=== PATIENT | female | born 1965 | race Caucasian/White ===

== ENCOUNTER 2017-08-23 08:20 | Day surgery (SDC) | payer BC ==
[2015-12-08 08:38] VITALS: BMI 36.1
--- NOTE | 2017-08-24 09:42 | PROCN ---
DATE: 08/23/2017 PROCEDURE: Tilt table test. INDICATIONS: Recurrent dizziness. MANGANESE WHEELER: Panda Reece MD DESCRIPTION OF PROCEDURE: The patient was put on the table and tilted at 30 degrees for 5 minutes and 60 degrees for 15 minutes. Blood pressure and heart rate response were monitored every 3 minutes. The patient experienced mild dizziness throughout the test. There was a 19 mmHg drop in blood pressure and a 12 beats per minute drop in heart rate. The drop in blood pressure and heart rate was slow. The patient tolerated the procedure well. IMPRESSION: Orthostatic hypotension. Dehydration needs to be ruled out. Panda Reece MD
== END 2017-08-23 10:00 | disposition home or self-care (01) ==
LOC: C.CATHLAB 08:20
PROVIDERS: ATTEND Internal Medicine
DX: I95.1 Orthostatic hypotension (principal)

== ENCOUNTER 2017-09-12 09:35 | Emergency (ER) | payer OTHER, BC ==
[2017-09-12 09:36] VITALS: BMI 36.1
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
[2017-09-12] MEDS ORDERED: Labetalol 25mg/5ml Syringe IVP STA (09:57)
[2017-09-12 10:30] LABS: BASO # 0.1 K/uL (0.0-0.2); BASO % 0.6 % (0.0-2.0); EOS # 0.1 K/uL (0.0-0.7); EOS % 0.6 % (0.0-4.0); HEMOGLOBIN 13.1 g/dL (11.0-16.0); LYMPH # 1.4 K/uL (1.0-4.3); LYMPH % 14.1 % (20.0-40.0); MEAN CELL VOLUME 82.2 fL (81.0-99.0); MEAN CORPUSCULAR HEMOGLOBIN 28.2 pg (27.0-31.0); MEAN CORPUSCULAR HGB CONC 34.3 g/dL (33.0-37.0); MEAN PLATELET VOLUME 10.9 fL (7.2-11.7); MONO % 10.1 % (0.0-10.0); NEUT # 7.2 K/uL (1.8-7.0); NEUT % 74.6 % (50.0-75.0); RBC 4.65 Mil/uL (3.80-5.20); RED CELL DISTRIBUTION WIDTH 14.2 % (11.5-14.5); WHITE BLOOD COUNT 9.6 K/uL (4.8-10.8)
[2017-09-12 10:49] LABS: ALB/GLOB RATIO 1.2 (1.0-2.1); ALBUMIN 4.2 g/dL (3.5-5.0); ALT/SGPT 114 U/L (9-52); AST/SGOT 87 U/L (14-36); BLOOD UREA NITROGEN 6 mg/dL (7-17); CALCIUM 9.2 mg/dl (8.6-10.4); GFR AFRICAN-AMERICAN > 60; GFR NON-AFRICAN AMERICAN > 60
--- NOTE | 2017-09-12 11:12 | CT ---
PROCEDURE: CT HEAD WITHOUT CONTRAST. HISTORY: TRAUMA COMPARISON: None available. TECHNIQUE: Axial computed tomography images were obtained through the head/brain without intravenous contrast. Radiation dose: Total exam DLP = 831.14 mGy-cm. This CT exam was performed using one or more of the following dose reduction techniques: Automated exposure control, adjustment of the mA and/or kV according to patient size, and/or use of iterative reconstruction technique. FINDINGS: HEMORRHAGE: No intracranial hemorrhage. BRAIN: No mass effect or edema. No atrophy or chronic microvascular ischemic changes. VENTRICLES: Unremarkable. No hydrocephalus. CALVARIUM: Unremarkable. PARANASAL SINUSES: Unremarkable as visualized. No significant inflammatory changes. MASTOID AIR CELLS: Unremarkable as visualized. No inflammatory changes. OTHER FINDINGS: None. IMPRESSION: Normal CT of the Head. No intracranial hemorrhage.
--- NOTE | 2017-09-12 11:21 | CT ---
PROCEDURE: CT Cervical Spine without contrast HISTORY: TRAUMA COMPARISON: None available. TECHNIQUE: Axial computed tomography images were obtained of the cervical spine without the use of intravenous contrast. Coronal and sagittal reformatted images were created and reviewed. Radiation dose: Total exam DLP = 538.78 mGy-cm. This CT exam was performed using one or more of the following dose reduction techniques: Automated exposure control, adjustment of the mA and/or kV according to patient size, and/or use of iterative reconstruction technique. FINDINGS: VERTEBRAE: The vertebral bodies are maintained in height. Normal alignment is maintained. The atlantoaxial articulation and odontoid process are intact. There is mild reversal of the normal lordotic curvature of the cervical spine indicating possible muscular spasm. DISCS/SPINAL CANAL/NEURAL FORAMINA: There is narrowing of the C4-5, C5-6 and C6-7 intervertebral disc spaces consistent with degenerative disc disease. There is calcified disc bulge at C5-6 and at C4-5 there is diffuse disc bulge as well as bony ridge. This results in mild central spinal stenosis at C4-5 and moderate central spinal stenosis at C5-6. Multilevel bilateral neural foraminal stenosis is noted, most pronounced on the left side at C5-6. PARASPINAL SOFT TISSUES: Unremarkable. OTHER FINDINGS: None. IMPRESSION: No evidence fracture or dislocation. Multilevel degenerative disc disease with neural foraminal and central spinal stenosis. Mild reversal of the normal curvature of the cervical spine indicates possible muscular spasm.
--- NOTE | 2017-09-12 11:54 | RAD ---
PROCEDURE: CHEST RADIOGRAPH, 1 VIEW HISTORY: TRAUMA COMPARISON: None available. FINDINGS: LUNGS: Clear. PLEURA: No pneumothorax or pleural fluid seen. CARDIOVASCULAR: Normal. OSSEOUS STRUCTURES: No significant abnormalities. VISUALIZED UPPER ABDOMEN: Normal. OTHER FINDINGS: None. IMPRESSION: No active disease.
--- NOTE | 2017-09-12 12:45 | RAD ---
PROCEDURE: Radiographs of the pelvis. HISTORY: TRAUMA COMPARISON: None. FINDINGS: BONES: Pelvic Bones: Unremarkable. Hips: Grossly unremarkable. JOINTS: Sacroiliac Joints: Unremarkable. Pubic Symphysis: Unremarkable. OTHER FINDINGS: None. IMPRESSION: Unremarkable radiographs of the pelvis.
[2017-09-12 13:23] VITALS: BP 158/90; PULSE 82; RESP 18; TEMP 98.4
--- NOTE | 2017-09-12 13:33 | RAD ---
PROCEDURE: Left Knee Radiographs. HISTORY: Pain. COMPARISON: None. FINDINGS: BONES: Left knee arthroplasty. No evidence of prosthesis loosening. No osseous fracture. Prosthesis intact. JOINTS: Normal. No osteoarthritis. JOINT EFFUSION: None. OTHER FINDINGS: None. IMPRESSION: No acute fracture.
[2017-09-12 13:48] VITALS: O2SAT 99
--- NOTE | 2017-09-12 18:54 | CARD ---
APPROVED REPORT EKG Measurement Heart [id number] <Conclusion> Normal sinus rhythm Voltage criteria for left ventricular hypertrophy Cannot rule out Septal infarct, age undetermined Abnormal ECG
== END 2017-09-12 13:57 | disposition home or self-care (01) ==
LOC: C.ER 09:35
DX: M25.562 Pain in left knee (principal); I10 Essential (primary) hypertension; V89.2XXA Person injured in unspecified motor-vehicle accident, traffic, initial encounter

== ENCOUNTER 2017-09-12 16:20 | Emergency (ER) | payer BC ==
[2017-09-12 16:37] VITALS: BMI 32.1
[2017-09-12 16:50] VITALS: RESP 18; TEMP 98
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
[2017-09-12 17:49] VITALS: BP 159/92; PULSE 80
[2017-09-12 17:50] VITALS: O2SAT 98
== END 2017-09-12 17:52 | disposition home or self-care (01) ==
LOC: C.ER 16:20
DX: I10 Essential (primary) hypertension (principal)

== ENCOUNTER 2018-01-11 22:46 | Inpatient (IN) | payer OTHER, BC ==
[2018-01-04 17:37] VITALS: BMI 34.2
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
[2018-01-12] MEDS ORDERED: Labetalol 25mg/5ml Syringe IVP STA (02:58)
[2018-01-12] MEDS ORDERED: oxyCODONE 5 mg Immediate Release Tab PO PRN (03:46)
[2018-01-12] MEDS ORDERED: Iodixanol 320 mg/ml 150 ml Bottle IV ONE (05:35)
[2018-01-12] MEDS ORDERED: Home Med 1 UNIT (Cefepime 1gm In Ns 100ml [Maxipime 1gm] 1 GM) IVPB SCH (06:00)
[2018-01-12] MEDS ORDERED: Cefepime IV 1 gm in Dextrose 1 GM/50 ML BAG IVPB SCH (06:00)
[2018-01-12] MEDS: HYDROmorphone 1 mg/ml ISec IVP PRN ×3 (07:14→19:38)
[2018-01-12 07:47] LABS: ALB/GLOB RATIO 1.4 (1.0-2.1); ALT/SGPT 73 U/L (9-52); AST/SGOT 82 U/L (14-36); BLOOD UREA NITROGEN 8 mg/dL (7-17); CALCIUM 9.2 mg/dl (8.6-10.4); GFR NON-AFRICAN AMERICAN > 60
[2018-01-12 07:49] LABS: BASO # 0.1 K/uL (0.0-0.2); BASO % 0.7 % (0.0-2.0); EOS # 0.3 K/uL (0.0-0.7); EOS % 3.1 % (0.0-4.0); LYMPH # 1.8 K/uL (1.0-4.3); LYMPH % 22.2 % (20.0-40.0); MEAN CELL VOLUME 83.8 fL (81.0-99.0); MEAN CORPUSCULAR HEMOGLOBIN 29.1 pg (27.0-31.0); MEAN CORPUSCULAR HGB CONC 34.8 g/dL (33.0-37.0); MEAN PLATELET VOLUME 9.9 fL (7.2-11.7); MONO # 0.9 K/uL (0.0-0.8); MONO % 10.6 % (0.0-10.0); NEUT # 5.3 K/uL (1.8-7.0); NEUT % 63.4 % (50.0-75.0); RBC 3.45 Mil/uL (3.80-5.20); RED CELL DISTRIBUTION WIDTH 14.6 % (11.5-14.5); WHITE BLOOD COUNT 8.3 K/uL (4.8-10.8)
[2018-01-12 07:59] LABS: INR 1.2; PROTHROMBIN TIME 12.9 SECONDS (9.7-12.2)
--- NOTE | 2018-01-12 09:33 | CT ---
Date of service: 01/12/2018 PROCEDURE: CT Angiography Abdomen, Pelvis and Lower Extremity with Contrast HISTORY: L popliteal aneurysm COMPARISON: None available. TECHNIQUE: Technique: CT angiography of the abdomen, pelvis and bilateral lower extremities performed in the arterial phase of enhancement. Coronal and sagittal reformats, and well as rotating MIP images of the vessels generated at the workstation. Intravenous contrast dose: 150 cubic centimeters Visipaque 320 Radiation dose: Total exam DLP = 2469.75 mGy-cm. This CT exam was performed using one or more of the following dose reduction techniques: Automated exposure control, adjustment of the mA and/or kV according to patient size, and/or use of iterative reconstruction technique. FINDINGS: CT ANGIOGRAPHY: ABDOMINAL AORTA:: The abdominal was unremarkable. MAJOR AORTIC BRANCHES: Celiac Derry: Unremarkable. Superior mesenteric artery: Unremarkable. Inferior mesenteric artery: Unremarkable. Renal arteries: Unremarkable. PELVIC ARTERIES: Right Common Iliac: Unremarkable. Right External Iliac: Unremarkable. Right Internal Iliac: Unremarkable. Left Common Iliac: Unremarkable. Left External Iliac: Unremarkable. Left Internal Iliac: Unremarkable. RIGHT LOWER EXTREMITY ARTERIES: Right Common Femoral: Unremarkable. Right Superficial Femoral: Unremarkable. Right Profunda Femoris: Unremarkable. Right Popliteal:There is a bilobed popliteal artery pseudoaneurysm which is mixed density. A 2 cm x 1.5 centimeter pseudoaneurysm posteriorly toward the popliteal fossa and a 2.7 x 2.2 cm pseudoaneurysm anterior/medial. There is some mass effect on the popliteal artery which is patent. Right Anterior Tibial: Unremarkable. Right Tibioperoneal Trunk: Unremarkable. Right Posterior Tibial: Unremarkable. Right Peroneal: Unremarkable. Right dorsalis pedis : Unremarkable. LEFT LOWER EXTREMITY ARTERIES: Left Common Femoral: Unremarkable. Left Superficial Femoral: Unremarkable. Left Profunda Femoris: Unremarkable. Left Popliteal: Unremarkable. Left Anterior Tibial: Unremarkable. Left Tibioperoneal Trunk: Unremarkable. Left Posterior Tibial: Unremarkable. Left Peronea: Unremarkable. Left Dorsalis pedis: Unremarkable. NON-ANGIOGRAPHIC ASPECT OF THE EXAM: LOWER THORAX: Unremarkable. LIVER: Decreased attenuation of the liver from hepatic steatosis. No gross lesion or ductal dilatation. GALLBLADDER AND BILE DUCTS: Unremarkable. PANCREAS: Unremarkable. No gross lesion or ductal dilatation. SPLEEN: Unremarkable. ADRENALS: Unremarkable. No mass. KIDNEYS AND URETERS: Unremarkable. No hydronephrosis. No solid mass. STOMACH AND BOWEL: Unremarkable. No obstruction. No gross mural thickening. APPENDIX: Normal appendix. PERITONEUM: Unremarkable. No free fluid. No free air. LYMPH NODES: Unremarkable. No enlarged lymph nodes. BLADDER: Unremarkable. REPRODUCTIVE: Unremarkable. BONES: No acute fracture. OTHER FINDINGS: None. IMPRESSION: CT angiogram abdomen/pelvis: 1. Remarkable CT angiogram of the abdomen pelvis. Left lower extremity CT angiogram: 1. Large bilobed popliteal artery pseudoaneurysm. The largest aneurysm sac pseudoaneurysm sac measures 2.7 x 2.2 centimeter. There is a smaller aneurysm sac measuring 2 centimeters x 1.5 centimeters. There is some mass effect on the popliteal artery which is otherwise patent. 2. The anterior tibial artery, posterior tibial artery and peroneal artery are patent. 3. The common femoral artery, profunda femoral artery and superficial femoral artery are patent with no aneurysm or stenosis. Right lower extremity CT angiogram: Unremarkable right lower extremity CT angiogram.
[2018-01-12] MEDS: Pantoprazole 40 mg EC Tab PO SCH (10:59)
[2018-01-12] MEDS: Naproxen 550 mg Tab PO SCH ×2 (10:59→18:09)
[2018-01-12] MEDS: Bacitracin 500 Units/gm Oint Foilpak UD TOP SCH ×2 (10:59→18:10)
[2018-01-12] MEDS ORDERED: oxyCODONE 10 mg Immediate Release Tab PO ONE (11:53)
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
[2018-01-12] MEDS: Ciprofloxacin 400mg/200ml D5W 400 MG/200 ML BAG IVPB SCH (14:05)
[2018-01-12] MEDS: DAPTOmycin 500 MG in Sodium Chloride 0.9% 100 ML IV SCH (15:44)
[2018-01-12] MEDS: Lactobacillus Acidophilus 500 MU Cap PO SCH (18:10)
--- NOTE | 2018-01-12 18:59 | CP.PCM.PN ---
<Martin Darden - Last Filed: 01/12/18 18:53> Subjective - Date & Time of Evaluation Date of Evaluation: 01/12/18 Time of Evaluation: 18:53 - Subjective Subjective: Patient seen and examined at bedside. Patient has no acute complaints. She has mild tenderness on the affected leg near the knee. Pt denies fevers or chills. Pt slept well and tolerating PO meals. Pt denies nausea, vomiting, diarrhea, dizziness, headache, skin temperature changes. Objective - Vital Signs/Intake and Output Vital Signs (last 24 hours): Temp Pulse Resp BP Pulse Ox 98.0 F 71 20 132/84 98 01/12/18 00:00 01/12/18 00:00 01/12/18 00:00 01/12/18 18:09 01/12/18 14:00 - Medications Medications: Current Medications Acetaminophen (Tylenol 325mg Tab) 650 mg PO Q6 PRN PRN Reason: Pain 1-3, Fever>100.4F Amlodipine Besylate (Norvasc) 5 mg PO DAILY [facility] Last Admin: 01/12/18 10:59 Dose: 5 mg Aspirin (Aspirin) 325 mg PO BID [facility] Last Admin: 01/12/18 18:10 Dose: 325 mg Bacitracin (Bacitracin) 1 ea TOP BID [facility] Last Admin: 01/12/18 18:10 Dose: 1 ea Carvedilol (Coreg) 25 mg PO BID [facility] Last Admin: 01/12/18 18:09 Dose: 25 mg Docusate Sodium (Colace) 100 mg PO TID [facility] Last Admin: 01/12/18 18:10 Dose: 100 mg Ferrous Sulfate (Feosol) 325 mg PO TID [facility] Last Admin: 01/12/18 18:10 Dose: 325 mg Hydromorphone HCl (Dilaudid) 1 mg IVP Q4H PRN PRN Reason: Pain, severe (8-10) Last Admin: 01/12/18 11:01 Dose: 1 mg Daptomycin 500 mg/ Sodium (Chloride) 100 mls @ 100 mls/hr IV Q24H [facility] PRN Reason: Protocol Stop: 01/17/18 14:01 Last Admin: 01/12/18 15:44 Dose: 100 mls/hr Ciprofloxacin (Cipro 400mg/200ml Dsw) 400 mg in 200 mls @ 133 mls/hr IVPB Q12H [facility] PRN Reason: Protocol Last Admin: 01/12/18 14:05 Dose: 133 mls/hr Lactobacillus Acidophilus (Bacid Acidophilus) 1 cap PO BID [facility] Last Admin: 01/12/18 18:10 Dose: 1 cap Losartan Potassium (Cozaar) 50 mg PO DAILY [facility] Last Admin: 01/12/18 10:59 Dose: 50 mg Naproxen (Anaprox Ds) 550 mg PO BID [facility] Last Admin: 01/12/18 18:09 Dose: 550 mg Pantoprazole Sodium (Protonix Ec Tab) 40 mg PO DAILY [facility] Last Admin: 01/12/18 10:59 Dose: 40 mg Rosuvastatin Calcium (Crestor) 10 mg PO HS [facility] Zolpidem Tartrate (Ambien) 5 mg PO HS PRN PRN Reason: Insomnia - Labs Labs: 01/12/18 07:00 01/12/18 07:00 PT 12.9 SECONDS (9.7-12.2) H 01/12/18 07:00 INR 1.2 01/12/18 07:00 - Constitutional Appears: Well, No Acute Distress - Head Exam Head Exam: ATRAUMATIC, NORMAL INSPECTION - Eye Exam Eye Exam: EOMI, Normal appearance Pupil Exam: NORMAL ACCOMODATION - ENT Exam ENT Exam: Mucous Membranes Moist, Normal Exam - Respiratory Exam Respiratory Exam: Clear to Ausculation Bilateral, NORMAL BREATHING PATTERN - Cardiovascular Exam Cardiovascular Exam: REGULAR RHYTHM, +S1, +S2 - GI/Abdominal Exam GI & Abdominal Exam: Normal Bowel Sounds - Extremities Exam Additional comments: +well-healing vertical incision on L knee. Aneurysm is appreciated behind knee with bounding pulse. - Neurological Exam Neurological Exam: Alert, Awake, CN II-XII Intact, Normal Gait, Oriented x3 - Skin Skin Exam: Dry, Intact, Normal Color Additional comments: +well-healing vertical incision on L knee. Assessment and Plan - Assessment and Plan (Free Text) Assessment: Left Popliteal Aneurysm Vascular Surgery Consult, Dr. Caceres * Angio Abd Ileo/Fem Runoff - Large bilobed popliteal artery aneurysm -Larges sac 2.7 x 2.2 cm, smaller sac 2x1.5 cm. Patent popliteal artery. * NPO * f/u recs * Plan is for patient to go for aneurysm repair (balloon angioplasty with dye) Monday with Dr. Caceres and Dr. Avendano Left LE US 01/10/18: * No sonographic or Doppler evidence for DVT in left lower extremity. * Suspicion of pseudoaneurysm in the popliteal fossa. Small complex collection immediately adjacent to this may represent a small hematoma. Infected Left Knee Hardware ID consulted, Dr. Chatman * Patient was being treated with Daptomycin over at [facility] prior to being transferred to [facility]. * Patient was scheduled to complete Daptomycin course on 01/16/18. s/p Left knee removal of hardware, I&D and placement of antibiotic spacer on . POD#8 - per ID, ABx spacer to remain x8 weeks Continue medication regiment at [facility]: * Acetaminophen 650mg PO q6h prn * Aspirin 325mg PO BID * Bacitracin 1ea TOP BID * Morphine 2 mg IVP q6h prn * Colace 100mg PO TID * Naproxen 500mg PO BID * Cefepime 1gm IVPB q8h * Daptomycin --> pending ID approval (completion date 01/16) Hypertension continue to monitor Continue medication regiment at [facility]: * Amlodipine 5mg PO daily * Carvedilol 25mg PO BID * Losartan 50mg PO daily Hyperlipidemia Continue medication regiment at [facility]: * Crestor 10mg PO daily Prophylactic Care VTE ppx - anticoag contraindicated 2/2 pre-op procedure, pending vascular surgery GI ppx - Protonix 40mg PO daily Ferrous Sulfate 325mg PO TID - continued home med Ambien 5mg PO HS prn - continued home med <Pj Mckay - Last Filed: 01/13/18 19:15> Objective - Vital Signs/Intake and Output Vital Signs (last 24 hours): Temp Pulse Resp BP Pulse Ox 97.9 F 69 20 157/77 H 97 01/13/18 16:00 01/13/18 16:00 01/13/18 16:00 01/13/18 18:03 01/13/18 16:00 Intake and Output: 01/13/18 01/14/18 18:59 06:59 Intake Total 280 Balance 280 - Medications Medications: Current Medications Amlodipine Besylate (Norvasc) 5 mg PO DAILY [facility] Last Admin: 01/13/18 10:35 Dose: 5 mg Aspirin (Aspirin) 325 mg PO BID [facility] Last Admin: 01/13/18 17:09 Dose: Not Given Bacitracin (Bacitracin) 1 ea TOP BID [facility] Last Admin: 01/13/18 18:05 Dose: 1 ea Carvedilol (Coreg) 25 mg PO BID [facility] Last Admin: 01/13/18 18:03 Dose: 25 mg Docusate Sodium (Colace) 100 mg PO TID [facility] Last Admin: 01/13/18 18:02 Dose: 100 mg Ferrous Sulfate (Feosol) 325 mg PO TID [facility] Last Admin: 01/13/18 18:04 Dose: 325 mg Daptomycin 500 mg/ Sodium (Chloride) 100 mls @ 100 mls/hr IV Q24H [facility] PRN Reason: Protocol Stop: 01/17/18 14:01 Last Admin: 01/13/18 17:57 Dose: 100 mls/hr Ciprofloxacin (Cipro 400mg/200ml Dsw) 400 mg in 200 mls @ 133 mls/hr IVPB Q12H [facility] PRN Reason: Protocol Last Admin: 01/13/18 17:58 Dose: 133 mls/hr Lactobacillus Acidophilus (Bacid Acidophilus) 1 cap PO BID [facility] Last Admin: 01/13/18 18:07 Dose: 1 cap Losartan Potassium (Cozaar) 50 mg PO DAILY [facility] Last Admin: 01/13/18 10:36 Dose: 50 mg Oxycodone HCl (Oxycodone Immediate Release Tab) 10 mg PO Q6 PRN PRN Reason: Pain, moderate (4-7) Last Admin: 01/13/18 17:55 Dose: 5 mg Oxycodone HCl (Oxycontin Extended Release Tab) 20 mg PO Q12H [facility] Stop: 01/16/18 22:01 Pantoprazole Sodium (Protonix Ec Tab) 40 mg PO DAILY [facility] Last Admin: 01/13/18 10:35 Dose: 40 mg Potassium Chloride (Klor-Con 10) 10 meq PO ONCE ONE Stop: 01/14/18 12:16 Rosuvastatin Calcium (Crestor) 10 mg PO HS [facility] Last Admin: 01/12/18 22:02 Dose: 10 mg Zolpidem Tartrate (Ambien) 5 mg PO HS PRN PRN Reason: Insomnia Last Admin: 01/13/18 00:44 Dose: 5 mg - Labs Labs: 01/13/18 07:11 01/13/18 07:11 PT 12.9 SECONDS (9.7-12.2) H 01/12/18 07:00 INR 1.2 01/12/18 07:00 Attending/Attestation - Attestation I have personally seen and examined this patient.: Yes I have fully participated in the care of the patient.: Yes I have reviewed all pertinent clinical information, including history, physical exam and plan: Yes
[2018-01-13] MEDS: Ciprofloxacin 400mg/200ml D5W 400 MG/200 ML BAG IVPB SCH ×2 (01:22→17:58)
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
--- NOTE | 2018-01-13 04:58 | CP.PCM.PN ---
<Joselyn Smith - Last Filed: 01/13/18 04:55> Subjective - Date & Time of Evaluation Date of Evaluation: 01/13/18 Time of Evaluation: 04:55 - Subjective Subjective: PGY-1 Medicine Progress note for Dr. Mckay Patient was seen and examined at bedside in no acute distress. Nurse reports no overnight events. Patient has no new complaints, tolerating meals. Denies chest pain, shortness of breath, nausea, vomiting, diarrhea, dizziness, fever, chills. Objective - Vital Signs/Intake and Output Vital Signs (last 24 hours): Temp Pulse Resp BP Pulse Ox 98.2 F 84 20 124/77 100 01/12/18 23:31 01/12/18 23:31 01/12/18 23:31 01/12/18 23:31 01/13/18 02:00 Intake and Output: 01/12/18 01/13/18 18:59 06:59 Intake Total 660 300 Balance 660 300 - Medications Medications: Current Medications Acetaminophen (Tylenol 325mg Tab) 650 mg PO Q6 PRN PRN Reason: Pain 1-3, Fever>100.4F Amlodipine Besylate (Norvasc) 5 mg PO DAILY [facility] Last Admin: 01/12/18 10:59 Dose: 5 mg Aspirin (Aspirin) 325 mg PO BID [facility] Last Admin: 01/12/18 18:10 Dose: 325 mg Bacitracin (Bacitracin) 1 ea TOP BID [facility] Last Admin: 01/12/18 18:10 Dose: 1 ea Carvedilol (Coreg) 25 mg PO BID [facility] Last Admin: 01/12/18 18:09 Dose: 25 mg Docusate Sodium (Colace) 100 mg PO TID [facility] Last Admin: 01/12/18 18:10 Dose: 100 mg Ferrous Sulfate (Feosol) 325 mg PO TID [facility] Last Admin: 01/12/18 18:10 Dose: 325 mg Hydromorphone HCl (Dilaudid) 1 mg IVP Q4H PRN PRN Reason: Pain, severe (8-10) Last Admin: 01/12/18 19:38 Dose: 1 mg Daptomycin 500 mg/ Sodium (Chloride) 100 mls @ 100 mls/hr IV Q24H [facility] PRN Reason: Protocol Stop: 01/17/18 14:01 Last Admin: 01/12/18 15:44 Dose: 100 mls/hr Ciprofloxacin (Cipro 400mg/200ml Dsw) 400 mg in 200 mls @ 133 mls/hr IVPB Q12H [facility] PRN Reason: Protocol Last Admin: 01/13/18 01:22 Dose: 133 mls/hr Lactobacillus Acidophilus (Bacid Acidophilus) 1 cap PO BID [facility] Last Admin: 01/12/18 18:10 Dose: 1 cap Losartan Potassium (Cozaar) 50 mg PO DAILY [facility] Last Admin: 01/12/18 10:59 Dose: 50 mg Naproxen (Anaprox Ds) 550 mg PO BID [facility] Last Admin: 01/12/18 18:09 Dose: 550 mg Pantoprazole Sodium (Protonix Ec Tab) 40 mg PO DAILY [facility] Last Admin: 01/12/18 10:59 Dose: 40 mg Rosuvastatin Calcium (Crestor) 10 mg PO HS [facility] Last Admin: 01/12/18 22:02 Dose: 10 mg Zolpidem Tartrate (Ambien) 5 mg PO HS PRN PRN Reason: Insomnia Last Admin: 01/13/18 00:44 Dose: 5 mg - Labs Labs: 01/12/18 07:00 01/12/18 07:00 PT 12.9 SECONDS (9.7-12.2) H 01/12/18 07:00 INR 1.2 01/12/18 07:00 - Constitutional Appears: Non-toxic, No Acute Distress - Head Exam Head Exam: ATRAUMATIC, NORMOCEPHALIC - Eye Exam Eye Exam: EOMI, PERRL - ENT Exam ENT Exam: Mucous Membranes Moist, Normal Exam - Respiratory Exam Respiratory Exam: Clear to Ausculation Bilateral, NORMAL BREATHING PATTERN. absent: Rales, Rhonchi, Wheezes - Cardiovascular Exam Cardiovascular Exam: REGULAR RHYTHM, +S1, +S2. absent: Murmur - GI/Abdominal Exam GI & Abdominal Exam: Soft, Normal Bowel Sounds. absent: Tenderness - Extremities Exam Additional comments: L knee incision site apparent, healing well. Aneurysm appreciable in popliteal fossa - Neurological Exam Neurological Exam: Alert, Awake, Oriented x3 - Skin Skin Exam: Dry, Intact, Normal Color, Warm Assessment and Plan - Assessment and Plan (Free Text) Plan: Left Popliteal Aneurysm Vascular Surgery Consult, Dr. Caceres * Angio Abd Ileo/Fem Runoff - Large bilobed popliteal artery aneurysm -Larges sac 2.7 x 2.2 cm, smaller sac 2x1.5 cm. Patent popliteal artery. * NPO * f/u recs * Plan is for patient to go for aneurysm repair (balloon angioplasty with dye) Monday with Dr. Caceres and Dr. Avendano, NPO at midnight Left LE US 01/10/18: * No sonographic or Doppler evidence for DVT in left lower extremity. * Suspicion of pseudoaneurysm in the popliteal fossa. Small complex collection immediately adjacent to this may represent a small hematoma. Infected Left Knee Hardware ID consulted, Dr. Chatman * Patient was being treated with Daptomycin over at [facility] prior to being transferred to [facility]. * Patient was scheduled to complete Daptomycin course on 01/16/18. s/p Left knee removal of hardware, I&D and placement of antibiotic spacer on . POD#8 - per ID, ABx spacer to remain x8 weeks Continue medication regiment at [facility]: * Acetaminophen 650mg PO q6h prn * Aspirin 325mg PO BID * Bacitracin 1ea TOP BID * Morphine 2 mg IVP q6h prn * Colace 100mg PO TID * Naproxen 500mg PO BID * Cefepime 1gm IVPB q8h * Daptomycin (completion date 01/17) Hypertension continue to monitor Continue medication regiment at [facility]: * Amlodipine 5mg PO daily * Carvedilol 25mg PO BID * Losartan 50mg PO daily Hyperlipidemia Continue medication regiment at [facility]: * Crestor 10mg PO daily Prophylactic Care VTE ppx - anticoag contraindicated 2/2 pre-op procedure, pending vascular surgery GI ppx - Protonix 40mg PO daily Ferrous Sulfate 325mg PO TID - continued home med Ambien 5mg PO HS prn - continued home med will d/w Dr. Nely Smith PGY-1 <Pj Mckay - Last Filed: 01/13/18 19:21> Objective - Vital Signs/Intake and Output Vital Signs (last 24 hours): Temp Pulse Resp BP Pulse Ox 97.9 F 69 20 157/77 H 97 01/13/18 16:00 01/13/18 16:00 01/13/18 16:00 01/13/18 18:03 01/13/18 16:00 Intake and Output: 01/13/18 01/14/18 18:59 06:59 Intake Total 280 Balance 280 - Medications Medications: Current Medications Amlodipine Besylate (Norvasc) 5 mg PO DAILY [facility] Last Admin: 01/13/18 10:35 Dose: 5 mg Aspirin (Aspirin) 325 mg PO BID [facility] Last Admin: 01/13/18 17:09 Dose: Not Given Bacitracin (Bacitracin) 1 ea TOP BID [facility] Last Admin: 01/13/18 18:05 Dose: 1 ea Carvedilol (Coreg) 25 mg PO BID [facility] Last Admin: 01/13/18 18:03 Dose: 25 mg Docusate Sodium (Colace) 100 mg PO TID [facility] Last Admin: 01/13/18 18:02 Dose: 100 mg Ferrous Sulfate (Feosol) 325 mg PO TID [facility] Last Admin: 01/13/18 18:04 Dose: 325 mg Daptomycin 500 mg/ Sodium (Chloride) 100 mls @ 100 mls/hr IV Q24H [facility] PRN Reason: Protocol Stop: 01/17/18 14:01 Last Admin: 01/13/18 17:57 Dose: 100 mls/hr Ciprofloxacin (Cipro 400mg/200ml Dsw) 400 mg in 200 mls @ 133 mls/hr IVPB Q12H [facility] PRN Reason: Protocol Last Admin: 01/13/18 17:58 Dose: 133 mls/hr Lactobacillus Acidophilus (Bacid Acidophilus) 1 cap PO BID [facility] Last Admin: 01/13/18 18:07 Dose: 1 cap Losartan Potassium (Cozaar) 50 mg PO DAILY [facility] Last Admin: 01/13/18 10:36 Dose: 50 mg Oxycodone HCl (Oxycodone Immediate Release Tab) 10 mg PO Q6 PRN PRN Reason: Pain, moderate (4-7) Last Admin: 01/13/18 17:55 Dose: 5 mg Oxycodone HCl (Oxycontin Extended Release Tab) 20 mg PO Q12H [facility] Stop: 01/16/18 22:01 Pantoprazole Sodium (Protonix Ec Tab) 40 mg PO DAILY [facility] Last Admin: 01/13/18 10:35 Dose: 40 mg Potassium Chloride (Klor-Con 10) 10 meq PO ONCE ONE Stop: 01/14/18 12:16 Rosuvastatin Calcium (Crestor) 10 mg PO HS [facility] Last Admin: 01/12/18 22:02 Dose: 10 mg Zolpidem Tartrate (Ambien) 5 mg PO HS PRN PRN Reason: Insomnia Last Admin: 01/13/18 00:44 Dose: 5 mg - Labs Labs: 01/13/18 07:11 01/13/18 07:11 PT 12.9 SECONDS (9.7-12.2) H 01/12/18 07:00 INR 1.2 01/12/18 07:00 Attending/Attestation - Attestation I have personally seen and examined this patient.: Yes I have fully participated in the care of the patient.: Yes I have reviewed all pertinent clinical information, including history, physical exam and plan: Yes Notes (Text): Patient was seen and examined. patient is complaining of knee pain and the pain medication is not helping s/p Abdominal angiography. Dr Rivera explained the angiography findings and the plan of intervention. Continue cipro and daptomycin increase her pain meds d/w RN we will follow up with Dr Rivera and Dr Chatman d/w Orthopedic surgeon yesterday monitor her LFT-Improving.Hep panel ordered
[2018-01-13 07:21] LABS: BASO # 0.1 K/uL (0.0-0.2); BASO % 0.6 % (0.0-2.0); EOS # 0.2 K/uL (0.0-0.7); EOS % 2.5 % (0.0-4.0); HEMOGLOBIN 9.4 g/dL (11.0-16.0); LYMPH # 1.5 K/uL (1.0-4.3); LYMPH % 17.2 % (20.0-40.0); MEAN CELL VOLUME 84.8 fL (81.0-99.0); MEAN CORPUSCULAR HEMOGLOBIN 29.1 pg (27.0-31.0); MEAN CORPUSCULAR HGB CONC 34.3 g/dL (33.0-37.0); MEAN PLATELET VOLUME 9.9 fL (7.2-11.7); MONO % 11.5 % (0.0-10.0); NEUT % 68.2 % (50.0-75.0); RBC 3.24 Mil/uL (3.80-5.20); RED CELL DISTRIBUTION WIDTH 14.8 % (11.5-14.5); WHITE BLOOD COUNT 8.7 K/uL (4.8-10.8)
[2018-01-13 07:51] LABS: ALB/GLOB RATIO 1.2 (1.0-2.1); ALBUMIN 3.5 g/dL (3.5-5.0); ALT/SGPT 64 U/L (9-52); AST/SGOT 54 U/L (14-36); BLOOD UREA NITROGEN 9 mg/dL (7-17); CALCIUM 9.1 mg/dl (8.6-10.4); GFR NON-AFRICAN AMERICAN > 60
--- NOTE | 2018-01-13 08:55 | CP.PCM.PN ---
Subjective - Date & Time of Evaluation Date of Evaluation: 01/13/18 Time of Evaluation: 08:53 - Subjective Subjective: Surgery Pt seen and examined. No acute events. c/o L leg pain. had CTA done. Objective - Vital Signs/Intake and Output Vital Signs (last 24 hours): Temp Pulse Resp BP Pulse Ox 98.1 F 73 20 152/76 H 99 01/13/18 08:50 01/13/18 08:50 01/13/18 08:50 01/13/18 08:50 01/13/18 08:50 Intake and Output: 01/13/18 01/13/18 06:59 18:59 Intake Total 300 Balance 300 - Medications Medications: Current Medications Acetaminophen (Tylenol 325mg Tab) 650 mg PO Q6 PRN PRN Reason: Pain 1-3, Fever>100.4F Amlodipine Besylate (Norvasc) 5 mg PO DAILY [facility] Last Admin: 01/12/18 10:59 Dose: 5 mg Aspirin (Aspirin) 325 mg PO BID [facility] Last Admin: 01/12/18 18:10 Dose: 325 mg Bacitracin (Bacitracin) 1 ea TOP BID [facility] Last Admin: 01/12/18 18:10 Dose: 1 ea Carvedilol (Coreg) 25 mg PO BID [facility] Last Admin: 01/12/18 18:09 Dose: 25 mg Docusate Sodium (Colace) 100 mg PO TID [facility] Last Admin: 01/12/18 18:10 Dose: 100 mg Ferrous Sulfate (Feosol) 325 mg PO TID [facility] Last Admin: 01/12/18 18:10 Dose: 325 mg Hydromorphone HCl (Dilaudid) 1 mg IVP Q4H PRN PRN Reason: Pain, severe (8-10) Last Admin: 01/12/18 19:38 Dose: 1 mg Daptomycin 500 mg/ Sodium (Chloride) 100 mls @ 100 mls/hr IV Q24H [facility] PRN Reason: Protocol Stop: 01/17/18 14:01 Last Admin: 01/12/18 15:44 Dose: 100 mls/hr Ciprofloxacin (Cipro 400mg/200ml Dsw) 400 mg in 200 mls @ 133 mls/hr IVPB Q12H [facility] PRN Reason: Protocol Last Admin: 01/13/18 01:22 Dose: 133 mls/hr Lactobacillus Acidophilus (Bacid Acidophilus) 1 cap PO BID [facility] Last Admin: 01/12/18 18:10 Dose: 1 cap Losartan Potassium (Cozaar) 50 mg PO DAILY [facility] Last Admin: 01/12/18 10:59 Dose: 50 mg Naproxen (Anaprox Ds) 550 mg PO BID [facility] Last Admin: 01/12/18 18:09 Dose: 550 mg Pantoprazole Sodium (Protonix Ec Tab) 40 mg PO DAILY [facility] Last Admin: 01/12/18 10:59 Dose: 40 mg Rosuvastatin Calcium (Crestor) 10 mg PO HS [facility] Last Admin: 01/12/18 22:02 Dose: 10 mg Zolpidem Tartrate (Ambien) 5 mg PO HS PRN PRN Reason: Insomnia Last Admin: 01/13/18 00:44 Dose: 5 mg - Labs Labs: 01/13/18 07:11 01/13/18 07:11 PT 12.9 SECONDS (9.7-12.2) H 01/12/18 07:00 INR 1.2 01/12/18 07:00 - Constitutional Appears: No Acute Distress - Head Exam Head Exam: ATRAUMATIC, NORMAL INSPECTION, NORMOCEPHALIC - Eye Exam Eye Exam: EOMI, Normal appearance, PERRL Pupil Exam: NORMAL ACCOMODATION, PERRL - ENT Exam ENT Exam: Mucous Membranes Moist, Normal Exam - Neck Exam Neck Exam: Full ROM, Normal Inspection. absent: Lymphadenopathy - Respiratory Exam Respiratory Exam: Clear to Ausculation Bilateral, NORMAL BREATHING PATTERN - Cardiovascular Exam Cardiovascular Exam: REGULAR RHYTHM, +S1, +S2. absent: Murmur - GI/Abdominal Exam GI & Abdominal Exam: Soft, Normal Bowel Sounds. absent: Tenderness, Pulsatile Mass - Extremities Exam Extremities Exam: Normal Capillary Refill, Tenderness. absent: Normal Inspection Additional comments: L poplitial pulsatile palpable mass. - Back Exam Back Exam: NORMAL INSPECTION - Neurological Exam Neurological Exam: Alert, Awake, CN II-XII Intact, Normal Gait, Oriented x3 - Psychiatric Exam Psychiatric exam: Normal Affect, Normal Mood - Skin Skin Exam: Dry, Intact, Normal Color, Warm Assessment and Plan - Assessment and Plan (Free Text) Assessment: 52F w. L popliteal pseudoaneurysm -CTA : 2.7 x 2cm and 1.5 x2 cm bilobed aneurism on popliteal -Possible angio w sclerosing on Tues -will d/w attending
[2018-01-13] MEDS: Pantoprazole 40 mg EC Tab PO SCH (10:35)
[2018-01-13] MEDS: Naproxen 550 mg Tab PO SCH (10:35)
[2018-01-13] MEDS: Bacitracin 500 Units/gm Oint Foilpak UD TOP SCH ×2 (10:39→18:05)
[2018-01-13] MEDS: Lactobacillus Acidophilus 500 MU Cap PO SCH ×2 (10:54→18:07)
[2018-01-13] MEDS ORDERED: oxyCODONE 5 mg Immediate Release Tab PO PRN (13:09)
[2018-01-13] MEDS: oxyCODONE 5 mg Immediate Release Tab PO PRN (17:55)
[2018-01-13] MEDS: DAPTOmycin 500 MG in Sodium Chloride 0.9% 100 ML IV SCH (17:57)
[2018-01-13] MEDS ORDERED: oxyCODONE 10 mg ER Tab (oxyCONTIN) PO SCH (22:00)
--- NOTE | 2018-01-13 22:06 | CP.PCM.PN ---
Subjective - Date & Time of Evaluation Date of Evaluation: 01/13/18 Time of Evaluation: 17:00 - Subjective Subjective: dictated Objective - Vital Signs/Intake and Output Vital Signs (last 24 hours): Temp Pulse Resp BP Pulse Ox 97.9 F 69 20 157/77 H 97 01/13/18 16:00 01/13/18 16:00 01/13/18 16:00 01/13/18 18:03 01/13/18 16:00 Intake and Output: 01/13/18 01/14/18 18:59 06:59 Intake Total 280 240 Balance 280 240 - Medications Medications: Current Medications Amlodipine Besylate (Norvasc) 5 mg PO DAILY [facility] Last Admin: 01/13/18 10:35 Dose: 5 mg Aspirin (Aspirin) 325 mg PO BID [facility] Last Admin: 01/13/18 17:09 Dose: Not Given Bacitracin (Bacitracin) 1 ea TOP BID [facility] Last Admin: 01/13/18 18:05 Dose: 1 ea Carvedilol (Coreg) 25 mg PO BID [facility] Last Admin: 01/13/18 18:03 Dose: 25 mg Docusate Sodium (Colace) 100 mg PO TID [facility] Last Admin: 01/13/18 18:02 Dose: 100 mg Ferrous Sulfate (Feosol) 325 mg PO TID [facility] Last Admin: 01/13/18 18:04 Dose: 325 mg Daptomycin 500 mg/ Sodium (Chloride) 100 mls @ 100 mls/hr IV Q24H [facility] PRN Reason: Protocol Stop: 01/17/18 14:01 Last Admin: 01/13/18 17:57 Dose: 100 mls/hr Ciprofloxacin (Cipro 400mg/200ml Dsw) 400 mg in 200 mls @ 133 mls/hr IVPB Q12H [facility] PRN Reason: Protocol Last Admin: 01/13/18 17:58 Dose: 133 mls/hr Lactobacillus Acidophilus (Bacid Acidophilus) 1 cap PO BID [facility] Last Admin: 01/13/18 18:07 Dose: 1 cap Losartan Potassium (Cozaar) 50 mg PO DAILY [facility] Last Admin: 01/13/18 10:36 Dose: 50 mg Oxycodone HCl (Oxycodone Immediate Release Tab) 10 mg PO Q6 PRN PRN Reason: Pain, moderate (4-7) Last Admin: 01/13/18 17:55 Dose: 5 mg Oxycodone HCl (Oxycontin Extended Release Tab) 20 mg PO Q12H [facility] Stop: 01/16/18 22:01 Pantoprazole Sodium (Protonix Ec Tab) 40 mg PO DAILY [facility] Last Admin: 01/13/18 10:35 Dose: 40 mg Potassium Chloride (Klor-Con 10) 10 meq PO ONCE [facility] Stop: 01/14/18 12:16 Rosuvastatin Calcium (Crestor) 10 mg PO HS [facility] Last Admin: 01/12/18 22:02 Dose: 10 mg Zolpidem Tartrate (Ambien) 5 mg PO HS PRN PRN Reason: Insomnia Last Admin: 01/13/18 00:44 Dose: 5 mg - Labs Labs: 01/13/18 07:11 01/13/18 07:11 PT 12.9 SECONDS (9.7-12.2) H 01/12/18 07:00 INR 1.2 01/12/18 07:00
[2018-01-13] MEDS: oxyCODONE 10 mg ER Tab (oxyCONTIN) PO SCH (23:49)
--- NOTE | 2018-01-14 00:37 | PN ---
Copied To: Talha Chatman MD Attending MD: Talha Chatman MD DATE: 01/13/2018 INFECTIOUS DISEASE FOLLOWUP SUBJECTIVE: The patient was seen today. She still continued to have lot of pain in the left leg. She said they were going to do some procedure for her. She has a new PICC line in the right arm. 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 She has been on Cubicin. Her wound culture on 01/05/2018 came out as Acinetobacter, which was sensitive to Cipro. Hence, I have placed her on Cipro. She will be on daptomycin and she will need it for almost six to eight weeks this thing and antibiotics IV. Also, she ended up with possibility of pseudoaneurysm, so she went for an abdominal angiography yesterday, and the reports as followed. Popliteal artery pseudoaneurysm in the left lower extremity as outlined in the impression of the report. The body of the report incorrectly described as pseudoaneurysm origin from the right popliteal artery. This is not correct. The popliteal artery pseudoaneurysm is originating from the left popliteal artery. She does have a pseudoaneurysm at this time and Vascular is following. She also has terrible pain because of that, and she also does not have in left knee. PHYSICAL EXAMINATION: VITAL SIGNS: T-max is 97.3, pulse is 69, blood pressure 110/71, respirations are 20. HEENT: Head is atraumatic and normocephalic. NECK: Supple. LUNGS: Clear otherwise. HEART: S1 and S2 are regular. ABDOMEN: Soft. Nontender. EXTREMITIES: She has this dressing over the left knee, and she has pseudoaneurysm problem in the left thigh. LABORATORY DATA: Labs were noted. Hemoglobin 9.4 today, hematocrit 27.5, white count is 8.7, ESR is 45. Sodium is 141, potassium 3.4, chlorides are 102, CO2 is 28, BUN is 9, creatinine is 0.5. ASSESSMENT AND PLAN: So at this time, the patient has two problems going on. One is that she has the spacer placed in the left knee because of the left knee infection and has been found to have Acinetobacter, and she is also on daptomycin. They did a fungal culture, which is pending. Otherwise, the wound cultures have been all negative. She developed at the same time pseudoaneurysm because of that surgery and will need something to be done for it. She needs to continue intravenous antibiotics, so that she can in the future once she is , she may be able to get a new left knee prosthesis. We will follow. Talha Chatman MD
[2018-01-14] MEDS: Ciprofloxacin 400mg/200ml D5W 400 MG/200 ML BAG IVPB SCH ×2 (01:23→14:33)
--- NOTE | 2018-01-14 03:46 | CP.PCM.PN ---
<Joselyn Smith Y - Last Filed: 01/14/18 03:42> Subjective - Date & Time of Evaluation Date of Evaluation: 01/14/18 Time of Evaluation: 03:44 - Subjective Subjective: PGY-1 Medicine Progress Note for Dr. Mckay Patient was seen and examined at bedside in no acute distress. Nurse reports no overnight events. Patient denies knee pain, endorses it as discomfort. Pain medication regimen discussed as she was previously receiving oxycodone as opposed to hydromorphine. Switching back to Oxycontin has controlled her pain. Denies chest pain, shortness of breath, nausea, vomiting, diarrhea, dizziness, fever, chills. Objective - Vital Signs/Intake and Output Vital Signs (last 24 hours): Temp Pulse Resp BP Pulse Ox 97.5 F L 82 20 120/67 98 01/14/18 00:00 01/14/18 00:00 01/14/18 00:00 01/14/18 00:00 01/14/18 00:00 Intake and Output: 01/13/18 01/14/18 18:59 06:59 Intake Total 280 240 Balance 280 240 - Medications Medications: Current Medications Amlodipine Besylate (Norvasc) 5 mg PO DAILY [facility] Last Admin: 01/13/18 10:35 Dose: 5 mg Aspirin (Aspirin) 325 mg PO BID [facility] Last Admin: 01/13/18 17:09 Dose: Not Given Bacitracin (Bacitracin) 1 ea TOP BID [facility] Last Admin: 01/13/18 18:05 Dose: 1 ea Carvedilol (Coreg) 25 mg PO BID [facility] Last Admin: 01/13/18 18:03 Dose: 25 mg Docusate Sodium (Colace) 100 mg PO TID [facility] Last Admin: 01/13/18 18:02 Dose: 100 mg Ferrous Sulfate (Feosol) 325 mg PO TID [facility] Last Admin: 01/13/18 18:04 Dose: 325 mg Daptomycin 500 mg/ Sodium (Chloride) 100 mls @ 100 mls/hr IV Q24H [facility] PRN Reason: Protocol Stop: 01/17/18 14:01 Last Admin: 01/13/18 17:57 Dose: 100 mls/hr Ciprofloxacin (Cipro 400mg/200ml Dsw) 400 mg in 200 mls @ 133 mls/hr IVPB Q12H [facility] PRN Reason: Protocol Last Admin: 01/14/18 01:23 Dose: 133 mls/hr Lactobacillus Acidophilus (Bacid Acidophilus) 1 cap PO BID [facility] Last Admin: 01/13/18 18:07 Dose: 1 cap Losartan Potassium (Cozaar) 50 mg PO DAILY [facility] Last Admin: 01/13/18 10:36 Dose: 50 mg Oxycodone HCl (Oxycodone Immediate Release Tab) 10 mg PO Q6 PRN PRN Reason: Pain, moderate (4-7) Last Admin: 01/13/18 17:55 Dose: 5 mg Oxycodone HCl (Oxycontin Extended Release Tab) 20 mg PO Q12H [facility] Stop: 01/16/18 22:01 Last Admin: 01/13/18 23:49 Dose: 20 mg Pantoprazole Sodium (Protonix Ec Tab) 40 mg PO DAILY [facility] Last Admin: 01/13/18 10:35 Dose: 40 mg Potassium Chloride (Klor-Con 10) 10 meq PO ONCE ONE Stop: 01/14/18 12:16 Rosuvastatin Calcium (Crestor) 10 mg PO HS [facility] Last Admin: 01/12/18 22:02 Dose: 10 mg Zolpidem Tartrate (Ambien) 5 mg PO HS PRN PRN Reason: Insomnia Last Admin: 01/13/18 00:44 Dose: 5 mg - Labs Labs: 01/13/18 07:11 01/13/18 07:11 PT 12.9 SECONDS (9.7-12.2) H 01/12/18 07:00 INR 1.2 01/12/18 07:00 - Constitutional Appears: Non-toxic, No Acute Distress - Head Exam Head Exam: ATRAUMATIC - Eye Exam Eye Exam: EOMI, Normal appearance, PERRL - Respiratory Exam Respiratory Exam: Clear to Ausculation Bilateral, NORMAL BREATHING PATTERN. absent: Rales, Rhonchi - Cardiovascular Exam Cardiovascular Exam: REGULAR RHYTHM, +S1, +S2. absent: Murmur - GI/Abdominal Exam GI & Abdominal Exam: Soft, Normal Bowel Sounds. absent: Tenderness - Extremities Exam Additional comments: L knee incision site apparent, healing well. Aneurysm appreciable in popliteal fossa - Neurological Exam Neurological Exam: Alert, Awake, Oriented x3 - Skin Skin Exam: Dry, Normal Color, Warm Assessment and Plan - Assessment and Plan (Free Text) Plan: Left Popliteal Aneurysm Vascular Surgery Consult, Dr. Caceres * Angio Abd Ileo/Fem Runoff - Large bilobed popliteal artery aneurysm -Larges sac 2.7 x 2.2 cm, smaller sac 2x1.5 cm. Patent popliteal artery. * NPO * f/u recs * Plan is for patient to go for aneurysm repair (balloon angioplasty with dye) Monday with Dr. Caceres and Dr. Avendano, NPO at midnight Left LE US 01/10/18: * No sonographic or Doppler evidence for DVT in left lower extremity. * Suspicion of pseudoaneurysm in the popliteal fossa. Small complex collection immediately adjacent to this may represent a small hematoma. Infected Left Knee Hardware ID consulted, Dr. Chatman * Patient was being treated with Daptomycin over at [facility] prior to being transferred to [facility]. * Patient was scheduled to complete Daptomycin course on 01/16/18. s/p Left knee removal of hardware, I&D and placement of antibiotic spacer on . POD#8 - per ID, ABx spacer to remain x8 weeks Medications: * Acetaminophen 650mg PO q6h prn * Aspirin 325mg PO BID * Bacitracin 1ea TOP BID * Oxycodone 20mg po q12 [facility], oxycodone 10mg po q6 prn * Colace 100mg PO TID * Naproxen 500mg PO BID * Ciprofloxacin 400mg IVPB q12 * Daptomycin (completion date 01/17) Hypertension continue to monitor Continue medication regiment at [facility]: * Amlodipine 5mg PO daily * Carvedilol 25mg PO BID * Losartan 50mg PO daily Hyperlipidemia Continue medication regiment at [facility]: * Crestor 10mg PO daily Prophylactic Care VTE ppx - anticoag contraindicated 2/2 pre-op procedure, pending vascular surgery GI ppx - Protonix 40mg PO daily Ferrous Sulfate 325mg PO TID - continued home med Ambien 5mg PO HS prn - continued home med will d/w Dr. Nely Smith PGY-1 <Pj Mckay - Last Filed: 01/14/18 21:26> Objective - Vital Signs/Intake and Output Vital Signs (last 24 hours): Temp Pulse Resp BP Pulse Ox 97.7 F 72 20 116/71 99 01/14/18 15:00 01/14/18 15:00 01/14/18 15:00 01/14/18 17:47 01/14/18 15:00 Intake and Output: 01/14/18 01/15/18 18:59 06:59 Intake Total 500 400 Balance 500 400 - Medications Medications: Current Medications Amlodipine Besylate (Norvasc) 5 mg PO DAILY [facility] Last Admin: 01/14/18 09:55 Dose: 5 mg Aspirin (Aspirin) 325 mg PO BID [facility] Last Admin: 01/14/18 17:46 Dose: 325 mg Bacitracin (Bacitracin) 1 ea TOP BID [facility] Last Admin: 01/14/18 17:50 Dose: 1 ea Carvedilol (Coreg) 25 mg PO BID [facility] Last Admin: 01/14/18 17:47 Dose: 25 mg Docusate Sodium (Colace) 100 mg PO TID [facility] Last Admin: 01/14/18 17:46 Dose: 100 mg Ferrous Sulfate (Feosol) 325 mg PO TID [facility] Last Admin: 01/14/18 17:47 Dose: 325 mg Daptomycin 500 mg/ Sodium (Chloride) 100 mls @ 100 mls/hr IV Q24H [facility] PRN Reason: Protocol Stop: 01/17/18 14:01 Last Admin: 01/14/18 13:30 Dose: 100 mls/hr Ciprofloxacin (Cipro 400mg/200ml Dsw) 400 mg in 200 mls @ 133 mls/hr IVPB Q12H [facility] PRN Reason: Protocol Last Admin: 01/14/18 14:33 Dose: 133 mls/hr Lactobacillus Acidophilus (Bacid Acidophilus) 1 cap PO BID [facility] Last Admin: 01/14/18 17:46 Dose: 1 cap Losartan Potassium (Cozaar) 50 mg PO DAILY [facility] Last Admin: 01/14/18 09:55 Dose: 50 mg Oxycodone HCl (Oxycodone Immediate Release Tab) 10 mg PO Q6 PRN PRN Reason: Pain, moderate (4-7) Last Admin: 01/14/18 14:34 Dose: 10 mg Oxycodone HCl (Oxycontin Extended Release Tab) 20 mg PO Q12H [facility] Stop: 01/16/18 22:01 Last Admin: 09/02/18 09:54 Dose: 20 mg Pantoprazole Sodium (Protonix Ec Tab) 40 mg PO DAILY [facility] Last Admin: 01/14/18 09:55 Dose: 40 mg Rosuvastatin Calcium (Crestor) 10 mg PO HS [facility] Last Admin: 01/14/18 16:58 Dose: Not Given Zolpidem Tartrate (Ambien) 5 mg PO HS PRN PRN Reason: Insomnia Last Admin: 01/13/18 00:44 Dose: 5 mg - Labs Labs: 01/14/18 08:10 01/14/18 08:10 PT 12.9 SECONDS (9.7-12.2) H 01/12/18 07:00 INR 1.2 01/12/18 07:00 Attending/Attestation - Attestation I have personally seen and examined this patient.: Yes I have fully participated in the care of the patient.: Yes I have reviewed all pertinent clinical information, including history, physical exam and plan: Yes Notes (Text): seen and examined by me. Discussed about her pain meds.Changes made continue daptomycin and cipro follow Dr Chatman and Dr Rivera
--- NOTE | 2018-01-14 07:37 | CP.PCM.PN ---
Subjective - Date & Time of Evaluation Date of Evaluation: 01/14/18 Time of Evaluation: 07:35 - Subjective Subjective: Surgery PT seen and examined. No acute events. Denies fever. c/o leg pain. Immobilizer in place. Objective - Vital Signs/Intake and Output Vital Signs (last 24 hours): Temp Pulse Resp BP Pulse Ox 97.5 F L 82 20 120/67 98 01/14/18 00:00 01/14/18 00:00 01/14/18 00:00 01/14/18 00:00 01/14/18 00:00 Intake and Output: 01/14/18 01/14/18 06:59 18:59 Intake Total 640 Balance 640 - Medications Medications: Current Medications Amlodipine Besylate (Norvasc) 5 mg PO DAILY [facility] Last Admin: 01/13/18 10:35 Dose: 5 mg Aspirin (Aspirin) 325 mg PO BID [facility] Last Admin: 01/13/18 17:09 Dose: Not Given Bacitracin (Bacitracin) 1 ea TOP BID [facility] Last Admin: 01/13/18 18:05 Dose: 1 ea Carvedilol (Coreg) 25 mg PO BID [facility] Last Admin: 01/13/18 18:03 Dose: 25 mg Docusate Sodium (Colace) 100 mg PO TID [facility] Last Admin: 01/13/18 18:02 Dose: 100 mg Ferrous Sulfate (Feosol) 325 mg PO TID [facility] Last Admin: 01/13/18 18:04 Dose: 325 mg Daptomycin 500 mg/ Sodium (Chloride) 100 mls @ 100 mls/hr IV Q24H [facility] PRN Reason: Protocol Stop: 01/17/18 14:01 Last Admin: 01/13/18 17:57 Dose: 100 mls/hr Ciprofloxacin (Cipro 400mg/200ml Dsw) 400 mg in 200 mls @ 133 mls/hr IVPB Q12H [facility] PRN Reason: Protocol Last Admin: 01/14/18 01:23 Dose: 133 mls/hr Lactobacillus Acidophilus (Bacid Acidophilus) 1 cap PO BID [facility] Last Admin: 01/13/18 18:07 Dose: 1 cap Losartan Potassium (Cozaar) 50 mg PO DAILY [facility] Last Admin: 01/13/18 10:36 Dose: 50 mg Oxycodone HCl (Oxycodone Immediate Release Tab) 10 mg PO Q6 PRN PRN Reason: Pain, moderate (4-7) Last Admin: 01/13/18 17:55 Dose: 5 mg Oxycodone HCl (Oxycontin Extended Release Tab) 20 mg PO Q12H [facility] Stop: 01/16/18 22:01 Last Admin: 01/13/18 23:49 Dose: 20 mg Pantoprazole Sodium (Protonix Ec Tab) 40 mg PO DAILY [facility] Last Admin: 01/13/18 10:35 Dose: 40 mg Potassium Chloride (Klor-Con 10) 10 meq PO ONCE ONE Stop: 01/14/18 12:16 Rosuvastatin Calcium (Crestor) 10 mg PO HS [facility] Last Admin: 01/12/18 22:02 Dose: 10 mg Zolpidem Tartrate (Ambien) 5 mg PO HS PRN PRN Reason: Insomnia Last Admin: 01/13/18 00:44 Dose: 5 mg - Labs Labs: 01/13/18 07:11 01/13/18 07:11 PT 12.9 SECONDS (9.7-12.2) H 01/12/18 07:00 INR 1.2 01/12/18 07:00 - Constitutional Appears: No Acute Distress - Head Exam Head Exam: ATRAUMATIC, NORMAL INSPECTION, NORMOCEPHALIC - Eye Exam Eye Exam: EOMI, Normal appearance, PERRL Pupil Exam: NORMAL ACCOMODATION, PERRL - ENT Exam ENT Exam: Mucous Membranes Moist, Normal Exam - Neck Exam Neck Exam: Full ROM, Normal Inspection. absent: Lymphadenopathy - Respiratory Exam Respiratory Exam: NORMAL BREATHING PATTERN - Cardiovascular Exam Cardiovascular Exam: REGULAR RHYTHM, +S1, +S2. absent: Murmur - GI/Abdominal Exam GI & Abdominal Exam: Soft. absent: Distended, Tenderness - Extremities Exam Extremities Exam: absent: Full ROM, Normal Inspection Additional comments: R leg immobilizer. palpable pulsatile popliteal mass R - Back Exam Back Exam: NORMAL INSPECTION - Neurological Exam Neurological Exam: Alert, Awake, CN II-XII Intact, Normal Gait, Oriented x3 - Psychiatric Exam Psychiatric exam: Normal Affect, Normal Mood - Skin Skin Exam: Dry, Intact, Normal Color, Warm Assessment and Plan - Assessment and Plan (Free Text) Assessment: 52F w. L popliteal pseudoaneurysm -CTA : 2.7 x 2cm and 1.5 x2 cm bilobed aneurism on popliteal -Possible angio w sclerosing on -NPO after midnight on -will d/w attending
[2018-01-14 08:42] LABS: BASO % 0.5 % (0.0-2.0); EOS # 0.3 K/uL (0.0-0.7); EOS % 3.1 % (0.0-4.0); HEMOGLOBIN 9.2 g/dL (11.0-16.0); LYMPH # 2.1 K/uL (1.0-4.3); LYMPH % 25.8 % (20.0-40.0); MEAN CELL VOLUME 85.7 fL (81.0-99.0); MEAN CORPUSCULAR HEMOGLOBIN 29.4 pg (27.0-31.0); MEAN CORPUSCULAR HGB CONC 34.3 g/dL (33.0-37.0); MEAN PLATELET VOLUME 10.1 fL (7.2-11.7); MONO # 0.9 K/uL (0.0-0.8); MONO % 11.6 % (0.0-10.0); NEUT # 4.8 K/uL (1.8-7.0); NRBC % 0.1 % (0.0-2.0); RBC 3.14 Mil/uL (3.80-5.20); WHITE BLOOD COUNT 8.1 K/uL (4.8-10.8)
[2018-01-14 09:12] LABS: ALB/GLOB RATIO 1.3 (1.0-2.1); ALBUMIN 3.4 g/dL (3.5-5.0); ALT/SGPT 69 U/L (9-52); AST/SGOT 63 U/L (14-36); BLOOD UREA NITROGEN 10 mg/dL (7-17); GFR NON-AFRICAN AMERICAN > 60
[2018-01-14] MEDS: oxyCODONE 10 mg ER Tab (oxyCONTIN) PO SCH ×2 (09:54→21:43)
[2018-01-14] MEDS: Pantoprazole 40 mg EC Tab PO SCH (09:55)
[2018-01-14] MEDS: Lactobacillus Acidophilus 500 MU Cap PO SCH ×2 (09:56→17:46)
[2018-01-14] MEDS: Bacitracin 500 Units/gm Oint Foilpak UD TOP SCH ×2 (09:57→17:50)
[2018-01-14] MEDS ORDERED: Potassium Chloride 10 mEq ER Tab PO ONE ×2 (10:15→12:15)
[2018-01-14] MEDS: DAPTOmycin 500 MG in Sodium Chloride 0.9% 100 ML IV SCH (13:30)
[2018-01-14] MEDS: oxyCODONE 5 mg Immediate Release Tab PO PRN (14:34)
--- NOTE | 2018-01-14 21:17 | CP.PCM.PN ---
Subjective - Date & Time of Evaluation Date of Evaluation: 01/14/18 Time of Evaluation: 12:45 - Subjective Subjective: dictated Objective - Vital Signs/Intake and Output Vital Signs (last 24 hours): Temp Pulse Resp BP Pulse Ox 97.7 F 72 20 116/71 99 01/14/18 15:00 01/14/18 15:00 01/14/18 15:00 01/14/18 17:47 01/14/18 15:00 Intake and Output: 01/14/18 01/15/18 18:59 06:59 Intake Total 500 400 Balance 500 400 - Medications Medications: Current Medications Amlodipine Besylate (Norvasc) 5 mg PO DAILY [facility] Last Admin: 01/14/18 09:55 Dose: 5 mg Aspirin (Aspirin) 325 mg PO BID [facility] Last Admin: 01/14/18 17:46 Dose: 325 mg Bacitracin (Bacitracin) 1 ea TOP BID [facility] Last Admin: 01/14/18 17:50 Dose: 1 ea Carvedilol (Coreg) 25 mg PO BID [facility] Last Admin: 01/14/18 17:47 Dose: 25 mg Docusate Sodium (Colace) 100 mg PO TID [facility] Last Admin: 01/14/18 17:46 Dose: 100 mg Ferrous Sulfate (Feosol) 325 mg PO TID [facility] Last Admin: 01/14/18 17:47 Dose: 325 mg Daptomycin 500 mg/ Sodium (Chloride) 100 mls @ 100 mls/hr IV Q24H [facility] PRN Reason: Protocol Stop: 01/17/18 14:01 Last Admin: 01/14/18 13:30 Dose: 100 mls/hr Ciprofloxacin (Cipro 400mg/200ml Dsw) 400 mg in 200 mls @ 133 mls/hr IVPB Q12H [facility] PRN Reason: Protocol Last Admin: 01/14/18 14:33 Dose: 133 mls/hr Lactobacillus Acidophilus (Bacid Acidophilus) 1 cap PO BID [facility] Last Admin: 01/14/18 17:46 Dose: 1 cap Losartan Potassium (Cozaar) 50 mg PO DAILY [facility] Last Admin: 01/14/18 09:55 Dose: 50 mg Oxycodone HCl (Oxycodone Immediate Release Tab) 10 mg PO Q6 PRN PRN Reason: Pain, moderate (4-7) Last Admin: 01/14/18 14:34 Dose: 10 mg Oxycodone HCl (Oxycontin Extended Release Tab) 20 mg PO Q12H [facility] Stop: 01/16/18 22:01 Last Admin: 01/14/18 09:54 Dose: 20 mg Pantoprazole Sodium (Protonix Ec Tab) 40 mg PO DAILY [facility] Last Admin: 01/14/18 09:55 Dose: 40 mg Rosuvastatin Calcium (Crestor) 10 mg PO HS [facility] Last Admin: 01/14/18 16:58 Dose: Not Given Zolpidem Tartrate (Ambien) 5 mg PO HS PRN PRN Reason: Insomnia Last Admin: 01/13/18 00:44 Dose: 5 mg - Labs Labs: 01/14/18 08:10 01/14/18 08:10 PT 12.9 SECONDS (9.7-12.2) H 01/12/18 07:00 INR 1.2 01/12/18 07:00
[2018-01-15] MEDS: oxyCODONE 5 mg Immediate Release Tab PO PRN ×3 (00:54→16:16)
--- NOTE | 2018-01-15 00:54 | PN ---
Copied To: Talha Chatman MD Attending MD: Talha Chatman MD DATE: 01/14/2018 INFECTIOUS DISEASE FOLLOWUP SUBJECTIVE: The patient remains in pain in the left thigh. She has a pseudoaneurysm. She also has a spacer as she had a knee injection, and the knee has been removed. She says she wants her medications every four hours for pain as the pain becomes worse. Then, she does not able to tolerate it as she has had some delay in getting pain medications, otherwise she feels okay. PHYSICAL EXAMINATION: GENERAL: She is alert, awake, and oriented. VITAL SIGNS: T-max is 97.7, pulse 72, blood pressure 116/71, and respirations are 20. HEENT: Head is atraumatic. NECK: Supple. LUNGS: Clear. HEART: S1, S2 are regular. ABDOMEN: Soft, nontender. No guarding, no rigidity present. EXTREMITIES: Left knee, she has a dressing present and mild edema on the left leg, otherwise she is unremarkable. LABORATORY DATA: Labs are okay. White count is 8.1, hemoglobin 9.2, hematocrit 26.9, and platelet count is 277. Potassium is 3.4, creatinine is 0.6. AST and ALT are mildly elevated. ASSESSMENT AND PLAN: The patient is on intravenous antibiotics. She will need for six weeks. She also needs a peripherally inserted central catheter line. I think she has a peripherally inserted central catheter line at the time I am dictating . I have put her on daptomycin and Cipro that needs to continue. I think, she has a peripherally inserted central catheter line. If she does not, she needs one. Anyway, she was waiting for pseudoaneurysm treatment with the vascular surgeon, and then probably she will be able to go to rehab. We will follow. Talha Chatman MD
[2018-01-15] MEDS: Ciprofloxacin 400mg/200ml D5W 400 MG/200 ML BAG IVPB SCH ×2 (01:20→14:39)
--- NOTE | 2018-01-15 06:27 | CP.PCM.PN ---
<Tristen Corbin - Last Filed: 01/15/18 06:24> Subjective - Date & Time of Evaluation Date of Evaluation: 01/15/18 Time of Evaluation: 06:25 - Subjective Subjective: PGY2 Medicine Note for Dr. Cornell Patient seen and examined this morning at bedside. No acute events overnight. Patient is still experieincing minimal pain behind her knee. She is currently scheduled for the OR on monday. Patient has no other complaints at this time. ROS negative. Objective - Vital Signs/Intake and Output Vital Signs (last 24 hours): Temp Pulse Resp BP Pulse Ox 98.9 F 83 20 134/73 97 01/15/18 00:00 01/15/18 00:00 01/15/18 00:00 01/15/18 00:00 01/15/18 00:00 Intake and Output: 01/14/18 01/15/18 18:59 06:59 Intake Total 500 400 Balance 500 400 - Medications Medications: Current Medications Amlodipine Besylate (Norvasc) [address] [facility] Last Admin: 01/14/18 09:55 Dose: 5 mg Aspirin (Aspirin) [address] [facility] Last Admin: 01/14/18 17:46 Dose: 325 mg Bacitracin (Bacitracin) [address] [facility] Last Admin: 01/14/18 17:50 Dose: 1 ea Carvedilol (Coreg) [address] [facility] Last Admin: 01/14/18 17:47 Dose: 25 mg Docusate Sodium (Colace) [address] [facility] Last Admin: 01/14/18 17:46 Dose: 100 mg Ferrous Sulfate (Feosol) [address] [facility] Last Admin: 01/14/18 17:47 Dose: 325 mg Daptomycin 500 mg/ Sodium (Chloride) 100 mls @ 100 mls/hr IV Q24H [facility] PRN Reason: Protocol Stop: 01/17/18 14:01 Last Admin: 01/14/18 13:30 Dose: 100 mls/hr Ciprofloxacin (Cipro 400mg/200ml Dsw) 400 mg in 200 mls @ 133 mls/hr IVPB Q12H [facility] PRN Reason: Protocol Last Admin: 01/15/18 01:20 Dose: 133 mls/hr Lactobacillus Acidophilus (Bacid Acidophilus) [address] [facility] Last Admin: 01/14/18 17:46 Dose: 1 cap Losartan Potassium (Cozaar) [address] [facility] Last Admin: 01/14/18 09:55 Dose: 50 mg Oxycodone HCl (Oxycodone Immediate Release Tab) 10 mg PO Q6 PRN PRN Reason: Pain, moderate (4-7) Last Admin: 01/15/18 00:54 Dose: 10 mg Oxycodone HCl (Oxycontin Extended Release Tab) 20 mg PO Q12H [facility] Stop: 01/16/18 22:01 Last Admin: 01/14/18 21:43 Dose: 20 mg Pantoprazole Sodium (Protonix Ec Tab) [address] [facility] Last Admin: 01/14/18 09:55 Dose: 40 mg Rosuvastatin Calcium (Crestor) [address] [facility] Last Admin: 01/14/18 16:58 Dose: Not Given Zolpidem Tartrate (Ambien) 5 mg PO HS PRN PRN Reason: Insomnia Last Admin: 01/14/18 21:49 Dose: 5 mg - Labs Labs: 01/14/18 08:10 01/14/18 08:10 PT 12.9 SECONDS (9.7-12.2) H 01/12/18 07:00 INR 1.2 01/12/18 07:00 - Additional Findings Additional findings: - Constitutional Appears: Non-toxic, No Acute Distress - Head Exam Head Exam: ATRAUMATIC, NORMOCEPHALIC - Eye Exam Eye Exam: EOMI, Normal appearance - ENT Exam ENT Exam: Mucous Membranes Moist - Neck Exam Neck exam: Positive for: Normal Inspection. Negative for: Lymphadenopathy, Tenderness - Respiratory Exam Respiratory Exam: Clear to Auscultation Bilateral, NORMAL BREATHING PATTERN. absent: Accessory Muscle Use, Rales, Rhonchi, Wheezes, Respiratory Distress - Cardiovascular Exam Cardiovascular Exam: REGULAR RHYTHM, +S1, +S2 - GI/Abdominal Exam GI & Abdominal Exam: Normal Bowel Sounds, Soft. absent: Distended, Firm, Guarding, Rebound, Rigid, Tenderness - Extremities Exam Extremities exam: Positive for: normal capillary refill, pedal pulses present. Negative for: calf tenderness, pedal edema Additional comments: Left leg in full leg brace. Patient is able to move left toes, neuro-vascularly intact. normal cap refill <2sec. - Neurological Exam Neurological exam: Alert, CN II-XII Intact, Oriented x3 - Psychiatric Exam Psychiatric exam: Normal Affect, Normal Mood - Skin Skin Exam: Dry, Warm Assessment and Plan - Assessment and Plan (Free Text) Plan: Left Popliteal Aneurysm Vascular Surgery Consult, Dr. Caceres * Angio Abd Ileo/Fem Runoff - Large bilobed popliteal artery aneurysm -Larges sac 2.7 x 2.2 cm, smaller sac 2x1.5 cm. Patent popliteal artery. * NPO * f/u recs * Plan is for patient to go for aneurysm repair (balloon angioplasty with dye) Monday with Dr. Caceres and Dr. Avendano, NPO at midnight Left LE US 01/10/18: * No sonographic or Doppler evidence for DVT in left lower extremity. * Suspicion of pseudoaneurysm in the popliteal fossa. Small complex collection immediately adjacent to this may represent a small hematoma. Infected Left Knee Hardware ID consulted, Dr. Chatman * Patient was being treated with Daptomycin over at [facility] prior to being transferred to [facility]. * Patient was scheduled to complete Daptomycin course on 01/16/18. s/p Left knee removal of hardware, I&D and placement of antibiotic spacer on . POD#9 - per ID, ABx spacer to remain x8 weeks Medications: * Acetaminophen 650mg PO q6h prn * Aspirin 325mg PO BID * Bacitracin 1ea TOP BID * Oxycodone 20mg po q12 [facility]ano, oxycodone 10mg po q6 prn * Colace 100mg PO TID * Naproxen 500mg PO BID * Ciprofloxacin 400mg IVPB q12 * Daptomycin (completion date 01/17) Hypertension continue to monitor Continue medication regiment at [facility]: * Amlodipine 5mg PO daily * Carvedilol 25mg PO BID * Losartan 50mg PO daily Hyperlipidemia Continue medication regiment at [facility]: * Crestor 10mg PO daily Prophylactic Care VTE ppx - anticoag contraindicated 2/2 pre-op procedure, pending vascular surgery GI ppx - Protonix 40mg PO daily Ferrous Sulfate 325mg PO TID - continued home med Ambien 5mg PO HS prn - continued home med Will discuss case with Dr. Aneta Corbin PGY2 <Matias Cornell - Last Filed: 01/15/18 15:26> Objective - Vital Signs/Intake and Output Vital Signs (last 24 hours): Temp Pulse Resp BP Pulse Ox 98.5 F 69 20 130/69 96 01/15/18 07:29 01/15/18 07:29 01/15/18 07:29 01/15/18 09:39 01/15/18 07:29 Intake and Output: 01/15/18 01/15/18 06:59 18:59 Intake Total 400 400 Balance 400 400 - Medications Medications: Current Medications Amlodipine Besylate (Norvasc) [address] [facility] Last Admin: 01/15/18 09:38 Dose: 5 mg Aspirin (Aspirin) [address] [facility] Last Admin: 01/15/18 09:39 Dose: 325 mg Bacitracin (Bacitracin) [address] [facility] Last Admin: 01/15/18 09:54 Dose: 1 ea Carvedilol (Coreg) [address] [facility] Last Admin: 01/15/18 09:39 Dose: 25 mg Docusate Sodium (Colace) [address] [facility] Last Admin: 01/15/18 14:39 Dose: 100 mg Ferrous Sulfate (Feosol) [address] [facility] Last Admin: 01/15/18 09:39 Dose: 325 mg Daptomycin 500 mg/ Sodium (Chloride) 100 mls @ 100 mls/hr IV Q24H [facility] PRN Reason: Protocol Stop: 01/17/18 14:01 Last Admin: 01/14/18 13:30 Dose: 100 mls/hr Ciprofloxacin (Cipro 400mg/200ml Dsw) 400 mg in 200 mls @ 133 mls/hr IVPB Q12H [facility] PRN Reason: Protocol Last Admin: 01/15/18 14:39 Dose: 133 mls/hr Lactobacillus Acidophilus (Bacid Acidophilus) [address] [facility] Last Admin: 01/15/18 09:39 Dose: 1 cap Losartan Potassium (Cozaar) [address] [facility] Last Admin: 01/15/18 09:39 Dose: 50 mg Morphine Sulfate (Morphine) 3 mg IVP Q3 PRN PRN Reason: Pain, severe (8-10) Oxycodone HCl (Oxycodone Immediate Release Tab) 10 mg PO Q6 PRN PRN Reason: Pain, moderate (4-7) Last Admin: 01/15/18 07:36 Dose: 10 mg Oxycodone HCl (Oxycontin Extended Release Tab) 20 mg PO Q12H [facility] Stop: 01/16/18 22:01 Last Admin: 01/15/18 09:53 Dose: 20 mg Pantoprazole Sodium (Protonix Ec Tab) 40 mg PO DAILY [facility] Last Admin: 01/15/18 09:39 Dose: 40 mg Rosuvastatin Calcium (Crestor) 10 mg PO HS [facility] Last Admin: 01/14/18 16:58 Dose: Not Given Zolpidem Tartrate (Ambien) 5 mg PO HS PRN PRN Reason: Insomnia Last Admin: 01/14/18 21:49 Dose: 5 mg - Labs Labs: 01/15/18 07:42 01/15/18 07:42 PT 12.9 SECONDS (9.7-12.2) H 01/12/18 07:00 INR 1.2 01/12/18 07:00 Attending/Attestation - Attestation I have personally seen and examined this patient.: Yes I have fully participated in the care of the patient.: Yes I have reviewed all pertinent clinical information, including history, physical exam and plan: Yes Notes (Text): 01/15/18 15:20 Medical attending: Patient was seen and examined by me, reviewed the above note by the resident The patient explained she was still having a lot of pain when I saw her. She says she does ok with the PO medications but when she moves the pain is exacerbated and gets a lot worse. She is currently wearing an immobilizer and she does have sensation on exam and also palpatble pulses in the TP and DP area of foot. Patient is pending OR tommorow as she has a left popliteal pseudoanursym. As mentioned previously she was a transfered from [facility] after having hardware removal and placement of antiobiotic spacer. She remains on IV abx as well. While in [place] she was found to have a pseudoaneursym in the popliteal fossa. thank you Matias Cornell
[2018-01-15 07:51] LABS: BASO % 0.5 % (0.0-2.0); EOS # 0.3 K/uL (0.0-0.7); EOS % 3.4 % (0.0-4.0); HEMOGLOBIN 9.6 g/dL (11.0-16.0); LYMPH % 25.3 % (20.0-40.0); MEAN CORPUSCULAR HGB CONC 33.7 g/dL (33.0-37.0); MEAN PLATELET VOLUME 10.1 fL (7.2-11.7); MONO # 1.1 K/uL (0.0-0.8); MONO % 13.9 % (0.0-10.0); NEUT # 4.5 K/uL (1.8-7.0); NEUT % 56.9 % (50.0-75.0); RBC 3.3 Mil/uL (3.80-5.20); RED CELL DISTRIBUTION WIDTH 15.4 % (11.5-14.5); WHITE BLOOD COUNT 7.8 K/uL (4.8-10.8)
[2018-01-15 08:08] LABS: ALB/GLOB RATIO 1.3 (1.0-2.1); ALBUMIN 3.5 g/dL (3.5-5.0); ALT/SGPT 71 U/L (9-52); AST/SGOT 55 U/L (14-36); BLOOD UREA NITROGEN 8 mg/dL (7-17); GFR NON-AFRICAN AMERICAN > 60
--- NOTE | 2018-01-15 08:22 | CP.PCM.PN ---
<Samreen Lobo - Last Filed: 01/15/18 08:20> Subjective - Date & Time of Evaluation Date of Evaluation: 01/15/18 Time of Evaluation: 08:20 - Subjective Subjective: Surgery pt seen and examined. No acute events. c/o knee pain on R. denies fever, nausea. Objective - Vital Signs/Intake and Output Vital Signs (last 24 hours): Temp Pulse Resp BP Pulse Ox 98.5 F 69 20 130/69 96 01/15/18 07:29 01/15/18 07:29 01/15/18 07:29 01/15/18 07:29 01/15/18 07:29 Intake and Output: 01/15/18 01/15/18 06:59 18:59 Intake Total 400 400 Balance 400 400 - Medications Medications: Current Medications Amlodipine Besylate (Norvasc) 5 mg PO DAILY [facility] Last Admin: 01/14/18 09:55 Dose: 5 mg Aspirin (Aspirin) 325 mg PO BID [facility] Last Admin: 01/14/18 17:46 Dose: 325 mg Bacitracin (Bacitracin) 1 ea TOP BID [facility] Last Admin: 01/14/18 17:50 Dose: 1 ea Carvedilol (Coreg) 25 mg PO BID [facility] Last Admin: 01/14/18 17:47 Dose: 25 mg Docusate Sodium (Colace) 100 mg PO TID [facility] Last Admin: 01/14/18 17:46 Dose: 100 mg Ferrous Sulfate (Feosol) 325 mg PO TID [facility] Last Admin: 01/14/18 17:47 Dose: 325 mg Daptomycin 500 mg/ Sodium (Chloride) 100 mls @ 100 mls/hr IV Q24H [facility] PRN Reason: Protocol Stop: 01/17/18 14:01 Last Admin: 01/14/18 13:30 Dose: 100 mls/hr Ciprofloxacin (Cipro 400mg/200ml Dsw) 400 mg in 200 mls @ 133 mls/hr IVPB Q12H [facility] PRN Reason: Protocol Last Admin: 01/15/18 01:20 Dose: 133 mls/hr Lactobacillus Acidophilus (Bacid Acidophilus) 1 cap PO BID [facility] Last Admin: 01/14/18 17:46 Dose: 1 cap Losartan Potassium (Cozaar) 50 mg PO DAILY [facility] Last Admin: 01/14/18 09:55 Dose: 50 mg Oxycodone HCl (Oxycodone Immediate Release Tab) 10 mg PO Q6 PRN PRN Reason: Pain, moderate (4-7) Last Admin: 01/15/18 07:36 Dose: 10 mg Oxycodone HCl (Oxycontin Extended Release Tab) 20 mg PO Q12H [facility] Stop: 01/16/18 22:01 Last Admin: 01/14/18 21:43 Dose: 20 mg Pantoprazole Sodium (Protonix Ec Tab) 40 mg PO DAILY [facility] Last Admin: 01/14/18 09:55 Dose: 40 mg Rosuvastatin Calcium (Crestor) 10 mg PO HS [facility] Last Admin: 01/14/18 16:58 Dose: Not Given Zolpidem Tartrate (Ambien) 5 mg PO HS PRN PRN Reason: Insomnia Last Admin: 01/14/18 21:49 Dose: 5 mg - Labs Labs: 01/15/18 07:42 01/15/18 07:42 PT 12.9 SECONDS (9.7-12.2) H 01/12/18 07:00 INR 1.2 01/12/18 07:00 - Constitutional Appears: No Acute Distress - Head Exam Head Exam: ATRAUMATIC, NORMAL INSPECTION, NORMOCEPHALIC - Eye Exam Eye Exam: EOMI, Normal appearance, PERRL Pupil Exam: NORMAL ACCOMODATION, PERRL - ENT Exam ENT Exam: Mucous Membranes Moist, Normal Exam - Neck Exam Neck Exam: Full ROM, Normal Inspection. absent: Lymphadenopathy - Respiratory Exam Respiratory Exam: NORMAL BREATHING PATTERN - Cardiovascular Exam Cardiovascular Exam: REGULAR RHYTHM, +S1, +S2. absent: Murmur - GI/Abdominal Exam GI & Abdominal Exam: Soft, Normal Bowel Sounds. absent: Distended, Firm, Tenderness, Pulsatile Mass - Extremities Exam Extremities Exam: Normal Capillary Refill, Tenderness. absent: Joint Swelling, Normal Inspection, Pedal Edema Additional comments: R popliteal area: palpable pulsatile mass - Back Exam Back Exam: NORMAL INSPECTION - Neurological Exam Neurological Exam: Alert, Awake, CN II-XII Intact, Normal Gait, Oriented x3 - Psychiatric Exam Psychiatric exam: Normal Affect, Normal Mood - Skin Skin Exam: Dry, Intact, Normal Color, Warm Assessment and Plan - Assessment and Plan (Free Text) Assessment: 52F w. L popliteal pseudoaneurysm -CTA : 2.7 x 2cm and 1.5 x2 cm bilobed aneurism on popliteal -angio w sclerosing on IR -NPO after midnight on -will d/w attending <Matias Cornell H - Last Filed: 01/15/18 15:25> Objective - Vital Signs/Intake and Output Vital Signs (last 24 hours): Temp Pulse Resp BP Pulse Ox 98.5 F 69 20 130/69 96 01/15/18 07:29 01/15/18 07:29 01/15/18 07:29 01/15/18 09:39 01/15/18 07:29 Intake and Output: 01/15/18 01/15/18 06:59 18:59 Intake Total 400 400 Balance 400 400 - Medications Medications: Current Medications Amlodipine Besylate (Norvasc) 5 mg PO DAILY [facility] Last Admin: 01/15/18 09:38 Dose: 5 mg Aspirin (Aspirin) 325 mg PO BID [facility] Last Admin: 01/15/18 09:39 Dose: 325 mg Bacitracin (Bacitracin) 1 ea TOP BID [facility] Last Admin: 01/15/18 09:54 Dose: 1 ea Carvedilol (Coreg) 25 mg PO BID [facility] Last Admin: 01/15/18 09:39 Dose: 25 mg Docusate Sodium (Colace) 100 mg PO TID [facility] Last Admin: 01/15/18 14:39 Dose: 100 mg Ferrous Sulfate (Feosol) 325 mg PO TID [facility] Last Admin: 01/15/18 09:39 Dose: 325 mg Daptomycin 500 mg/ Sodium (Chloride) 100 mls @ 100 mls/hr IV Q24H [facility] PRN Reason: Protocol Stop: 01/17/18 14:01 Last Admin: 01/14/18 13:30 Dose: 100 mls/hr Ciprofloxacin (Cipro 400mg/200ml Dsw) 400 mg in 200 mls @ 133 mls/hr IVPB Q12H [facility] PRN Reason: Protocol Last Admin: 01/15/18 14:39 Dose: 133 mls/hr Lactobacillus Acidophilus (Bacid Acidophilus) 1 cap PO BID [facility] Last Admin: 01/15/18 09:39 Dose: 1 cap Losartan Potassium (Cozaar) 50 mg PO DAILY [facility] Last Admin: 01/15/18 09:39 Dose: 50 mg Morphine Sulfate (Morphine) 3 mg IVP Q3 PRN PRN Reason: Pain, severe (8-10) Oxycodone HCl (Oxycodone Immediate Release Tab) 10 mg PO Q6 PRN PRN Reason: Pain, moderate (4-7) Last Admin: 01/15/18 07:36 Dose: 10 mg Oxycodone HCl (Oxycontin Extended Release Tab) 20 mg PO Q12H [facility] Stop: 01/16/18 22:01 Last Admin: 01/15/18 09:53 Dose: 20 mg Pantoprazole Sodium (Protonix Ec Tab) 40 mg PO DAILY [facility] Last Admin: 01/15/18 09:39 Dose: 40 mg Rosuvastatin Calcium (Crestor) 10 mg PO HS [facility] Last Admin: 01/14/18 16:58 Dose: Not Given Zolpidem Tartrate (Ambien) 5 mg PO HS PRN PRN Reason: Insomnia Last Admin: 01/14/18 21:49 Dose: 5 mg - Labs Labs: 01/15/18 07:42 01/15/18 07:42 PT 12.9 SECONDS (9.7-12.2) H 01/12/18 07:00 INR 1.2 01/12/18 07:00 Attending/Attestation - Attestation I have personally seen and examined this patient.: Yes I have fully participated in the care of the patient.: Yes I have reviewed all pertinent clinical information, including history, physical exam and plan: Yes Notes (Text): 01/15/18 15:20 Medical attending: Patient was seen and examined by me, reviewed the above note by the resident The patient explained she was still having a lot of pain when I saw her. She says she does ok with the PO medications but when she moves the pain is exacerbated and gets a lot worse. She is currently wearing an immobilizer and she does have sensation on exam and also palpatble pulses in the TP and DP area of foot. Patient is pending OR tommorow as she has a left popliteal pseudoanursym. As mentioned previously she was a transfered from [facility] after having hardware removal and placement of antiobiotic spacer. She remains on IV abx as well. While in [place] she was found to have a pseudoaneursym in the popliteal fossa. thank you Matias Cornell
[2018-01-15] MEDS: Pantoprazole 40 mg EC Tab PO SCH (09:39)
[2018-01-15] MEDS: Lactobacillus Acidophilus 500 MU Cap PO SCH ×2 (09:39→17:28)
[2018-01-15] MEDS: oxyCODONE 10 mg ER Tab (oxyCONTIN) PO SCH ×2 (09:53→21:24)
[2018-01-15] MEDS: Bacitracin 500 Units/gm Oint Foilpak UD TOP SCH ×2 (09:54→18:02)
[2018-01-15 11:08] LABS: HEPATITIS B SURFACE AG Negative (NEGATIVE)
[2018-01-15 11:14] LABS: HEPATITIS A IGM NEGATIVE (NEGATIVE); HEPATITIS B CORE AB NEGATIVE (NEGATIVE)
[2018-01-15 11:26] LABS: HEPATITIS C ANTIBODY NEGATIVE (NEGATIVE)
[2018-01-15] MEDS: DAPTOmycin 500 MG in Sodium Chloride 0.9% 100 ML IV SCH (16:18)
--- NOTE | 2018-01-15 19:33 | CP.PCM.PN ---
Subjective - Date & Time of Evaluation Date of Evaluation: 01/15/18 Time of Evaluation: 15:00 - Subjective Subjective: dictated Objective - Vital Signs/Intake and Output Vital Signs (last 24 hours): Temp Pulse Resp BP Pulse Ox 98.1 F 90 20 106/63 97 01/15/18 15:38 01/15/18 15:38 01/15/18 15:38 01/15/18 17:29 01/15/18 15:38 Intake and Output: 01/15/18 01/16/18 18:59 06:59 Intake Total 1300 Balance 1300 - Medications Medications: Current Medications Amlodipine Besylate (Norvasc) 5 mg PO DAILY [facility] Last Admin: 01/15/18 09:38 Dose: 5 mg Aspirin (Aspirin) 325 mg PO BID [facility] Last Admin: 01/15/18 17:28 Dose: 325 mg Bacitracin (Bacitracin) 1 ea TOP BID [facility] Last Admin: 01/15/18 18:02 Dose: 1 ea Carvedilol (Coreg) 25 mg PO BID [facility] Last Admin: 01/15/18 17:29 Dose: 25 mg Docusate Sodium (Colace) 100 mg PO TID [facility] Last Admin: 01/15/18 17:28 Dose: 100 mg Ferrous Sulfate (Feosol) 325 mg PO TID [facility] Last Admin: 01/15/18 17:28 Dose: 325 mg Daptomycin 500 mg/ Sodium (Chloride) 100 mls @ 100 mls/hr IV Q24H [facility] PRN Reason: Protocol Stop: 01/17/18 14:01 Last Admin: 01/15/18 16:18 Dose: 100 mls/hr Ciprofloxacin (Cipro 400mg/200ml Dsw) 400 mg in 200 mls @ 133 mls/hr IVPB Q12H [facility] PRN Reason: Protocol Last Admin: 01/15/18 14:39 Dose: 133 mls/hr Lactobacillus Acidophilus (Bacid Acidophilus) 1 cap PO BID [facility] Last Admin: 01/15/18 17:28 Dose: 1 cap Losartan Potassium (Cozaar) 50 mg PO DAILY [facility] Last Admin: 01/15/18 09:39 Dose: 50 mg Morphine Sulfate (Morphine) 3 mg IVP Q3 PRN PRN Reason: Pain, severe (8-10) Oxycodone HCl (Oxycodone Immediate Release Tab) 10 mg PO Q6 PRN PRN Reason: Pain, moderate (4-7) Last Admin: 01/15/18 16:16 Dose: 10 mg Oxycodone HCl (Oxycontin Extended Release Tab) 20 mg PO Q12H [facility] Stop: 01/16/18 22:01 Last Admin: 01/15/18 09:53 Dose: 20 mg Pantoprazole Sodium (Protonix Ec Tab) 40 mg PO DAILY [facility] Last Admin: 01/15/18 09:39 Dose: 40 mg Rosuvastatin Calcium (Crestor) 10 mg PO HS [facility] Last Admin: 01/14/18 16:58 Dose: Not Given Zolpidem Tartrate (Ambien) 5 mg PO HS PRN PRN Reason: Insomnia Last Admin: 01/14/18 21:49 Dose: 5 mg - Labs Labs: 01/15/18 07:42 01/15/18 07:42 PT 12.9 SECONDS (9.7-12.2) H 01/12/18 07:00 INR 1.2 01/12/18 07:00
--- NOTE | 2018-01-15 23:25 | PN ---
Copied To: Talha Chatman MD Attending MD: Talha Chatman MD DATE: 01/15/2018 SUBJECTIVE: The patient was saying today that her pain is controlled with the medications. 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 She says the pain is there, but she is tolerating it with the pain medications. Today, they were adequate to keep her pain free. Denies any fever. No nausea, no vomiting. She is also with the spacer in the left knee. PHYSICAL EXAMINATION: VITAL SIGNS: T-max is 98.1, pulse 90, blood pressure 106/63, and respirations are 20. HEENT: Head is atraumatic, normocephalic. NECK: Supple. LUNGS: Clear. HEART: S1, S2 are regular. ABDOMEN: Soft, nontender. No guarding, no rigidity present. EXTREMITIES: Left high has aneurysm, but she has a dressing on the left knee and she has a PICC line in the right arm. LABORATORY DATA: White count is 7.8, hemoglobin 9.6, hematocrit 28.4, and platelet count is adequate 277. BUN is 8, creatinine is 0.6. MEDICATIONS: She is on Cipro, and daptomycin. ASSESSMENT AND PLAN: I am not sure if she would be going to rehab, but her cultures were noted. She had Acinetobacter, which was Cipro sensitive, hence we have put her on Cipro and she was on daptomycin from the other hospital, so we left that on. We will follow. 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 Surgery is seen. Talha Chatman MD
[2018-01-16] MEDS: Ciprofloxacin 400mg/200ml D5W 400 MG/200 ML BAG IVPB SCH ×2 (01:20→17:47)
[2018-01-16] MEDS: Morphine 4 MG/ML VIAL IVP PRN (07:01)
[2018-01-16 07:28] LABS: BASO # 0.1 K/uL (0.0-0.2); BASO % 0.7 % (0.0-2.0); EOS # 0.3 K/uL (0.0-0.7); EOS % 3.7 % (0.0-4.0); HEMOGLOBIN 9.9 g/dL (11.0-16.0); LYMPH # 2.2 K/uL (1.0-4.3); LYMPH % 27.7 % (20.0-40.0); MEAN CELL VOLUME 85.3 fL (81.0-99.0); MEAN PLATELET VOLUME 9.8 fL (7.2-11.7); MONO # 0.9 K/uL (0.0-0.8); MONO % 11.5 % (0.0-10.0); NEUT # 4.5 K/uL (1.8-7.0); NEUT % 56.4 % (50.0-75.0); RBC 3.4 Mil/uL (3.80-5.20); RED CELL DISTRIBUTION WIDTH 15.2 % (11.5-14.5); WHITE BLOOD COUNT 7.9 K/uL (4.8-10.8)
[2018-01-16 08:11] LABS: ALB/GLOB RATIO 1.4 (1.0-2.1); ALBUMIN 3.8 g/dL (3.5-5.0); ALT/SGPT 68 U/L (9-52); AST/SGOT 70 U/L (14-36); BLOOD UREA NITROGEN 8 mg/dL (7-17); CALCIUM 9.1 mg/dl (8.6-10.4); GFR NON-AFRICAN AMERICAN > 60
[2018-01-16] MEDS ORDERED: Lidocaine 2% MPF (5 ml) Inj ONE ×2 (10:01→10:08)
[2018-01-16] MEDS ORDERED: Iodixanol 320 MG/ML 200 ML BOTTLE IV ONE (10:02)
[2018-01-16] MEDS ORDERED: Iodixanol 320 MG/ML 100 ML BOTTLE IV ONE ×3 (10:02→12:52)
[2018-01-16] MEDS ORDERED: Nitroglycerin 50mg in D5W 50 MG/250 ML BOTTLE IV ONE (10:02)
[2018-01-16] MEDS: Lactobacillus Acidophilus 500 MU Cap PO SCH ×2 (10:06→17:46)
[2018-01-16] MEDS: Bacitracin 500 Units/gm Oint Foilpak UD TOP SCH ×2 (10:07→17:30)
[2018-01-16] MEDS: oxyCODONE 10 mg ER Tab (oxyCONTIN) PO SCH ×3 (10:09→22:09)
[2018-01-16] MEDS: Pantoprazole 40 mg EC Tab PO SCH (10:10)
[2018-01-16] MEDS ORDERED: Midazolam 2 MG/2 ML VIAL ONE ×2 (10:38→11:54)
[2018-01-16] MEDS ORDERED: Thrombin Topical 5,000 Int Units Spray Kit TOP ONE (10:45)
[2018-01-16] MEDS ORDERED: Thrombin Topical 5,000 Int Units Spray Kit TOP SCH (10:45)
--- NOTE | 2018-01-16 13:08 | PCM.SURG1 ---
Surgeon's Initial Post Op Note - Surgeon's Notes Surgeon: mignon [employer] Instructor: 0 Type of Anesthesia: IV Sedation Anesthesia Administered By: gavi Pre-Operative Diagnosis: poplileal artery aneurysm Operative Findings: successful injection of aneurysm but with some leakage. required 6x5 viabahn. and thrombectomy and balloon angioplasty of all 3 tibial vessels. perclose tight groin Post-Operative Diagnosis: same Operation Performed: selective angiogram of left popliteal artery via rught side. usltrasound guided thrombin injection of PSA popliteal. 6x5 via bahn popliteal stent. angiojet mechanical thrombectomy of all three tibial vessels and balloon angioplasty using a 2 mm balloon. perclose right Specimen/Specimens Removed: 0 Estimated Blood Loss: EBL {In ML}: 50 Blood Products Given: N/A Drains Used: No Drains Post-Op Condition: Good Date of Surgery/Procedure: 01/16/18 Time of Surgery/Procedure: 13:12
[2018-01-16] MEDS ORDERED: Heparin25000 units/250ml 1/2NS 25,000 UNITS/250 ML BAG IV PRN (13:14)
[2018-01-16] MEDS: Dextrose 5%/0.45% NS 1,000 ML IV SCH ×2 (16:38→23:28)
[2018-01-16] MEDS: DAPTOmycin 500 MG in Sodium Chloride 0.9% 100 ML IV SCH (17:23)
--- NOTE | 2018-01-16 17:45 | CP.PCM.PN ---
Subjective - Date & Time of Evaluation Date of Evaluation: 01/16/18 Time of Evaluation: 17:20 - Subjective Subjective: Patient is currently in ICU 14. She is not in any acute distress, AAO x3. She says the pain is controlled at this time. She is S/P angiogram of left popliteal artery, she had a popliteal stent and angiojet mechanical thrombectomy and ballon angioplasty. As mentioned previously she was a transferred from [facility] on 01/12 after having orthopedic hardware removal and placement of antibiotic spacer in the left knee. She remains on IV abx Ciprofloxacin and Daptomycin. While in [place] she was found to have a pseudoaneursym in the popliteal fossa and transferred to [facility]. Objective - Vital Signs/Intake and Output Vital Signs (last 24 hours): Temp Pulse Resp BP Pulse Ox 98.2 F 80 20 142/76 100 01/16/18 08:30 01/16/18 08:30 01/16/18 08:30 01/16/18 17:31 01/16/18 08:30 Intake and Output: 01/16/18 01/16/18 06:59 18:59 Intake Total 0 Balance 0 - Medications Medications: Current Medications Amlodipine Besylate (Norvasc) 5 mg PO DAILY [facility] Last Admin: 01/16/18 14:20 Dose: 5 mg Aspirin (Aspirin) 325 mg PO BID [facility] Last Admin: 01/16/18 17:31 Dose: 325 mg Bacitracin (Bacitracin) 1 ea TOP BID [facility] Last Admin: 01/16/18 17:30 Dose: 1 ea Carvedilol (Coreg) 25 mg PO BID [facility] Last Admin: 01/16/18 17:31 Dose: 25 mg Clopidogrel Bisulfate (Plavix) 75 mg PO DAILY [facility] Docusate Sodium (Colace) 100 mg PO TID [facility] Last Admin: 01/16/18 17:31 Dose: 100 mg Ferrous Sulfate (Feosol) 325 mg PO TID [facility] Last Admin: 01/16/18 17:31 Dose: 325 mg Daptomycin 500 mg/ Sodium (Chloride) 100 mls @ 100 mls/hr IV Q24H [facility] PRN Reason: Protocol Stop: 01/17/18 14:01 Last Admin: 01/16/18 17:23 Dose: 100 mls/hr Ciprofloxacin (Cipro 400mg/200ml Dsw) 400 mg in 200 mls @ 133 mls/hr IVPB Q12H [facility] PRN Reason: Protocol Last Admin: 01/16/18 01:20 Dose: 133 mls/hr Heparin Sodium/Sodium Chloride (Heparin 71721 Units/250ml 1/2 Normal Saline) 25 ,000 units in 250 mls @ 14.288 mls/hr IV .[id number] PRN; Protocol; 18 UNITS/KG/HR PRN Reason: ADJUST RATE PER PROTOCOL Last Titration: 01/16/18 17:11 Dose: 0 units/kg/hr, 0 mls/hr Dextrose/Sodium Chloride (Dextrose 5%/0.45% Ns 1000 Ml) 1,000 mls @ 100 mls/hr IV .Q10H [facility] Last Admin: 01/16/18 16:38 Dose: 100 mls/hr Lactobacillus Acidophilus (Bacid Acidophilus) 1 cap PO BID [facility] Last Admin: 01/16/18 10:06 Dose: Not Given Losartan Potassium (Cozaar) 50 mg PO DAILY [facility] Last Admin: 01/16/18 14:20 Dose: 50 mg Morphine Sulfate (Morphine) 3 mg IVP Q3 PRN PRN Reason: Pain, severe (8-10) Last Admin: 01/16/18 07:01 Dose: 3 mg Oxycodone HCl (Oxycodone Immediate Release Tab) 10 mg PO Q6 PRN PRN Reason: Pain, moderate (4-7) Last Admin: 01/15/18 16:16 Dose: 10 mg Oxycodone HCl (Oxycontin Extended Release Tab) 20 mg PO Q12H [facility] Stop: 01/16/18 22:01 Last Admin: 01/16/18 14:18 Dose: 20 mg Pantoprazole Sodium (Protonix Ec Tab) 40 mg PO DAILY [facility] Last Admin: 01/16/18 10:10 Dose: Not Given Rosuvastatin Calcium (Crestor) 10 mg PO HS [facility] Last Admin: 01/15/18 21:24 Dose: 10 mg Zolpidem Tartrate (Ambien) 5 mg PO HS PRN PRN Reason: Insomnia Last Admin: 01/15/18 23:53 Dose: 5 mg - Labs Labs: 01/16/18 07:07 01/16/18 07:07 PT 12.9 SECONDS (9.7-12.2) H 01/12/18 07:00 INR 1.2 01/12/18 07:00 APTT 131 SECONDS (21-34) H* 01/16/18 16:19 - Constitutional Appears: Well, No Acute Distress - Head Exam Head Exam: ATRAUMATIC, NORMAL INSPECTION - Eye Exam Eye Exam: EOMI, Normal appearance - ENT Exam ENT Exam: Mucous Membranes Moist - Respiratory Exam Respiratory Exam: Clear to Ausculation Bilateral, NORMAL BREATHING PATTERN - Cardiovascular Exam Cardiovascular Exam: REGULAR RHYTHM - GI/Abdominal Exam GI & Abdominal Exam: Soft, Normal Bowel Sounds. absent: Guarding, Rigid, Tenderness - Extremities Exam Additional comments: The right femoral area look clean, no bleeding, gauze is intact The left leg is in brace, she has a strong TP pulse, warm feet. Able to move toes - Neurological Exam Neurological Exam: Alert, Awake, Oriented x3 Neuro motor strength exam: Left Upper Extremity: 5, Right Upper Extremity: 5 - Psychiatric Exam Psychiatric exam: Normal Affect, Normal Mood - Skin Skin Exam: Normal Color, Warm Assessment and Plan - Assessment and Plan (Free Text) Assessment: Left Popliteal Aneurysm Vascular Surgery Consult, Dr. Caceres 01/16: Patient is She is S/P angiogram of left popliteal artery, she had a popliteal stent and angiojet mechanical thrombectomy and ballon angioplasty. The patient had found in [place] a bilobed popliteal artery aneurysm -Larges sac 2.7 x 2.2 cm, smaller sac 2x1.5 cm. Patent popliteal artery. For pain the patient is on long acting Oxycontin as well as immediate release and also morphine IV as well Infected Left Knee Hardware ID consulted, Dr. Chatman 01/16: Patient remains on Daptomycin as well as Ciprofloxacin. WBC stable, afebrile at this time. Patient was being treated with Daptomycin over at [facility] prior to being transferred to [facility]. At [place] she had orthopedic left knee removal of hardware, I&D and placement of antibiotic spacer on 01/05/18. POD#9 - per ID, ABx spacer to remain x8 weeks Medications: * Acetaminophen 650mg PO q6h prn * Aspirin 325mg PO BID * Bacitracin 1ea TOP BID * Oxycodone 20mg po q12 dano, oxycodone 10mg po q6 prn, morphine 2mg IV PRN * Colace 100mg PO TID * Naproxen 500mg PO BID * Ciprofloxacin 400mg IVPB q12 * Daptomycin (completion date 01/17) Hypertension 01/16: Stable in the 140 systolic range. Continue medication regiment at [facility]: * Amlodipine 5mg PO daily * Carvedilol 25mg PO BID * Losartan 50mg PO daily Hyperlipidemia Continue medication regiment at [facility]: * Crestor 10mg PO daily Prophylactic Care VTE ppx - anticoag contraindicated 2/2 pre-op procedure, pending vascular surgery GI ppx - Protonix 40mg PO daily Ferrous Sulfate 325mg PO TID - continued home med Ambien 5mg PO HS prn - continued home med
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
--- NOTE | 2018-01-16 18:43 | CP.PCM.PCO ---
Physician Communication Note - Physician Communication Note Physician Communication Note: post-op check: no complaints, foot warm, DP/PT dopplerable w/ signal
[2018-01-16] MEDS: oxyCODONE 5 mg Immediate Release Tab PO PRN (18:44)
--- NOTE | 2018-01-16 19:06 | CP.PCM.PN ---
<Martin Darden - Last Filed: 01/17/18 09:49> Subjective - Date & Time of Evaluation Date of Evaluation: 01/16/18 Time of Evaluation: 19:03 - Subjective Subjective: PGY-[address] Echavarria Patient seen and examined at bedside. Patient has no acute complaints overnight. Patient slept well, tolerating PO meals. Patient went today for popliteal aneurysm repair. Plan to discharge patient tomorrow if surgery goes well and no new complications arise. Objective - Vital Signs/Intake and Output Vital Signs (last 24 hours): Temp Pulse Resp BP Pulse Ox 97.6 F 80 17 124/104 H 100 01/16/18 16:00 01/16/18 18:00 01/16/18 18:00 01/16/18 17:37 01/16/18 18:00 Intake and Output: 01/16/18 01/17/18 18:59 06:59 Intake Total 915 Output Total 500 Balance 415 - Medications Medications: Current Medications Amlodipine Besylate (Norvasc) 5 mg PO DAILY [facility] Last Admin: 01/16/18 14:20 Dose: 5 mg Aspirin (Aspirin) 325 mg PO BID [facility] Last Admin: 01/16/18 17:31 Dose: 325 mg Bacitracin (Bacitracin) 1 ea TOP BID [facility] Last Admin: 01/16/18 17:30 Dose: 1 ea Carvedilol (Coreg) 25 mg PO BID [facility] Last Admin: 01/16/18 17:31 Dose: 25 mg Clopidogrel Bisulfate (Plavix) 75 mg PO DAILY [facility] Docusate Sodium (Colace) 100 mg PO TID [facility] Last Admin: 01/16/18 17:31 Dose: 100 mg Ferrous Sulfate (Feosol) 325 mg PO TID [facility] Last Admin: 01/16/18 17:31 Dose: 325 mg Daptomycin 500 mg/ Sodium (Chloride) 100 mls @ 100 mls/hr IV Q24H [facility] PRN Reason: Protocol Stop: 01/17/18 14:01 Last Admin: 01/16/18 17:23 Dose: 100 mls/hr Ciprofloxacin (Cipro 400mg/200ml Dsw) 400 mg in 200 mls @ 133 mls/hr IVPB Q12H [facility] PRN Reason: Protocol Last Admin: 01/16/18 17:47 Dose: 133 mls/hr Heparin Sodium/Sodium Chloride (Heparin 65861 Units/250ml 1/2 Normal Saline) 25 ,000 units in 250 mls @ 14.288 mls/hr IV .[id number] PRN; Protocol; 18 UNITS/KG/HR PRN Reason: ADJUST RATE PER PROTOCOL Last Titration: 01/16/18 18:32 Dose: 15 units/kg/hr, 11.907 mls/hr Dextrose/Sodium Chloride (Dextrose 5%/0.45% Ns 1000 Ml) 1,000 mls @ 100 mls/hr IV .Q10H [facility] Last Admin: 01/16/18 16:38 Dose: 100 mls/hr Lactobacillus Acidophilus (Bacid Acidophilus) 1 cap PO BID [facility] Last Admin: 01/16/18 17:46 Dose: 1 cap Losartan Potassium (Cozaar) 50 mg PO DAILY [facility] Last Admin: 01/16/18 14:20 Dose: 50 mg Morphine Sulfate (Morphine) 3 mg IVP Q3 PRN PRN Reason: Pain, severe (8-10) Last Admin: 01/16/18 07:01 Dose: 3 mg Oxycodone HCl (Oxycodone Immediate Release Tab) 10 mg PO Q6 PRN PRN Reason: Pain, moderate (4-7) Last Admin: 01/16/18 18:44 Dose: 10 mg Oxycodone HCl (Oxycontin Extended Release Tab) 20 mg PO Q12H [facility] Stop: 01/16/18 22:01 Last Admin: 01/16/18 14:18 Dose: 20 mg Pantoprazole Sodium (Protonix Ec Tab) 40 mg PO DAILY [facility] Last Admin: 01/16/18 10:10 Dose: Not Given Rosuvastatin Calcium (Crestor) 10 mg PO HS [facility] Last Admin: 01/15/18 21:24 Dose: 10 mg Zolpidem Tartrate (Ambien) 5 mg PO HS PRN PRN Reason: Insomnia Last Admin: 01/15/18 23:53 Dose: 5 mg - Labs Labs: 01/16/18 07:07 01/16/18 07:07 PT 12.9 SECONDS (9.7-12.2) H 01/12/18 07:00 INR 1.2 01/12/18 07:00 APTT 131 SECONDS (21-34) H* 01/16/18 16:19 - Head Exam Head Exam: ATRAUMATIC, NORMAL INSPECTION - Eye Exam Eye Exam: EOMI, Normal appearance - ENT Exam ENT Exam: Mucous Membranes Moist, Normal Exam - Respiratory Exam Respiratory Exam: Clear to Ausculation Bilateral, NORMAL BREATHING PATTERN - GI/Abdominal Exam GI & Abdominal Exam: Soft, Normal Bowel Sounds. absent: Tenderness - Extremities Exam Extremities Exam: Full ROM, Normal Capillary Refill. absent: Pedal Edema Additional comments: +L knee moderately painful to palpation, strong pulse appreciated at site of popliteal artery aneurysm - Neurological Exam Neurological Exam: Alert, Awake, CN II-XII Intact, Normal Gait, Oriented x3 - Skin Skin Exam: Dry, Intact, Normal Color, Warm Assessment and Plan - Assessment and Plan (Free Text) Assessment: Left Popliteal Aneurysm Vascular Surgery Consult, Dr. Caceres 01/16: Patient is She is S/P angiogram of left popliteal artery, she had a popliteal stent and angiojet mechanical thrombectomy and ballon angioplasty. The patient had found in [place] a bilobed popliteal artery aneurysm -Largest sac 2.7 x 2.2 cm, smaller sac 2x1.5 cm. Patent popliteal artery. For pain the patient is on long acting Oxycontin as well as immediate release and also morphine IV as well Patient went for aneurysm repair today - awaiting surgery recs following the procedure Infected Left Knee Hardware ID consulted, Dr. Chatman 01/16: Patient remains on Daptomycin as well as Ciprofloxacin. WBC stable, afebrile at this time. Patient was being treated with Daptomycin over at [facility] prior to being transferred to [facility]. At [place] she had orthopedic left knee removal of hardware, I&D and placement of antibiotic spacer on 01/05/18. POD#9 - per ID, ABx spacer to remain x8 weeks Medications: * Acetaminophen 650mg PO q6h prn * Aspirin 325mg PO BID * Bacitracin 1ea TOP BID * Oxycodone 20mg po q12 dano, oxycodone 10mg po q6 prn, morphine 2mg IV PRN * Colace 100mg PO TID * Naproxen 500mg PO BID * Ciprofloxacin 400mg IVPB q12 * Daptomycin (completion date 01/17) Hypertension 01/16: Stable in the 140 systolic range. Continue medication regiment at [facility]: * Amlodipine 5mg PO daily * Carvedilol 25mg PO BID * Losartan 50mg PO daily Hyperlipidemia Continue medication regiment at [facility]: * Crestor 10mg PO daily Prophylactic Care VTE ppx - anticoag contraindicated 2/2 pre-op procedure, pending vascular surgery GI ppx - Protonix 40mg PO daily Ferrous Sulfate 325mg PO TID - continued home med Ambien 5mg PO HS prn - continued home med <Matias Cornell H - Last Filed: 01/17/18 17:59> Objective - Vital Signs/Intake and Output Vital Signs (last 24 hours): Temp Pulse Resp BP Pulse Ox 98.9 F 76 15 142/81 98 01/17/18 12:00 01/17/18 12:07 01/17/18 12:07 01/17/18 12:07 01/17/18 12:07 Intake and Output: 01/17/18 01/17/18 06:59 18:59 Intake Total 1882.5 578.5 Output Total 1500 400 Balance 382.5 178.5 - Medications Medications: Current Medications Amlodipine Besylate (Norvasc) 5 mg PO DAILY [facility] Last Admin: 01/17/18 10:10 Dose: 5 mg Aspirin (Aspirin) 325 mg PO BID [facility] Last Admin: 01/17/18 10:09 Dose: 325 mg Bacitracin (Bacitracin) 1 ea TOP BID [facility] Last Admin: 01/17/18 10:09 Dose: 1 ea Carvedilol (Coreg) 25 mg PO BID [facility] Last Admin: 01/17/18 10:09 Dose: 25 mg Clopidogrel Bisulfate (Plavix) 75 mg PO DAILY [facility] Last Admin: 01/17/18 10:09 Dose: 75 mg Docusate Sodium (Colace) 100 mg PO TID [facility] Last Admin: 01/17/18 13:44 Dose: 100 mg Ferrous Sulfate (Feosol) 325 mg PO TID [facility] Last Admin: 01/17/18 13:44 Dose: 325 mg Ciprofloxacin (Cipro 400mg/200ml Dsw) 400 mg in 200 mls @ 133 mls/hr IVPB Q12H [facility] PRN Reason: Protocol Last Admin: 01/17/18 13:44 Dose: 133 mls/hr Lactobacillus Acidophilus (Bacid Acidophilus) 1 cap PO BID [facility] Last Admin: 01/17/18 11:00 Dose: 1 cap Losartan Potassium (Cozaar) 50 mg PO DAILY [facility] Last Admin: 01/17/18 10:09 Dose: 50 mg Morphine Sulfate (Morphine) 3 mg IVP Q3 PRN PRN Reason: Pain, severe (8-10) Last Admin: 01/16/18 07:01 Dose: 3 mg Oxycodone HCl (Oxycodone Immediate Release Tab) 10 mg PO Q6 PRN PRN Reason: Pain, moderate (4-7) Last Admin: 01/17/18 14:23 Dose: 10 mg Pantoprazole Sodium (Protonix Ec Tab) 40 mg PO DAILY [facility] Last Admin: 01/17/18 10:09 Dose: 40 mg Rosuvastatin Calcium (Crestor) 10 mg PO HS [facility] Last Admin: 01/16/18 22:09 Dose: 10 mg Zolpidem Tartrate (Ambien) 5 mg PO HS PRN PRN Reason: Insomnia Last Admin: 01/17/18 00:28 Dose: 5 mg - Labs Labs: 01/17/18 06:41 01/17/18 06:41 PT 12.9 SECONDS (9.7-12.2) H 01/12/18 07:00 INR 1.2 01/12/18 07:00 APTT 166 SECONDS (21-34) H* D 01/17/18 02:21 Attending/Attestation - Attestation I have personally seen and examined this patient.: Yes I have fully participated in the care of the patient.: Yes I have reviewed all pertinent clinical information, including history, physical exam and plan: Yes Notes (Text): 01/17/18 17:59 Medical attending: Patient was seen and examined by me, agrees the above note by medical claims specialist. As mentioned previously this is a patient who is status post angiogram for left popliteal artery aneursym. She had stenting and balloon angioplasty done When I saw the patient earlier in the morning she reported that the pain is controlled when I rounded medical residents again to see the patient she reported that the pain was quite severe. She was due for pain medication. Other than this she didn't have any events overnight denied having fevers, denied shortness of breath, denied chest pain. We've consulted the orthopedic service to see the patient as well the same service that saw the patient in [place] prior to being transferred over to [facility]. She remains on the IV Cipro and the IV daptomycin, from what I understand the daptomycin will be stopped today. So far at least here [facility] she has not had a positive blood culture in her white blood cell counts have been stable thank you Matias Cornell
--- NOTE | 2018-01-16 21:49 | CP.PCM.PN ---
Subjective - Date & Time of Evaluation Date of Evaluation: 01/16/18 Time of Evaluation: 16:00 - Subjective Subjective: dictated Objective - Vital Signs/Intake and Output Vital Signs (last 24 hours): Temp Pulse Resp BP Pulse Ox 98 F 66 14 144/78 99 01/16/18 20:00 01/16/18 21:10 01/16/18 21:10 01/16/18 20:36 01/16/18 21:10 Intake and Output: 01/16/18 01/17/18 18:59 06:59 Intake Total 1027 456 Output Total 500 0 Balance 527 456 - Medications Medications: Current Medications Amlodipine Besylate (Norvasc) 5 mg PO DAILY [facility] Last Admin: 01/16/18 14:20 Dose: 5 mg Aspirin (Aspirin) 325 mg PO BID [facility] Last Admin: 01/16/18 17:31 Dose: 325 mg Bacitracin (Bacitracin) 1 ea TOP BID [facility] Last Admin: 01/16/18 17:30 Dose: 1 ea Carvedilol (Coreg) 25 mg PO BID [facility] Last Admin: 01/16/18 17:31 Dose: 25 mg Clopidogrel Bisulfate (Plavix) 75 mg PO DAILY [facility] Docusate Sodium (Colace) 100 mg PO TID [facility] Last Admin: 01/16/18 17:31 Dose: 100 mg Ferrous Sulfate (Feosol) 325 mg PO TID [facility] Last Admin: 01/16/18 19:18 Dose: Not Given Daptomycin 500 mg/ Sodium (Chloride) 100 mls @ 100 mls/hr IV Q24H [facility] PRN Reason: Protocol Stop: 01/17/18 14:01 Last Admin: 01/16/18 17:23 Dose: 100 mls/hr Ciprofloxacin (Cipro 400mg/200ml Dsw) 400 mg in 200 mls @ 133 mls/hr IVPB Q12H [facility] PRN Reason: Protocol Last Admin: 01/16/18 17:47 Dose: 133 mls/hr Heparin Sodium/Sodium Chloride (Heparin 37480 Units/250ml 1/2 Normal Saline) 25 ,000 units in 250 mls @ 14.288 mls/hr IV .[id number] PRN; Protocol; 18 UNITS/KG/HR PRN Reason: ADJUST RATE PER PROTOCOL Last Titration: 01/16/18 18:32 Dose: 15 units/kg/hr, 11.907 mls/hr Dextrose/Sodium Chloride (Dextrose 5%/0.45% Ns 1000 Ml) 1,000 mls @ 100 mls/hr IV .Q10H [facility] Last Admin: 01/16/18 16:38 Dose: 100 mls/hr Lactobacillus Acidophilus (Bacid Acidophilus) 1 cap PO BID [facility] Last Admin: 01/16/18 17:46 Dose: 1 cap Losartan Potassium (Cozaar) 50 mg PO DAILY [facility] Last Admin: 01/16/18 14:20 Dose: 50 mg Morphine Sulfate (Morphine) 3 mg IVP Q3 PRN PRN Reason: Pain, severe (8-10) Last Admin: 01/16/18 07:01 Dose: 3 mg Oxycodone HCl (Oxycodone Immediate Release Tab) 10 mg PO Q6 PRN PRN Reason: Pain, moderate (4-7) Last Admin: 01/16/18 18:44 Dose: 10 mg Oxycodone HCl (Oxycontin Extended Release Tab) 20 mg PO Q12H [facility] Stop: 01/16/18 22:01 Last Admin: 01/16/18 14:18 Dose: 20 mg Pantoprazole Sodium (Protonix Ec Tab) 40 mg PO DAILY [facility] Last Admin: 01/16/18 10:10 Dose: Not Given Rosuvastatin Calcium (Crestor) 10 mg PO HS [facility] Last Admin: 01/15/18 21:24 Dose: 10 mg Zolpidem Tartrate (Ambien) 5 mg PO HS PRN PRN Reason: Insomnia Last Admin: 01/15/18 23:53 Dose: 5 mg - Labs Labs: 01/16/18 07:07 01/16/18 07:07 PT 12.9 SECONDS (9.7-12.2) H 01/12/18 07:00 INR 1.2 01/12/18 07:00 APTT 131 SECONDS (21-34) H* 01/16/18 16:19
[2018-01-17] MEDS: Ciprofloxacin 400mg/200ml D5W 400 MG/200 ML BAG IVPB SCH ×2 (01:29→13:44)
--- NOTE | 2018-01-17 02:57 | PN ---
Copied To: Talha Chatman MD Attending MD: Talha Chatman MD DATE: 01/16/2018 SUBJECTIVE: The patient was in ICU post-surgical procedure. She called me and she was very awake. She said she was feeling little better. She says it was a lengthy procedure. She has this soft splint on the left leg, so that she could not move her leg. She denies any other complaints at this time. She is on heparin drip. I left her on the daptomycin and Cipro for her left knee problem, and she is on IV heparin at this time and heparin at this time. The procedure that was done was needle placement angiogram. PHYSICAL EXAMINATION: VITAL SIGNS: T-max is 98, pulse 66, blood pressure 144/78, respirations are 14. GENERAL: The patient is a awake and alert. HEENT: Head is atraumatic. NECK: Supple. LUNGS: Clear. No crackles or rales present. HEART: S1, S2 are regular. ABDOMEN: Soft, nontender. No guarding, no rigidity present. EXTREMITIES: Left leg had a splint on it, and right leg is unremarkable. ASSESSMENT AND PLAN: The patient is being monitored in the intensive care unit as she had a pseudoaneurysm. She went to the operating room for the same. We will follow. Continue antibiotics as she had a total knee replacement and that got infected. She has a spacer now and is on intravenous antibiotics via peripherally inserted central catheter line and will need them for six weeks. Talha Chatman MD
[2018-01-17] MEDS: Dextrose 5%/0.45% NS 1,000 ML IV SCH (06:36)
[2018-01-17 06:49] LABS: BASO # 0.1 K/uL (0.0-0.2); BASO % 0.7 % (0.0-2.0); EOS # 0.3 K/uL (0.0-0.7); EOS % 3.3 % (0.0-4.0); HEMOGLOBIN 9.8 g/dL (11.0-16.0); LYMPH # 2.3 K/uL (1.0-4.3); LYMPH % 24.4 % (20.0-40.0); MEAN CELL VOLUME 84.8 fL (81.0-99.0); MEAN CORPUSCULAR HEMOGLOBIN 28.5 pg (27.0-31.0); MEAN CORPUSCULAR HGB CONC 33.6 g/dL (33.0-37.0); MEAN PLATELET VOLUME 9.8 fL (7.2-11.7); MONO # 1.1 K/uL (0.0-0.8); NEUT # 5.7 K/uL (1.8-7.0); NEUT % 59.6 % (50.0-75.0); NRBC % 0.1 % (0.0-2.0); RBC 3.43 Mil/uL (3.80-5.20); RED CELL DISTRIBUTION WIDTH 15.3 % (11.5-14.5); WHITE BLOOD COUNT 9.6 K/uL (4.8-10.8)
[2018-01-17 07:05] LABS: ALB/GLOB RATIO 1.4 (1.0-2.1); ALBUMIN 3.9 g/dL (3.5-5.0); ALT/SGPT 72 U/L (9-52); AST/SGOT 67 U/L (14-36); BLOOD UREA NITROGEN 6 mg/dL (7-17); CALCIUM 9.2 mg/dl (8.6-10.4); GFR NON-AFRICAN AMERICAN > 60
[2018-01-17] MEDS: oxyCODONE 5 mg Immediate Release Tab PO PRN ×3 (08:07→21:10)
[2018-01-17] MEDS: Bacitracin 500 Units/gm Oint Foilpak UD TOP SCH ×2 (10:09→18:08)
[2018-01-17] MEDS: Pantoprazole 40 mg EC Tab PO SCH (10:09)
[2018-01-17] MEDS: Lactobacillus Acidophilus 500 MU Cap PO SCH ×2 (11:00→18:14)
--- NOTE | 2018-01-17 13:00 | CP.PCM.PN ---
Subjective - Date & Time of Evaluation Date of Evaluation: 01/17/18 Time of Evaluation: 11:00 - Subjective Subjective: Patient states the pain in the back of her knee is improved. She is still having some pain in her leg and ankle, but mild. No new complaints. Objective - Vital Signs/Intake and Output Vital Signs (last 24 hours): Temp Pulse Resp BP Pulse Ox 98.9 F 76 15 142/81 98 01/17/18 12:00 01/17/18 12:07 01/17/18 12:07 01/17/18 12:07 01/17/18 12:07 Intake and Output: 01/17/18 01/17/18 06:59 18:59 Intake Total 1882.5 578.5 Output Total 1500 400 Balance 382.5 178.5 - Medications Medications: Current Medications Amlodipine Besylate (Norvasc) 5 mg PO DAILY [facility] Last Admin: 01/17/18 10:10 Dose: 5 mg Aspirin (Aspirin) 325 mg PO BID [facility] Last Admin: 01/17/18 10:09 Dose: 325 mg Bacitracin (Bacitracin) 1 ea TOP BID [facility] Last Admin: 01/17/18 10:09 Dose: 1 ea Carvedilol (Coreg) 25 mg PO BID [facility] Last Admin: 01/17/18 10:09 Dose: 25 mg Clopidogrel Bisulfate (Plavix) 75 mg PO DAILY [facility] Last Admin: 01/17/18 10:09 Dose: 75 mg Docusate Sodium (Colace) 100 mg PO TID [facility] Last Admin: 01/17/18 10:09 Dose: 100 mg Ferrous Sulfate (Feosol) 325 mg PO TID [facility] Last Admin: 01/17/18 10:10 Dose: 325 mg Daptomycin 500 mg/ Sodium (Chloride) 100 mls @ 100 mls/hr IV Q24H [facility] PRN Reason: Protocol Stop: 01/17/18 14:01 Last Admin: 01/16/18 17:23 Dose: 100 mls/hr Ciprofloxacin (Cipro 400mg/200ml Dsw) 400 mg in 200 mls @ 133 mls/hr IVPB Q12H [facility] PRN Reason: Protocol Last Admin: 01/17/18 01:29 Dose: 133 mls/hr Lactobacillus Acidophilus (Bacid Acidophilus) 1 cap PO BID [facility] Last Admin: 01/17/18 11:00 Dose: 1 cap Losartan Potassium (Cozaar) 50 mg PO DAILY [facility] Last Admin: 01/17/18 10:09 Dose: 50 mg Morphine Sulfate (Morphine) 3 mg IVP Q3 PRN PRN Reason: Pain, severe (8-10) Last Admin: 01/16/18 07:01 Dose: 3 mg Oxycodone HCl (Oxycodone Immediate Release Tab) 10 mg PO Q6 PRN PRN Reason: Pain, moderate (4-7) Last Admin: 01/17/18 08:07 Dose: 10 mg Pantoprazole Sodium (Protonix Ec Tab) 40 mg PO DAILY [facility] Last Admin: 01/17/18 10:09 Dose: 40 mg Rosuvastatin Calcium (Crestor) 10 mg PO HS [facility] Last Admin: 01/16/18 22:09 Dose: 10 mg Zolpidem Tartrate (Ambien) 5 mg PO HS PRN PRN Reason: Insomnia Last Admin: 01/17/18 00:28 Dose: 5 mg - Labs Labs: 01/17/18 06:41 01/17/18 06:41 PT 12.9 SECONDS (9.7-12.2) H 01/12/18 07:00 INR 1.2 01/12/18 07:00 APTT 166 SECONDS (21-34) H* D 01/17/18 02:21 - Extremities Exam Additional comments: left knee: incision intact, dry, healing well, no erythema, dressing changed. 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 Tamayo, aware of above and recent procedure, notes appreciated, agrees with above Status: Acute
--- NOTE | 2018-01-17 13:07 | VASCLAB ---
Date of service: 01/16/2018 PROCEDURE: Thrombin injection popliteal artery pseudoaneurysm. HISTORY: Ultrasound guidance for thrombin injection COMPARISON: None available. TECHNIQUE: Ultrasound Guidance FINDINGS: Left popliteal artery pseudoaneurysm thrombin injection. Bilobed complex popliteal artery pseudoaneurysm is identified. After the patient's popliteal fossa was prepped and draped in the usual sterile fashion and skin anesthetized with 2 percent lidocaine, 21 gauge needle was advanced under ultrasound guidance into most superficial pseudoaneurysm sac. Upon confirmation of needle position, thrombin was injected slowly until pseudoaneurysm was thrombosed. Concentration of thrombus 300 units/cc. A total of 1.5 cubic centimeters of thrombin was injected. IMPRESSION: Ultrasound guidance was provided to Dr. Barnes for thrombin injection.
--- NOTE | 2018-01-17 15:28 | CP.PCM.PN ---
Subjective - Date & Time of Evaluation Date of Evaluation: 01/17/18 Time of Evaluation: 02:30 - Subjective Subjective: Patient seen and examined at bedside. No acute events overnight. Patient admitted to feeling much less pain/discomfort in the left popliteal region. Patient denied fever, nausea, vomiting, chest pain, shortness of breath, and lower extremity pain and swelling. Objective - Vital Signs/Intake and Output Vital Signs (last 24 hours): Temp Pulse Resp BP Pulse Ox 98.9 F 76 15 142/81 98 01/17/18 12:00 01/17/18 12:07 01/17/18 12:07 01/17/18 12:07 01/17/18 12:07 Intake and Output: 01/17/18 01/17/18 06:59 18:59 Intake Total 1882.5 578.5 Output Total 1500 400 Balance 382.5 178.5 - Medications Medications: Current Medications Amlodipine Besylate (Norvasc) 5 mg PO DAILY [facility] Last Admin: 01/17/18 10:10 Dose: 5 mg Aspirin (Aspirin) 325 mg PO BID [facility] Last Admin: 01/17/18 10:09 Dose: 325 mg Bacitracin (Bacitracin) 1 ea TOP BID [facility] Last Admin: 01/17/18 10:09 Dose: 1 ea Carvedilol (Coreg) 25 mg PO BID [facility] Last Admin: 01/17/18 10:09 Dose: 25 mg Clopidogrel Bisulfate (Plavix) 75 mg PO DAILY [facility] Last Admin: 01/17/18 10:09 Dose: 75 mg Docusate Sodium (Colace) 100 mg PO TID [facility] Last Admin: 01/17/18 13:44 Dose: 100 mg Ferrous Sulfate (Feosol) 325 mg PO TID [facility] Last Admin: 01/17/18 13:44 Dose: 325 mg Ciprofloxacin (Cipro 400mg/200ml Dsw) 400 mg in 200 mls @ 133 mls/hr IVPB Q12H [facility] PRN Reason: Protocol Last Admin: 01/17/18 13:44 Dose: 133 mls/hr Lactobacillus Acidophilus (Bacid Acidophilus) 1 cap PO BID [facility] Last Admin: 01/17/18 11:00 Dose: 1 cap Losartan Potassium (Cozaar) 50 mg PO DAILY [facility] Last Admin: 01/17/18 10:09 Dose: 50 mg Morphine Sulfate (Morphine) 3 mg IVP Q3 PRN PRN Reason: Pain, severe (8-10) Last Admin: 01/16/18 07:01 Dose: 3 mg Oxycodone HCl (Oxycodone Immediate Release Tab) 10 mg PO Q6 PRN PRN Reason: Pain, moderate (4-7) Last Admin: 01/17/18 14:23 Dose: 10 mg Pantoprazole Sodium (Protonix Ec Tab) 40 mg PO DAILY [facility] Last Admin: 01/17/18 10:09 Dose: 40 mg Rosuvastatin Calcium (Crestor) 10 mg PO HS [facility] Last Admin: 01/16/18 22:09 Dose: 10 mg Zolpidem Tartrate (Ambien) 5 mg PO HS PRN PRN Reason: Insomnia Last Admin: 01/17/18 00:28 Dose: 5 mg - Labs Labs: 01/17/18 06:41 01/17/18 06:41 PT 12.9 SECONDS (9.7-12.2) H 01/12/18 07:00 INR 1.2 01/12/18 07:00 APTT 166 SECONDS (21-34) H* D 01/17/18 02:21 - Constitutional Appears: Well, No Acute Distress - Head Exam Head Exam: ATRAUMATIC, NORMAL INSPECTION, NORMOCEPHALIC - Eye Exam Eye Exam: EOMI, Normal appearance - ENT Exam ENT Exam: Mucous Membranes Moist - Respiratory Exam Respiratory Exam: Clear to Ausculation Bilateral, NORMAL BREATHING PATTERN - Cardiovascular Exam Cardiovascular Exam: REGULAR RHYTHM - GI/Abdominal Exam GI & Abdominal Exam: Soft - Extremities Exam Extremities Exam: Normal Inspection. absent: Calf Tenderness, Full ROM Additional comments: Left popliteal incision well-healing. No erythema, dehiscence, or purulence. +pulses - Back Exam Back Exam: NORMAL INSPECTION - Neurological Exam Neurological Exam: Alert, Awake, Oriented x3 - Psychiatric Exam Psychiatric exam: Normal Affect, Normal Mood - Skin Skin Exam: Intact, Normal Color Assessment and Plan - Assessment and Plan (Free Text) Assessment: A 52 year old female s/p endovascular repair of L popliteal pseudoaneurysm, cath directed thrombectomy, and balloon angioplasty POD#1 Plan: D/c heparin drip resume aspirin & plavix clear for d/c from vascular surgery standpoint discuss further recs with Dr. Morris Bailey PGY3
[2018-01-17] MEDS: DAPTOmycin 500 MG in Sodium Chloride 0.9% 100 ML IV SCH (15:30)
--- NOTE | 2018-01-17 15:51 | CP.PCM.PN ---
<Martin Darden - Last Filed: 01/17/18 15:44> Subjective - Date & Time of Evaluation Date of Evaluation: 01/17/18 Time of Evaluation: 15:44 - Subjective Subjective: PGY-[address] Cornell Patient seen and examined at bedside. Patient has no acute complaints overnight. Patient slept well, tolerating PO meals. Patient went yesterday for popliteal aneurysm repair. Pt moved to ICU following her procedure today at telemetry status. Pt s/p angiojet/thrombectomy/balloon angioplasty of popliteal aneurysm. Pt still having some mild pain behind her knee, however states it is much improved. Pt denies any nausea, vomiting, dizziness, headaches, fever, chills. Objective - Vital Signs/Intake and Output Vital Signs (last 24 hours): Temp Pulse Resp BP Pulse Ox 98.9 F 76 15 142/81 98 01/17/18 12:00 01/17/18 12:07 01/17/18 12:07 01/17/18 12:07 01/17/18 12:07 Intake and Output: 01/17/18 01/17/18 06:59 18:59 Intake Total 1882.5 578.5 Output Total 1500 400 Balance 382.5 178.5 - Medications Medications: Current Medications Amlodipine Besylate (Norvasc) 5 mg PO DAILY [facility] Last Admin: 01/17/18 10:10 Dose: 5 mg Aspirin (Aspirin) 325 mg PO BID [facility] Last Admin: 01/17/18 10:09 Dose: 325 mg Bacitracin (Bacitracin) 1 ea TOP BID [facility] Last Admin: 01/17/18 10:09 Dose: 1 ea Carvedilol (Coreg) 25 mg PO BID [facility] Last Admin: 01/17/18 10:09 Dose: 25 mg Clopidogrel Bisulfate (Plavix) 75 mg PO DAILY [facility] Last Admin: 01/17/18 10:09 Dose: 75 mg Docusate Sodium (Colace) 100 mg PO TID [facility] Last Admin: 01/17/18 13:44 Dose: 100 mg Ferrous Sulfate (Feosol) 325 mg PO TID [facility] Last Admin: 01/17/18 13:44 Dose: 325 mg Ciprofloxacin (Cipro 400mg/200ml Dsw) 400 mg in 200 mls @ 133 mls/hr IVPB Q12H [facility] PRN Reason: Protocol Last Admin: 01/17/18 13:44 Dose: 133 mls/hr Lactobacillus Acidophilus (Bacid Acidophilus) 1 cap PO BID [facility] Last Admin: 01/17/18 11:00 Dose: 1 cap Losartan Potassium (Cozaar) 50 mg PO DAILY [facility] Last Admin: 01/17/18 10:09 Dose: 50 mg Morphine Sulfate (Morphine) 3 mg IVP Q3 PRN PRN Reason: Pain, severe (8-10) Last Admin: 01/16/18 07:01 Dose: 3 mg Oxycodone HCl (Oxycodone Immediate Release Tab) 10 mg PO Q6 PRN PRN Reason: Pain, moderate (4-7) Last Admin: 01/17/18 14:23 Dose: 10 mg Pantoprazole Sodium (Protonix Ec Tab) 40 mg PO DAILY [facility] Last Admin: 01/17/18 10:09 Dose: 40 mg Rosuvastatin Calcium (Crestor) 10 mg PO HS [facility] Last Admin: 01/16/18 22:09 Dose: 10 mg Zolpidem Tartrate (Ambien) 5 mg PO HS PRN PRN Reason: Insomnia Last Admin: 01/17/18 00:28 Dose: 5 mg - Labs Labs: 01/17/18 06:41 01/17/18 06:41 PT 12.9 SECONDS (9.7-12.2) H 01/12/18 07:00 INR 1.2 01/12/18 07:00 APTT 166 SECONDS (21-34) H* D 01/17/18 02:21 - Constitutional Appears: Well, Non-toxic, No Acute Distress - Head Exam Head Exam: ATRAUMATIC, NORMAL INSPECTION - Eye Exam Eye Exam: EOMI, Normal appearance Pupil Exam: NORMAL ACCOMODATION, PERRL - Respiratory Exam Respiratory Exam: Clear to Ausculation Bilateral, NORMAL BREATHING PATTERN - Cardiovascular Exam Cardiovascular Exam: REGULAR RHYTHM, +S1, +S2 - GI/Abdominal Exam GI & Abdominal Exam: Soft, Normal Bowel Sounds. absent: Tenderness - Extremities Exam Extremities Exam: Full ROM, Normal Capillary Refill, Normal Inspection Additional comments: No pain over site of catheter insertion on R wrist. Mild pain to palpation behind R knee. - Neurological Exam Neurological Exam: Alert, Awake, CN II-XII Intact, Normal Gait, Oriented x3 - Psychiatric Exam Psychiatric exam: Normal Affect, Normal Mood - Skin Skin Exam: Dry, Intact, Normal Color Assessment and Plan - Assessment and Plan (Free Text) Assessment: Left Popliteal Aneurysm Vascular Surgery Consult, Dr. Caceres 01/16: Patient is She is S/P angiogram of left popliteal artery, she had a popliteal stent and angiojet mechanical thrombectomy and ballon angioplasty. The patient had found in [place] a bilobed popliteal artery aneurysm -Largest sac 2.7 x 2.2 cm, smaller sac 2x1.5 cm. Patent popliteal artery. For pain the patient is on long acting Oxycontin as well as immediate release and also morphine IV as well Patient went for aneurysm repair today - awaiting surgery recs following the procedure Infected Left Knee Hardware ID consulted, Dr. Chatman 01/17: Daptomycin course ended today. Patient remains on Ciprofloxacin. WBC stable, afebrile at this time. Patient was being treated with Daptomycin over at [facility] prior to being transferred to [facility]. At [place] she had orthopedic left knee removal of hardware, I&D and placement of antibiotic spacer on 01/05/18. POD#9 - per ID, ABx spacer to remain x8 weeks Medications: * Acetaminophen 650mg PO q6h prn * Aspirin 325mg PO BID * Bacitracin 1ea TOP BID * Oxycodone 20mg po q12 dano, oxycodone 10mg po q6 prn, morphine 2mg IV PRN * Colace 100mg PO TID * Morphine 3mg IVP prn * Naproxen 500mg PO BID * Ciprofloxacin 400mg IVPB q12 * Daptomycin (completion date 01/17) Hypertension 01/16: Stable in the 140 systolic range. Continue medication regiment at [facility]: * Amlodipine 5mg PO daily * Carvedilol 25mg PO BID * Losartan 50mg PO daily Hyperlipidemia Continue medication regiment at [facility]: * Crestor 10mg PO daily Prophylactic Care VTE ppx - anticoag contraindicated 2/2 pre-op procedure, pending vascular surgery GI ppx - Protonix 40mg PO daily Ferrous Sulfate 325mg PO TID - continued home med Ambien 5mg PO HS prn - continued home med <Matias Cornell H - Last Filed: 01/17/18 16:44> Objective - Vital Signs/Intake and Output Vital Signs (last 24 hours): Temp Pulse Resp BP Pulse Ox 98.9 F 76 15 142/81 98 01/17/18 12:00 01/17/18 12:07 01/17/18 12:07 01/17/18 12:07 01/17/18 12:07 Intake and Output: 01/17/18 01/17/18 06:59 18:59 Intake Total 1882.5 578.5 Output Total 1500 400 Balance 382.5 178.5 - Medications Medications: Current Medications Amlodipine Besylate (Norvasc) 5 mg PO DAILY [facility] Last Admin: 01/17/18 10:10 Dose: 5 mg Aspirin (Aspirin) 325 mg PO BID [facility] Last Admin: 01/17/18 10:09 Dose: 325 mg Bacitracin (Bacitracin) 1 ea TOP BID [facility] Last Admin: 01/17/18 10:09 Dose: 1 ea Carvedilol (Coreg) 25 mg PO BID [facility] Last Admin: 01/17/18 10:09 Dose: 25 mg Clopidogrel Bisulfate (Plavix) 75 mg PO DAILY [facility] Last Admin: 01/17/18 10:09 Dose: 75 mg Docusate Sodium (Colace) 100 mg PO TID [facility] Last Admin: 01/17/18 13:44 Dose: 100 mg Ferrous Sulfate (Feosol) 325 mg PO TID [facility] Last Admin: 01/17/18 13:44 Dose: 325 mg Ciprofloxacin (Cipro 400mg/200ml Dsw) 400 mg in 200 mls @ 133 mls/hr IVPB Q12H [facility] PRN Reason: Protocol Last Admin: 01/17/18 13:44 Dose: 133 mls/hr Lactobacillus Acidophilus (Bacid Acidophilus) 1 cap PO BID [facility] Last Admin: 01/17/18 11:00 Dose: 1 cap Losartan Potassium (Cozaar) 50 mg PO DAILY [facility] Last Admin: 01/17/18 10:09 Dose: 50 mg Morphine Sulfate (Morphine) 3 mg IVP Q3 PRN PRN Reason: Pain, severe (8-10) Last Admin: 01/16/18 07:01 Dose: 3 mg Oxycodone HCl (Oxycodone Immediate Release Tab) 10 mg PO Q6 PRN PRN Reason: Pain, moderate (4-7) Last Admin: 01/17/18 14:23 Dose: 10 mg Pantoprazole Sodium (Protonix Ec Tab) 40 mg PO DAILY [facility] Last Admin: 01/17/18 10:09 Dose: 40 mg Rosuvastatin Calcium (Crestor) 10 mg PO HS [facility] Last Admin: 01/16/18 22:09 Dose: 10 mg Zolpidem Tartrate (Ambien) 5 mg PO HS PRN PRN Reason: Insomnia Last Admin: 01/17/18 00:28 Dose: 5 mg - Labs Labs: 01/17/18 06:41 01/17/18 06:41 PT 12.9 SECONDS (9.7-12.2) H 01/12/18 07:00 INR 1.2 01/12/18 07:00 APTT 166 SECONDS (21-34) H* D 01/17/18 02:21 Attending/Attestation - Attestation I have personally seen and examined this patient.: Yes I have fully participated in the care of the patient.: Yes I have reviewed all pertinent clinical information, including history, physical exam and plan: Yes Notes (Text): Medical attending: Patient was seen and examined by me, agrees the above note by medical concierge. Patient is being moved out of the ICU to the regular medical floors. As mentioned previously she is status post intervention of the left politeal aneurysm. When I saw her early in the morning she reported that the pain was fine however later on when I rounded with the medical residents she said that the pain was increasing. She was due for some pain medication Currently her hemoglobin is stable, her feet feel warm, I was able to palpate the tibialis posterior pulse. She is able to wiggle her toes. There is good color for her lower extremity as well. As mentioned above the patient is on IV Cipro and this is the last day of the IV daptomycin. Currently she is afebrile, white blood cell count stable. thank you Matias Cornell
--- NOTE | 2018-01-17 19:53 | CP.PCM.PN ---
Subjective - Date & Time of Evaluation Date of Evaluation: 01/17/18 Time of Evaluation: 14:00 - Subjective Subjective: dictated Objective - Vital Signs/Intake and Output Vital Signs (last 24 hours): Temp Pulse Resp BP Pulse Ox 98.9 F 76 15 120/62 98 01/17/18 12:00 01/17/18 12:07 01/17/18 12:07 01/17/18 18:05 01/17/18 12:07 Intake and Output: 01/17/18 01/18/18 18:59 06:59 Intake Total 878.5 Output Total 800 Balance 78.5 - Medications Medications: Current Medications Amlodipine Besylate (Norvasc) 5 mg PO DAILY [facility] Last Admin: 01/17/18 10:10 Dose: 5 mg Aspirin (Aspirin) 325 mg PO BID [facility] Last Admin: 01/17/18 18:05 Dose: 325 mg Bacitracin (Bacitracin) 1 ea TOP BID [facility] Last Admin: 01/17/18 18:08 Dose: 1 ea Carvedilol (Coreg) 25 mg PO BID [facility] Last Admin: 01/17/18 18:05 Dose: 25 mg Clopidogrel Bisulfate (Plavix) 75 mg PO DAILY [facility] Last Admin: 01/17/18 10:09 Dose: 75 mg Docusate Sodium (Colace) 100 mg PO TID [facility] Last Admin: 01/17/18 18:05 Dose: 100 mg Ferrous Sulfate (Feosol) 325 mg PO TID [facility] Last Admin: 01/17/18 18:07 Dose: 325 mg Ciprofloxacin (Cipro 400mg/200ml Dsw) 400 mg in 200 mls @ 133 mls/hr IVPB Q12H [facility] PRN Reason: Protocol Last Admin: 01/17/18 13:44 Dose: 133 mls/hr Lactobacillus Acidophilus (Bacid Acidophilus) 1 cap PO BID [facility] Last Admin: 01/17/18 18:14 Dose: 1 cap Losartan Potassium (Cozaar) 50 mg PO DAILY [facility] Last Admin: 01/17/18 10:09 Dose: 50 mg Morphine Sulfate (Morphine) 3 mg IVP Q3 PRN PRN Reason: Pain, severe (8-10) Last Admin: 01/16/18 07:01 Dose: 3 mg Oxycodone HCl (Oxycodone Immediate Release Tab) 10 mg PO Q6 PRN PRN Reason: Pain, moderate (4-7) Last Admin: 01/17/18 14:23 Dose: 10 mg Pantoprazole Sodium (Protonix Ec Tab) 40 mg PO DAILY [facility] Last Admin: 01/17/18 10:09 Dose: 40 mg Rosuvastatin Calcium (Crestor) 10 mg PO HS [facility] Last Admin: 01/16/18 22:09 Dose: 10 mg Zolpidem Tartrate (Ambien) 5 mg PO HS PRN PRN Reason: Insomnia Last Admin: 01/17/18 00:28 Dose: 5 mg - Labs Labs: 01/17/18 06:41 01/17/18 06:41 PT 12.9 SECONDS (9.7-12.2) H 01/12/18 07:00 INR 1.2 01/12/18 07:00 APTT 166 SECONDS (21-34) H* D 01/17/18 02:21
[2018-01-18] MEDS: Ciprofloxacin 400mg/200ml D5W 400 MG/200 ML BAG IVPB SCH ×2 (02:26→15:00)
--- NOTE | 2018-01-18 04:56 | PN ---
DATE: 01/17/2018 INFECTIOUS DISEASE FOLLOWUP SUBJECTIVE: The patient still complains of pain in the left lower leg, but she has had a spacer placed in the left knee and has some left leg swelling. She has less pain in the left popliteal area. Denies any fever. No nausea. No vomiting. She is also getting antibiotics for the PICC line but when I went in, she was complaining of pain in the lower extremity, left with edema. She was waiting to be seen by the surgical team. PHYSICAL EXAMINATION: VITAL SIGNS: T-max is 98.9, pulse 79, blood pressure 142/81, respirations are 18. HEENT: Head is atraumatic, normocephalic. NECK: Supple. LUNGS: Clear. HEART: S1, S2 are regular. ABDOMEN: Soft, nontender. No guarding, no rigidity present. EXTREMITIES: She has a dressing on the left knee, and left leg remains little swollen, but no cellulitis noted. ASSESSMENT AND PLAN: She is status post left popliteal pseudoaneurysm repair, and she has a spacer for infected knee and is on the treatment. She is on Cipro intravenously at this time. She needs to be also on daptomycin. We will follow. I will be away till Monday and Dr. Harris will be covering me. I think she should get both daptomycin as well as Cipro as she has infected knee. We will follow. Talha Chatman MD
[2018-01-18 06:01] LABS: BASO # 0.1 K/uL (0.0-0.2); BASO % 0.6 % (0.0-2.0); EOS # 0.2 K/uL (0.0-0.7); EOS % 2.7 % (0.0-4.0); HEMOGLOBIN 9.2 g/dL (11.0-16.0); LYMPH % 21.3 % (20.0-40.0); MEAN CELL VOLUME 85.7 fL (81.0-99.0); MEAN CORPUSCULAR HEMOGLOBIN 28.6 pg (27.0-31.0); MEAN CORPUSCULAR HGB CONC 33.3 g/dL (33.0-37.0); MEAN PLATELET VOLUME 9.8 fL (7.2-11.7); MONO # 1.2 K/uL (0.0-0.8); MONO % 13.2 % (0.0-10.0); NEUT # 5.7 K/uL (1.8-7.0); NEUT % 62.2 % (50.0-75.0); RBC 3.24 Mil/uL (3.80-5.20); RED CELL DISTRIBUTION WIDTH 15.3 % (11.5-14.5); WHITE BLOOD COUNT 9.2 K/uL (4.8-10.8)
--- NOTE | 2018-01-18 06:43 | VAS ---
DATE: 01/16/2018 PREOPERATIVE DIAGNOSIS: Left popliteal artery aneurysm. POSTOPERATIVE DIAGNOSIS: Left popliteal artery aneurysm. PROCEDURE CARRIED OUT: Selective angiogram of left leg via right groin with thrombin injection of left popliteal artery aneurysm. Subsequently, we had deployment of a 6 mm x 5 mm Viabahn stent and then we did an AngioJet thrombectomy of the anterior tibial, posterior tibial and peroneal arteries with subsequent balloon angioplasty using 2 mm balloon of all three vessels. SURGEON: Fidencio Caceres Jr., MD. CO-SURGEON: Dr. Avendano. ANESTHESIOLOGIST: Dr. Orta. INDICATIONS: The patient is a middle-aged woman who had removal of an infected knee prosthesis, placement of a spacer. Subsequently on evaluation, she was found to have a large pseudoaneurysm of the popliteal artery. OPERATIVE FINDINGS: Initially we carried out an angiogram, deployed a balloon at the orifice of the aneurysm and then slowly injected 2 mL of thrombin. This initially went quite well and lead to thrombosis of the aneurysm. Initially, this seemed to control the problem; however, subsequent films showed that there were abnormality seen in all three tibial vessels consistent with clot. We heparinized the patient. We then deployed a Viabahn stent to prevent any further outflow of clot from the aneurysm. We then went through with cannulating these vessels and wire, we went through first with the AngioJet device and sucked out any products that were available and then we ballooned these each with a 2 mm balloon. At the final result, there was excellent flow through the anterior tibial and peroneal arteries, but the mid portion of the posterior tibia was not as good. There was excellent flow in the foot and pink toes because of this we terminated the procedure, deployed a Perclose device in the groin. OPERATIONS CARRIED OUT: 1. Selective angiogram of left leg. 2. Thrombin injection of left popliteal artery pseudoaneurysm. 3. Deployment of Viabahn stent. 4. AngioJet and balloon angioplasty of all three tibial vessels, Perclose device was then deployed in the groin. Fidencio Caceres Jr., MD
[2018-01-18] MEDS: oxyCODONE 5 mg Immediate Release Tab PO PRN ×3 (09:04→21:48)
[2018-01-18] MEDS: Pantoprazole 40 mg EC Tab PO SCH (09:14)
[2018-01-18] MEDS: Bacitracin 500 Units/gm Oint Foilpak UD TOP SCH ×2 (09:15→17:26)
[2018-01-18] MEDS: Lactobacillus Acidophilus 500 MU Cap PO SCH ×2 (09:27→17:59)
[2018-01-18] MEDS: Morphine 4 MG/ML VIAL IVP PRN (11:26)
--- NOTE | 2018-01-18 13:49 | CP.PCM.PN ---
Subjective - Date & Time of Evaluation Date of Evaluation: 01/18/18 Time of Evaluation: 13:46 - Subjective Subjective: Patient states she is having increased pain in her left leg, especially behind her knee and her calf today. She says it started early this am. Denies CP/SOB/ dizzines. Objective - Vital Signs/Intake and Output Vital Signs (last 24 hours): Temp Pulse Resp BP Pulse Ox 98.7 F 75 17 139/88 99 01/18/18 08:00 01/18/18 08:00 01/18/18 08:00 01/18/18 09:26 01/18/18 08:00 Intake and Output: 01/18/18 01/18/18 06:59 18:59 Intake Total 600 Output Total 1100 Balance -500 - Medications Medications: Current Medications Amlodipine Besylate (Norvasc) 5 mg PO DAILY [facility] Last Admin: 01/18/18 09:14 Dose: 5 mg Aspirin (Aspirin) 325 mg PO BID [facility] Last Admin: 01/18/18 09:14 Dose: 325 mg Bacitracin (Bacitracin) 1 ea TOP BID [facility] Last Admin: 01/18/18 09:15 Dose: 1 ea Carvedilol (Coreg) 25 mg PO BID [facility] Last Admin: 01/18/18 09:26 Dose: 25 mg Clopidogrel Bisulfate (Plavix) 75 mg PO DAILY [facility] Last Admin: 01/18/18 09:05 Dose: 75 mg Docusate Sodium (Colace) 100 mg PO TID [facility] Last Admin: 01/18/18 13:02 Dose: 100 mg Ferrous Sulfate (Feosol) 325 mg PO TID [facility] Last Admin: 01/18/18 13:02 Dose: 325 mg Ciprofloxacin (Cipro 400mg/200ml Dsw) 400 mg in 200 mls @ 133 mls/hr IVPB Q12H [facility] PRN Reason: Protocol Last Admin: 01/18/18 02:26 Dose: 133 mls/hr Daptomycin 500 mg/ Sodium (Chloride) 100 mls @ 100 mls/hr IV Q24H [facility] PRN Reason: Protocol Stop: 01/23/18 15:31 Lactobacillus Acidophilus (Bacid Acidophilus) 1 cap PO BID [facility] Last Admin: 01/18/18 09:27 Dose: 1 cap Losartan Potassium (Cozaar) 50 mg PO DAILY [facility] Last Admin: 01/18/18 09:14 Dose: 50 mg Morphine Sulfate (Morphine) 3 mg IVP Q3 PRN PRN Reason: Pain, severe (8-10) Last Admin: 01/18/18 11:26 Dose: 3 mg Oxycodone HCl (Oxycodone Immediate Release Tab) 10 mg PO Q6 PRN PRN Reason: Pain, moderate (4-7) Last Admin: 01/18/18 09:04 Dose: 10 mg Pantoprazole Sodium (Protonix Ec Tab) 40 mg PO DAILY [facility] Last Admin: 01/18/18 09:14 Dose: 40 mg Rosuvastatin Calcium (Crestor) 10 mg PO HS [facility] Last Admin: 01/17/18 21:11 Dose: 10 mg Zolpidem Tartrate (Ambien) 5 mg PO HS PRN PRN Reason: Insomnia Last Admin: 01/17/18 23:55 Dose: 5 mg - Labs Labs: 01/18/18 05:51 01/17/18 06:41 PT 12.9 SECONDS (9.7-12.2) H 01/12/18 07:00 INR 1.2 01/12/18 07:00 APTT 166 SECONDS (21-34) H* D 01/17/18 02:21 - Extremities Exam Additional comments: LLE: increased peripheral edema to LLE today, pitting, 1-2+ LLE only. Incision intact, dry, no erythema. Patient had removed knee immobilizer because she said it was causing pain. Different brand of immobilizer applied. Advised pt knee is not stable and knee immobilizer needs ot be worn at all times. 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 Tamayo 7-10 days call for appt maintain knee immobilizer, NWB LLE d/w Dr. Tamayo, agrees with above Status: Acute (2) Vitamin D deficiency Assessment & Plan: supplement Status: Acute
[2018-01-18] MEDS ORDERED: Ergocalciferol 50,000 Intl Units Cap PO SCH (14:00)
--- NOTE | 2018-01-18 15:10 | CP.PCM.PN ---
<Martin Darden - Last Filed: 01/18/18 18:07> Subjective - Date & Time of Evaluation Date of Evaluation: 01/18/18 Time of Evaluation: 15:03 - Subjective Subjective: PGY-[address] Cornell Patient seen and examined at bedside. Patient was still complaining of pain behind her left knee and extending distally just past her knee. Patient denies any fevers or chills. Patient has expressed wishes for home PT upon discharge rather than d/c to [facility]. Once patient has been medically cleared, we will plan to discharge her home with plans for home PT. Case management will arrange for the patient to have home PT pending insurance approval. Pt denies any chest pain, sensory deficits, fevers, chills, nausea, vomiting. Patient was initially seen and evaluated this morning at 9:00. After reaching out to ortho and vascular for discharge planning, the orthopedic PA Gustabo ordered a lower extremity doppler for continued left leg pain. The official read is pending, however I was informed by nursing at the time of the exam that the doppler US study was positive for DVT of the L posterior tibial vein. The plan, discussed with the vascular surgery resident as well as Dr. Cornell was to start the patient on lovenox 80 SC BID today with plans to discharge the patient on Eliquis for treatment of her DVT. Objective - Vital Signs/Intake and Output Vital Signs (last 24 hours): Temp Pulse Resp BP Pulse Ox 98.7 F 75 17 139/88 99 01/18/18 08:00 01/18/18 08:00 01/18/18 08:00 01/18/18 09:26 01/18/18 08:00 Intake and Output: 01/18/18 01/18/18 06:59 18:59 Intake Total 600 Output Total 1100 Balance -500 - Medications Medications: Current Medications Amlodipine Besylate (Norvasc) 5 mg PO DAILY [facility] Last Admin: 01/18/18 09:14 Dose: 5 mg Aspirin (Aspirin) 325 mg PO BID [facility] Last Admin: 01/18/18 09:14 Dose: 325 mg Bacitracin (Bacitracin) 1 ea TOP BID [facility] Last Admin: 01/18/18 09:15 Dose: 1 ea Calcium/Vitamin D (Oscal-D 250 Mg-125 Units Tab) 1 tab PO DAILY [facility] Carvedilol (Coreg) 25 mg PO BID [facility] Last Admin: 01/18/18 09:26 Dose: 25 mg Clopidogrel Bisulfate (Plavix) 75 mg PO DAILY [facility] Last Admin: 01/18/18 09:05 Dose: 75 mg Docusate Sodium (Colace) 100 mg PO TID [facility] Last Admin: 01/18/18 13:02 Dose: 100 mg Ergocalciferol (Drisdol 50,000 Intl Units Cap) 1 cap PO Q7D [facility] Ferrous Sulfate (Feosol) 325 mg PO TID [facility] Last Admin: 01/18/18 13:02 Dose: 325 mg Ciprofloxacin (Cipro 400mg/200ml Dsw) 400 mg in 200 mls @ 133 mls/hr IVPB Q12H [facility] PRN Reason: Protocol Last Admin: 01/18/18 02:26 Dose: 133 mls/hr Daptomycin 500 mg/ Sodium (Chloride) 100 mls @ 100 mls/hr IV Q24H [facility] PRN Reason: Protocol Stop: 01/23/18 15:31 Lactobacillus Acidophilus (Bacid Acidophilus) 1 cap PO BID [facility] Last Admin: 01/18/18 09:27 Dose: 1 cap Losartan Potassium (Cozaar) 50 mg PO DAILY [facility] Last Admin: 01/18/18 09:14 Dose: 50 mg Morphine Sulfate (Morphine) 3 mg IVP Q3 PRN PRN Reason: Pain, severe (8-10) Last Admin: 01/18/18 11:26 Dose: 3 mg Oxycodone HCl (Oxycodone Immediate Release Tab) 10 mg PO Q6 PRN PRN Reason: Pain, moderate (4-7) Last Admin: 01/18/18 09:04 Dose: 10 mg Pantoprazole Sodium (Protonix Ec Tab) 40 mg PO DAILY [facility] Last Admin: 01/18/18 09:14 Dose: 40 mg Rosuvastatin Calcium (Crestor) 10 mg PO HS [facility] Last Admin: 01/17/18 21:11 Dose: 10 mg Zolpidem Tartrate (Ambien) 5 mg PO HS PRN PRN Reason: Insomnia Last Admin: 01/17/18 23:55 Dose: 5 mg - Labs Labs: 01/18/18 05:51 01/17/18 06:41 PT 12.9 SECONDS (9.7-12.2) H 01/12/18 07:00 INR 1.2 01/12/18 07:00 APTT 166 SECONDS (21-34) H* D 01/17/18 02:21 - Head Exam Head Exam: ATRAUMATIC, NORMAL INSPECTION - Eye Exam Eye Exam: EOMI, Normal appearance Pupil Exam: NORMAL ACCOMODATION, PERRL - ENT Exam ENT Exam: Mucous Membranes Moist, Normal Exam - Respiratory Exam Respiratory Exam: Clear to Ausculation Bilateral, NORMAL BREATHING PATTERN. absent: Rales, Wheezes, Respiratory Distress - GI/Abdominal Exam GI & Abdominal Exam: Soft, Normal Bowel Sounds. absent: Distended, Guarding, Tenderness - Extremities Exam Extremities Exam: Normal Capillary Refill, Tenderness. absent: Calf Tenderness , Joint Swelling, Pedal Edema Additional comments: No pain over site of catheter insertion on R wrist. Mild pain to palpation behind R knee. - Neurological Exam Neurological Exam: Alert, Awake, CN II-XII Intact, Normal Gait, Oriented x3 - Skin Skin Exam: Dry, Intact, Normal Color, Warm Assessment and Plan - Assessment and Plan (Free Text) Assessment: Left Popliteal Aneurysm Vascular Surgery Consult, Dr. Caceres 01/16: Patient is She is S/P angiogram of left popliteal artery, she had a popliteal stent and angiojet mechanical thrombectomy and ballon angioplasty. The patient had found in [place] a bilobed popliteal artery aneurysm -Largest sac 2.7 x 2.2 cm, smaller sac 2x1.5 cm. Patent popliteal artery. For pain the patient is on long acting Oxycontin as well as immediate release and also morphine IV as well S/p aneurysm repair 01/16 - Successful procedure. Surgery has signed off on the case Infected Left Knee Hardware ID consulted, Dr. Chatman 01/17: Pt remains on Daptomycin Patient remains on Ciprofloxacin. WBC stable, afebrile at this time. Patient was being treated with Daptomycin over at [facility] prior to being transferred to [facility]. At [place] she had orthopedic left knee removal of hardware, I&D and placement of antibiotic spacer on 01/05/18. POD#9 - per ID, ABx spacer to remain x8 weeks Medications: * Acetaminophen 650mg PO q6h prn * Aspirin 325mg PO BID * Plavix 75mg PO daily * Bacitracin 1ea TOP BID * Oxycodone 20mg po q12 dano, oxycodone 10mg po q6 prn, morphine 2mg IV PRN * Colace 100mg PO TID * Morphine 3mg IVP prn * Naproxen 500mg PO BID * Ciprofloxacin 400mg IVPB q12 * Daptomycin continued - 500mg IV @ 100mols/hr q24 hrs DVT * Unoffical report, provided per nursing (official read pending)- DVT of Left posterior tibial vein. * The plan, discussed with the vascular surgery resident as well as Dr. Cornell was to start the patient on lovenox 80 SC BID today with plans to discharge the patient on Eliquis for treatment of her DVT. * Current Antiplatelets/Anticoagulation: * ASA 325 mg PO BID * Plavix 75 mg daily * Lovenox 80mg SC BID Hypertension 01/16: Stable in the 140 systolic range. Continue medication regiment at [facility]: * Amlodipine 5mg PO daily * Carvedilol 25mg PO BID * Losartan 50mg PO daily Hyperlipidemia Continue medication regiment at [facility]: * Crestor 10mg PO daily Prophylactic Care VTE ppx - On Lovenox 80 mg BID for treatment of DVT GI ppx - Protonix 40mg PO daily Ferrous Sulfate 325mg PO TID - continued home med Ambien 5mg PO HS prn - continued home med Assessment/Plan discussed with Dr. Aneta Darden, PGY-1 <Matias Cornell - Last Filed: 01/19/18 07:54> Objective - Vital Signs/Intake and Output Vital Signs (last 24 hours): Temp Pulse Resp BP Pulse Ox 98.9 F 81 16 112/72 99 01/19/18 04:00 01/19/18 00:00 01/19/18 00:00 01/19/18 00:00 01/19/18 00:00 Intake and Output: 01/19/18 01/19/18 06:59 18:59 Intake Total 550 Output Total 600 Balance -50 - Medications Medications: Current Medications Amlodipine Besylate (Norvasc) 5 mg PO DAILY [facility] Last Admin: 01/18/18 09:14 Dose: 5 mg Aspirin (Aspirin) 325 mg PO BID [facility] Last Admin: 01/18/18 17:26 Dose: 325 mg Bacitracin (Bacitracin) 1 ea TOP BID [facility] Last Admin: 01/18/18 17:26 Dose: 1 ea Calcium/Vitamin D (Oscal-D 250 Mg-125 Units Tab) 1 tab PO DAILY [facility] Last Admin: 01/18/18 15:36 Dose: 1 tab Carvedilol (Coreg) 25 mg PO BID [facility] Last Admin: 01/18/18 17:49 Dose: 25 mg Clopidogrel Bisulfate (Plavix) 75 mg PO DAILY [facility] Last Admin: 01/18/18 09:05 Dose: 75 mg Docusate Sodium (Colace) 100 mg PO TID [facility] Last Admin: 01/18/18 17:28 Dose: 100 mg Enoxaparin Sodium (Lovenox) 80 mg SC Q12 [facility] Ergocalciferol (Drisdol 50,000 Intl Units Cap) 1 cap PO Q7D [facility] Last Admin: 01/18/18 15:36 Dose: 1 cap Ferrous Sulfate (Feosol) 325 mg PO TID [facility] Last Admin: 01/18/18 17:28 Dose: 325 mg Ciprofloxacin (Cipro 400mg/200ml Dsw) 400 mg in 200 mls @ 133 mls/hr IVPB Q12H [facility] PRN Reason: Protocol Last Admin: 01/19/18 02:36 Dose: 133 mls/hr Daptomycin 500 mg/ Sodium (Chloride) 100 mls @ 100 mls/hr IV Q24H [facility] PRN Reason: Protocol Stop: 01/23/18 15:31 Last Admin: 01/18/18 17:33 Dose: 100 mls/hr Lactobacillus Acidophilus (Bacid Acidophilus) 1 cap PO BID [facility] Last Admin: 01/18/18 17:59 Dose: 1 cap Losartan Potassium (Cozaar) 50 mg PO DAILY [facility] Last Admin: 01/18/18 09:14 Dose: 50 mg Morphine Sulfate (Morphine) 3 mg IVP Q3 PRN PRN Reason: Pain, severe (8-10) Last Admin: 01/18/18 11:26 Dose: 3 mg Oxycodone HCl (Oxycodone Immediate Release Tab) 10 mg PO Q6 PRN PRN Reason: Pain, moderate (4-7) Last Admin: 01/19/18 05:50 Dose: 10 mg Pantoprazole Sodium (Protonix Ec Tab) 40 mg PO DAILY [facility] Last Admin: 01/18/18 09:14 Dose: 40 mg Rosuvastatin Calcium (Crestor) 10 mg PO HS [facility] Last Admin: 01/18/18 21:48 Dose: 10 mg Zolpidem Tartrate (Ambien) 5 mg PO HS PRN PRN Reason: Insomnia Last Admin: 01/18/18 23:38 Dose: 5 mg - Labs Labs: 01/19/18 06:23 01/19/18 06:23 PT 14.7 SECONDS (9.7-12.2) H 01/19/18 07:25 INR 1.3 01/19/18 07:25 APTT 34 SECONDS (21-34) D 01/19/18 07:25 Attending/Attestation - Attestation I have personally seen and examined this patient.: Yes I have fully participated in the care of the patient.: Yes I have reviewed all pertinent clinical information, including history, physical exam and plan: Yes Notes (Text): 01/19/18 07:52 Medical attending: Patient was seen and examined by me. Agree with the above note by the resident The patient was not in acute pain like previous day but she did remark that the pain was different today than before. She was ordered a lower extremity doppler by orthopedics and she has a DVT found. She was placed on lovenox SQ BID and lululinda will start Eliquis PO BID for the time being. I was hoping to discharge patient soon as she wants to go home and have home PT Matias Cornell
[2018-01-18] MEDS: Calcium-Vit D 250 mg-125 Units Tab UD PO SCH (15:36)
[2018-01-18] MEDS: DAPTOmycin 500 MG in Sodium Chloride 0.9% 100 ML IV SCH (17:33)
[2018-01-19] MEDS: Ciprofloxacin 400mg/200ml D5W 400 MG/200 ML BAG IVPB SCH ×2 (02:36→14:51)
[2018-01-19] MEDS: oxyCODONE 5 mg Immediate Release Tab PO PRN ×2 (05:50→12:46)
[2018-01-19 06:36] LABS: BASO # 0.1 K/uL (0.0-0.2); BASO % 0.7 % (0.0-2.0); EOS # 0.2 K/uL (0.0-0.7); EOS % 2.2 % (0.0-4.0); HEMOGLOBIN 9.6 g/dL (11.0-16.0); LYMPH # 1.7 K/uL (1.0-4.3); MEAN CELL VOLUME 84.6 fL (81.0-99.0); MEAN CORPUSCULAR HEMOGLOBIN 29.4 pg (27.0-31.0); MEAN CORPUSCULAR HGB CONC 34.7 g/dL (33.0-37.0); MEAN PLATELET VOLUME 10.2 fL (7.2-11.7); MONO # 1.2 K/uL (0.0-0.8); MONO % 11.7 % (0.0-10.0); NEUT # 6.9 K/uL (1.8-7.0); NEUT % 68.4 % (50.0-75.0); RBC 3.28 Mil/uL (3.80-5.20); WHITE BLOOD COUNT 10.1 K/uL (4.8-10.8)
[2018-01-19 06:51] LABS: BLOOD UREA NITROGEN 6 mg/dL (7-17); CALCIUM 9.3 mg/dl (8.6-10.4); GFR NON-AFRICAN AMERICAN > 60
[2018-01-19 07:51] LABS: INR 1.3; PROTHROMBIN TIME 14.7 SECONDS (9.7-12.2)
[2018-01-19] MEDS: Lactobacillus Acidophilus 500 MU Cap PO SCH (09:19)
[2018-01-19] MEDS: Pantoprazole 40 mg EC Tab PO SCH (09:19)
[2018-01-19] MEDS: Calcium-Vit D 250 mg-125 Units Tab UD PO SCH (09:20)
[2018-01-19] MEDS: Bacitracin 500 Units/gm Oint Foilpak UD TOP SCH (09:20)
[2018-01-19] MEDS ORDERED: Enoxaparin 80 mg Syringe SC SCH (10:00)
--- NOTE | 2018-01-19 10:10 | CP.PCM.DIS ---
<Martin Darden - Last Filed: 01/19/18 18:30> Provider - Provider Date of Admission: 01/11/18 23:17 Attending physician: Matias Cornell DO Primary care physician: Panda Reece MD Time Spent in preparation of Discharge (in minutes): 45 Diagnosis - Discharge Diagnosis (1) Infection of total left knee replacement Status: Acute (2) Pseudoaneurysm Status: Acute Hospital Course - Lab Results Lab Results: Micro Results 01/16/18 16:19 Naris MRSA Culture (Admit) - Final MRSA NOT DETECTED Most Recent Lab Values WBC 10.1 K/uL (4.8-10.8) 01/19/18 06:23 RBC 3.28 Mil/uL (3.80-5.20) L 01/19/18 06:23 Hgb 9.6 g/dL (11.0-16.0) L 01/19/18 06:23 Hct 27.7 % (34.0-47.0) L 01/19/18 06:23 MCV 84.6 fL (81.0-99.0) 01/19/18 06:23 MCH 29.4 pg (27.0-31.0) 01/19/18 06:23 MCHC 34.7 g/dL (33.0-37.0) 01/19/18 06:23 RDW 15.0 % (11.5-14.5) H 01/19/18 06:23 Plt Count 270 K/uL (130-400) 01/19/18 06:23 MPV 10.2 fL (7.2-11.7) 01/19/18 06:23 Neut % (Auto) 68.4 % (50.0-75.0) 01/19/18 06:23 Lymph % (Auto) 17.0 % (20.0-40.0) L 01/19/18 06:23 [place] % (Auto) 11.7 % (0.0-10.0) H 01/19/18 06:23 Eos % (Auto) 2.2 % (0.0-4.0) 01/19/18 06:23 Baso % (Auto) 0.7 % (0.0-2.0) 01/19/18 06:23 Neut # (Auto) 6.9 K/uL (1.8-7.0) 01/19/18 06:23 Lymph # (Auto) 1.7 K/uL (1.0-4.3) 01/19/18 06:23 [place] # (Auto) 1.2 K/uL (0.0-0.8) H 01/19/18 06:23 Eos # (Auto) 0.2 K/uL (0.0-0.7) 01/19/18 06:23 Baso # (Auto) 0.1 K/uL (0.0-0.2) 01/19/18 06:23 ESR 45 mm/hr (0-20) H 01/13/18 07:11 PT 14.7 SECONDS (9.7-12.2) H 01/19/18 07:25 INR 1.3 01/19/18 07:25 APTT 34 SECONDS (21-34) D 01/19/18 07:25 Sodium 138 mmol/L (132-148) 01/19/18 06:23 Potassium 3.8 mmol/L (3.6-5.2) 01/19/18 06:23 Chloride 102 mmol/L (98-107) 01/19/18 06:23 Carbon Dioxide 29 mmol/L (22-30) 01/19/18 06:23 Anion Gap 11 (10-20) 01/19/18 06:23 BUN 6 mg/dL (7-17) L 01/19/18 06:23 Creatinine 0.6 mg/dL (0.7-1.2) L 01/19/18 06:23 Est GFR ( Amer) > 60 01/19/18 06:23 Est GFR (Non-Af Amer) > 60 01/19/18 06:23 Random Glucose 115 mg/dL (65-105) H 01/19/18 06:23 Calcium 9.3 mg/dl (8.6-10.4) 01/19/18 06:23 Phosphorus 3.0 mg/dL (2.5-4.5) 01/19/18 06:23 Magnesium 1.8 mg/dL (1.6-2.3) 01/19/18 06:32 Total Bilirubin 0.5 mg/dL (0.2-1.3) 01/17/18 06:41 AST 67 U/L (14-36) H 01/17/18 06:41 ALT 72 U/L (9-52) H 01/17/18 06:41 Alkaline Phosphatase 104 U/L (38-126) 01/17/18 06:41 Total Protein 6.6 g/dL (6.3-8.3) 01/17/18 06:41 Albumin 3.9 g/dL (3.5-5.0) 01/17/18 06:41 Globulin 2.7 gm/dL (2.2-3.9) 01/17/18 06:41 Albumin/Globulin Ratio 1.4 (1.0-2.1) 01/17/18 06:41 25-OH Vitamin D Total 13.0 NG/ML (30.0-100.0) L 01/18/18 05:51 Beta HCG, Quant < 2.39 mIU/ML 01/12/18 07:00 Urine HCG, Qual Negative (NEGATIVE) 01/16/18 22:22 Hepatitis A IgM Ab Negative (NEGATIVE) 01/14/18 08:10 Hep Bs Antigen Negative (NEGATIVE) 01/14/18 08:10 Hep B Core IgM Ab Negative (NEGATIVE) 01/14/18 08:10 Hepatitis C Antibody Negative (NEGATIVE) 01/14/18 08:10 Blood Type O POSITIVE 01/16/18 10:30 Antibody Screen Negative 01/16/18 10:30 - Hospital Course Hospital Course: HPI: Patient is a 52 year old female with a past medical history of HTN, HDL, and DJD presenting as a transfer from [facility]. Patient recently went to the OR with Dr. Tamayo on 01/05/2018 for removal of left knee hardware, I&D and placement of an antibiotic spacer. After the surgery, patient was experiencing pain and numbness located behind the knee and extending down the left leg. An ultrasound was ordered which was suspicious for a pseudoaneurysm in the popliteal fossa. Patient was transferred to [facility] for evaluation by Vascular Surgery Team. She is currently experiencing pain in the left leg with intermittent numbness but reports feeling well otherwise. Denies fevers, chills, nausea, vomiting, diarrhea, constipation, chest pain, shortness of breath, abdominal pain, diaphoresis or headaches. Hospital course: Vascular Surgery Consult was placed to Dr. 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 The largest aneurysm sac measures 2.7 x 2.2 cm. There is a smaller aneurysm sac measuring 2 x 1.5 cm. Popliteal artery is patent. - Patient scheduled for aneurysm repair (Balloon angioplasty with dye) on [address] Caceres and Dr. Avendano Infectious disease consult placed to Dr. Chatman on 01/12/2018 - As patient was started on Daptomycin at [facility], patient will be continued on Daptomycin IV at home. Patient had antibiotic spacer placed on 01/05/2018 - this should be remain in place x 8 weeks post op. Additionally patient will continue Bacitracin 1 cap PO BID and start Ciprofloxacin 400 mg IV q12h (day 1 - 2017). Both Cipro and Daptomycin to be continued for a total of [address] Chatman. - 01/16/2018 - Procedure: Aneurysm injection, thrombectomy, and balloon angioplasty of [address] Caceres: Selective angiogram of the left popliteal artery was performed via the right side. US guided thrombin injection of PSA popliteal. 6x5 via bahn popliteal stent. Angiojet mechanical thrombectomy of all three tibial vessels and balloon angioplasty using a 2 mm balloon Post operative patient started on Plavix 75 mg PO qd by Dr. Caceres on 2017 Patient was initially planned to be discharged on 01/18. Doppler LLE was ordered on 01/18 for continued LLE pain, which was positive for DVT in the posterior tibial vein. Per surgery, ASA was discontinued and patient started on Eliquis 5 mg BID, which she will remain on until follow up with vascular. Pain controlled with Morphine IV and Oxycodone PO during hospital stay HTN controlled during hospital stay with Amlodipine 5 mg PO qd, Carvedilol 25 mg PO BID, and Losartan 50 mg PO qd HLD controlled with Crestor 10 mg PO qd At time of discharge on patient is resting comfortably with no complaints, except for residual L leg pain. She denies dizziness, chest pain, headache, abdominal pain, palpitations, nausea, vomiting, diarrhea and shortness of breath. Has been tolerating PO since procedure without incident. Patient was discharged with home prescriptions for her medications. Initially, there was a mistake with her prescriptions for Oxycontin, which were amended and patient was placed on Oxycontin 10mg IR PO q6 PRN for 3 days and Oxycontin ER 20mg PO q12 for 3 days. Plan: Patient cleared for discharge per Dr. Cornell Please return to ER if symptoms reoccur or worsen. Continue your medications as per your medication reconciliation. Please follow up with Orthopedics and Vascular surgery as an outpatient. Please follow up with Dr. Tamayo in 10 days from discharge. Knee immobilizer is to stay in place until follow up with Orthopedics, Dr. Tamayo - you had an antibiotic spacer placed at [facility], [place]. Please follow up with Dr. Caceres in two weeks - while here you had repair of a popliteal aneurysm via the placement of stents. It is very important that you take your Plavix, which has been provided to you in your prescriptions. Please take your Eliquis as prescribed for the lower extremity DVT. Please follow up with Dr. Chatman for management of your antibiotic regimen in 7 -10 days - arrangements have been made for you to have home IV antibiotics for the next 5 weeks (of Daptomycin 500 mg every 24 hours and Ciprofloxacin 400mg twice per day) Please follow up with your primary care physician, Dr. Reece in 7-10 days. You are to have weekly blood work performed for the next five weeks. Please see your primary care physician for this. The labs you should have done include CBC, CMP CRP, ESR, CPK weekly for the next 5 weeks. Home physical therapy has also been arranged for improving muscle strength. Discharge Exam - Head Exam Head Exam: ATRAUMATIC, NORMAL INSPECTION - Eye Exam Eye Exam: EOMI, Normal appearance Pupil Exam: NORMAL ACCOMODATION, PERRL - ENT Exam ENT Exam: Mucous Membranes Moist, Normal Exam - Neck Exam Neck exam: Full Rom, Normal Inspection - Respiratory Exam Respiratory Exam: NORMAL BREATHING PATTERN, UNREMARKABLE - Cardiovascular Exam Cardiovascular Exam: REGULAR RHYTHM, +S1, +S2 - GI/Abdominal Exam GI & Abdominal Exam: Normal Bowel Sounds, Unremarkable. absent: Distended, Firm , Guarding - Extremities Exam Extremities exam: tenderness (+warmth and tenderness to palpation behind the left knee), pedal pulses present - Neurological Exam Neurological exam: Alert, CN II-XII Intact, Normal Gait, Oriented x3, Reflexes Normal - Skin Skin Exam: Dry, Intact, Normal Color, Warm Additional comments: No pain or erythema over R wrist catheter insertion site. Discharge Plan - Discharge Medications Prescriptions: amLODIPine [Norvasc] 5 mg PO DAILY #30 tab Apixaban [Eliquis] 5 mg PO BID #60 tab Carvedilol [Coreg] 25 mg PO BID #60 tab Clopidogrel [Plavix] 75 mg PO DAILY #30 tab DAPTOmycin [Cubicin] 500 mg IV Q24H 35 Days vial Losartan [Cozaar] 50 mg PO DAILY #30 tab oxyCODONE [oxyCODONE Immediate Release Tab] 10 mg PO Q6 PRN 3 Days #20 tab PRN Reason: Pain, Moderate (4-7) oxyCODONE [oxyCONTIN Extended Release Tab] 20 mg PO Q12H 3 Days #10 tab Rosuvastatin Calcium [Crestor] 10 mg PO DAILY #30 tab - Follow Up Plan Condition: GOOD Disposition: HOME/ ROUTINE Instructions: Vitamin D Deficiency, Deep Vein Thrombosis (Blood Clots in the Legs) (DC), How to Prevent Blood Clots Additional Instructions: Patient cleared for discharge per Dr. Cornell Please return to ER if symptoms reoccur or worsen. Continue your medications as per your medication reconciliation. Please follow up with Orthopedics and Vascular surgery as an outpatient. Please follow up with Dr. Tamayo in 10 days from discharge. Knee immobilizer is to stay in place until follow up with Orthopedics, Dr. Tamayo - you had an antibiotic spacer placed at [facility], [place]. Please follow up with Dr. Caceres in two weeks - while here you had repair of a popliteal aneurysm via the placement of stents. It is very important that you take your Plavix, which has been provided to you in your prescriptions. Please take your Eliquis as prescribed for the lower extremity DVT. Please follow up with Dr. Chatman for management of your antibiotic regimen in 7 -10 days - arrangements have been made for you to have home IV antibiotics for the next 5 weeks (of Daptomycin 500 mg every 24 hours and Ciprofloxacin 400mg twice per day) Please follow up with your primary care physician, Dr. Reece in 7-10 days. You are to have weekly blood work performed for the next five weeks. Please see your primary care physician for this. The labs you should have done include CBC, CMP CRP, ESR, CPK weekly for the next 5 weeks. Home physical therapy has also been arranged for improving muscle strength. Referrals: Panda Reece MD [Primary Care Provider] - Fidencio Caceres Jr., MD [Staff Provider] - <Matias Cornell - Last Filed: 01/20/18 07:52> Provider - Provider Date of Admission: 01/11/18 23:17 Attending physician: Matias Cornell DO Primary care physician: Panda Reece MD Hospital Course - Lab Results Lab Results: Micro Results 01/16/18 16:19 Naris MRSA Culture (Admit) - Final MRSA NOT DETECTED Most Recent Lab Values WBC 10.1 K/uL (4.8-10.8) 01/19/18 06:23 RBC 3.28 Mil/uL (3.80-5.20) L 01/19/18 06:23 Hgb 9.6 g/dL (11.0-16.0) L 01/19/18 06:23 Hct 27.7 % (34.0-47.0) L 01/19/18 06:23 MCV 84.6 fL (81.0-99.0) 01/19/18 06:23 MCH 29.4 pg (27.0-31.0) 01/19/18 06:23 MCHC 34.7 g/dL (33.0-37.0) 01/19/18 06:23 RDW 15.0 % (11.5-14.5) H 01/19/18 06:23 Plt Count 270 K/uL (130-400) 01/19/18 06:23 MPV 10.2 fL (7.2-11.7) 01/19/18 06:23 Neut % (Auto) 68.4 % (50.0-75.0) 01/19/18 06:23 Lymph % (Auto) 17.0 % (20.0-40.0) L 01/19/18 06:23 [place] % (Auto) 11.7 % (0.0-10.0) H 01/19/18 06:23 Eos % (Auto) 2.2 % (0.0-4.0) 01/19/18 06:23 Baso % (Auto) 0.7 % (0.0-2.0) 01/19/18 06:23 Neut # (Auto) 6.9 K/uL (1.8-7.0) 01/19/18 06:23 Lymph # (Auto) 1.7 K/uL (1.0-4.3) 01/19/18 06:23 [place] # (Auto) 1.2 K/uL (0.0-0.8) H 01/19/18 06:23 Eos # (Auto) 0.2 K/uL (0.0-0.7) 01/19/18 06:23 Baso # (Auto) 0.1 K/uL (0.0-0.2) 01/19/18 06:23 ESR 45 mm/hr (0-20) H 01/13/18 07:11 PT 14.7 SECONDS (9.7-12.2) H 01/19/18 07:25 INR 1.3 01/19/18 07:25 APTT 34 SECONDS (21-34) D 01/19/18 07:25 Sodium 138 mmol/L (132-148) 01/19/18 06:23 Potassium 3.8 mmol/L (3.6-5.2) 01/19/18 06:23 Chloride 102 mmol/L (98-107) 01/19/18 06:23 Carbon Dioxide 29 mmol/L (22-30) 01/19/18 06:23 Anion Gap 11 (10-20) 01/19/18 06:23 BUN 6 mg/dL (7-17) L 01/19/18 06:23 Creatinine 0.6 mg/dL (0.7-1.2) L 01/19/18 06:23 Est GFR ( Amer) > 60 01/19/18 06:23 Est GFR (Non-Af Amer) > 60 01/19/18 06:23 Random Glucose 115 mg/dL (65-105) H 01/19/18 06:23 Calcium 9.3 mg/dl (8.6-10.4) 01/19/18 06:23 Phosphorus 3.0 mg/dL (2.5-4.5) 01/19/18 06:23 Magnesium 1.8 mg/dL (1.6-2.3) 01/19/18 06:32 Total Bilirubin 0.5 mg/dL (0.2-1.3) 01/17/18 06:41 AST 67 U/L (14-36) H 01/17/18 06:41 ALT 72 U/L (9-52) H 01/17/18 06:41 Alkaline Phosphatase 104 U/L (38-126) 01/17/18 06:41 Total Protein 6.6 g/dL (6.3-8.3) 01/17/18 06:41 Albumin 3.9 g/dL (3.5-5.0) 01/17/18 06:41 Globulin 2.7 gm/dL (2.2-3.9) 01/17/18 06:41 Albumin/Globulin Ratio 1.4 (1.0-2.1) 01/17/18 06:41 25-OH Vitamin D Total 13.0 NG/ML (30.0-100.0) L 01/18/18 05:51 Beta HCG, Quant < 2.39 mIU/ML 01/12/18 07:00 Urine HCG, Qual Negative (NEGATIVE) 01/16/18 22:22 Hepatitis A IgM Ab Negative (NEGATIVE) 01/14/18 08:10 Hep Bs Antigen Negative (NEGATIVE) 01/14/18 08:10 Hep B Core IgM Ab Negative (NEGATIVE) 01/14/18 08:10 Hepatitis C Antibody Negative (NEGATIVE) 01/14/18 08:10 Blood Type O POSITIVE 01/16/18 10:30 Antibody Screen Negative 01/16/18 10:30 Attending/Attestation - Attestation I have personally seen and examined this patient.: Yes I have fully participated in the care of the patient.: Yes I have reviewed all pertinent clinical information, including history, physical exam and plan: Yes Notes (Text): 01/20/18 07:52 Medical attending: Patient was seen and examined by me, agree with the above note by medical attendant. As mentioned previously this is a patient from [facility] while at [facility] she had removal of previous orthopedic hardware placed in a antibiotics of the left knee. While at [facility] was discovered that she had a left side large popliteal aneurysm. She was at [facility] for 8 days Because of this finding she was moved over to [facility] where we subsequently met her and took care of her. During this time she remained on IV antibiotics - IV Cipro, and IV daptomycin. She had placement of PICC line. On January 16 she underwent a OR to adress of this large popliteal aneurysm. She required a lot of pain control for this afterwards. On exam she had palpable tibialis posterior pulses, her feet were always warm that she did not have a loss of sensation of her feet she explained to us that the predominance of her pain was nearly at the knee. On 01/18 she was found to also have a DVT she per my discussion with surgery does not acquire a IVC filter since he was in a small branch of the veins in that area. It is recommended that the patient be on oral anticoagulation We emphasized to the patient that it is really important to take her medication in particular the Plavix. She had already had set up outpatient antibiotics to be done at her home. Infectious disease wished for the patient to continue with the IV daptomycin and Cipro for another 5 weeks. This had already been arranged for when the patient was at [facility]. The patient is aware that she needs to follow- up orthopedic surgery to address the antibiotics based that she still has. She' s can be having home physical therapy, continue with home IV antibiotics infusions. Later at night I was notified that there was a problem with the prescription of pain medication, I spoke with the pharmacy that they went to. The family member came back and we rewrote scripts said that she could have medication for pain control I wish her the best, she's been through quite a bit with her left knee, Matias Cornell
--- NOTE | 2018-01-19 11:16 | VASCLAB ---
Date of service: 01/18/2018 PROCEDURE: Lower Extremity Venous Duplex Exam. HISTORY: LLE swelling, r/o DVT PRIORS: None. TECHNIQUE: Bilateral common femoral, femoral, popliteal and posterior tibial, peroneal and great saphenous veins were evaluated. Flow was assessed with color Doppler, compressibility, assessment of phasic flow and augmentation response. Report prepared by Kwadwo Awan, CRYSTAL, RVT FINDINGS: RIGHT: 1. Common Femoral Vein: 1.1. Compressibility - Fully compressible: Thrombus - None : Flow - Phasic: Augmentation -Normal: Reflux - None. 2. Femoral Vein: 2.1. Compressibility - Fully compressible: Thrombus - None : Flow - Phasic: Augmentation -Normal: Reflux - None. 3. Popliteal Vein: 3.1. Compressibility - Fully compressible: Thrombus - None : Flow - Phasic: Augmentation -Normal: Reflux - None. 4. Posterior Tibial Vein: 4.1. Compressibility - Fully compressible: Thrombus - None: Flow - Phasic: Augmentation -Normal: Reflux - None. 5. Peroneal Vein: 5.1. Compressibility - Fully compressible: Thrombus - None: Flow - Phasic: Augmentation -Normal: Reflux - None. 6. Great Saphenous Vein: 6.1. Compressibility - Fully compressible: Thrombus - None: Flow - Phasic: Augmentation - Normal: Reflux - None. LEFT: 1. Common Femoral Vein: 1.1. Compressibility - Fully compressible: Thrombus - None: Flow - Phasic: Augmentation -Normal: Reflux - None. 2. Femoral Vein: 2.1. Compressibility - Fully compressible: Thrombus - None: Flow - Phasic: Augmentation -Normal: Reflux - None. 3. Popliteal Vein: 3.1. Compressibility - Fully compressible: Thrombus - None : Flow - Phasic: Augmentation -Normal: Reflux - None. 4. Posterior Tibial Vein: 4.1. Compressibility - Partial: Thrombus - Acute: Flow - Absent : Augmentation -None: Reflux - None. 5. Peroneal Vein: 5.1. Compressibility - Fully compressible: Thrombus - None: Flow - Phasic: Augmentation -Normal: Reflux - None. 6. Great Saphenous Vein: 6.1. Compressibility - Fully compressible: Thrombus - None: Flow - Phasic: Augmentation - Normal: Reflux - None. OTHER FINDINGS: PATRICIA Salas notified about the findings. IMPRESSION: Right: No evidence of deep or superficial vein thrombosis of the right lower extremity. Normal valve function noted of the right side. Left: Acute thrombosis of the left posterior tibial vein with severe reduction of the venous return.
--- NOTE | 2018-01-19 12:12 | CP.PCM.PN ---
Subjective - Date & Time of Evaluation Date of Evaluation: 01/19/18 Time of Evaluation: 14:22 - Subjective Subjective: Patient states she still has pain in the back of the knee. She continues to be non compliant with knee immobilizer (even new one) saying it is uncomfortable. Advised patient again risk of NV injury, pain, swelling, fall, fracture as knee is unstable and immobilizer is necessary at this time as per Dr. Tamayo. She verbalizes understanding. No new complaints. Objective - Vital Signs/Intake and Output Vital Signs (last 24 hours): Temp Pulse Resp BP Pulse Ox 98.9 F 82 16 144/88 99 01/19/18 04:00 01/19/18 08:00 01/19/18 08:00 01/19/18 09:20 01/19/18 08:00 Intake and Output: 01/19/18 01/19/18 06:59 18:59 Intake Total 550 Output Total 600 Balance -50 - Medications Medications: Current Medications Amlodipine Besylate (Norvasc) 5 mg PO DAILY [facility] Last Admin: 01/19/18 09:20 Dose: 5 mg Apixaban (Eliquis) 5 mg PO BID [facility] Last Admin: 01/19/18 09:24 Dose: 5 mg Bacitracin (Bacitracin) 1 ea TOP BID [facility] Last Admin: 01/19/18 09:20 Dose: 1 ea Calcium/Vitamin D (Oscal-D 250 Mg-125 Units Tab) 1 tab PO DAILY [facility] Last Admin: 01/19/18 09:20 Dose: 1 tab Carvedilol (Coreg) 25 mg PO BID [facility] Last Admin: 01/19/18 09:20 Dose: 25 mg Clopidogrel Bisulfate (Plavix) 75 mg PO DAILY [facility] Last Admin: 01/19/18 09:20 Dose: 75 mg Docusate Sodium (Colace) 100 mg PO TID [facility] Last Admin: 01/19/18 09:19 Dose: 100 mg Ergocalciferol (Drisdol 50,000 Intl Units Cap) 1 cap PO Q7D [facility] Last Admin: 01/18/18 15:36 Dose: 1 cap Ferrous Sulfate (Feosol) 325 mg PO TID [facility] Last Admin: 01/19/18 09:20 Dose: 325 mg Ciprofloxacin (Cipro 400mg/200ml Dsw) 400 mg in 200 mls @ 133 mls/hr IVPB Q12H [place] PRN Reason: Protocol Last Admin: 01/19/18 02:36 Dose: 133 mls/hr Daptomycin 500 mg/ Sodium (Chloride) 100 mls @ 100 mls/hr IV Q24H [place] PRN Reason: Protocol Stop: 01/23/18 15:31 Last Admin: 01/18/18 17:33 Dose: 100 mls/hr Lactobacillus Acidophilus (Bacid Acidophilus) 1 cap PO BID [facility] Last Admin: 01/19/18 09:19 Dose: 1 cap Losartan Potassium (Cozaar) 50 mg PO DAILY [facility] Last Admin: 01/19/18 09:20 Dose: 50 mg Morphine Sulfate (Morphine) 3 mg IVP Q3 PRN PRN Reason: Pain, severe (8-10) Last Admin: 01/18/18 11:26 Dose: 3 mg Oxycodone HCl (Oxycodone Immediate Release Tab) 10 mg PO Q6 PRN PRN Reason: Pain, moderate (4-7) Last Admin: 01/19/18 05:50 Dose: 10 mg Pantoprazole Sodium (Protonix Ec Tab) 40 mg PO DAILY [facility] Last Admin: 01/19/18 09:19 Dose: 40 mg Rosuvastatin Calcium (Crestor) 10 mg PO HS [facility] Last Admin: 01/18/18 21:48 Dose: 10 mg Zolpidem Tartrate (Ambien) 5 mg PO HS PRN PRN Reason: Insomnia Last Admin: 01/18/18 23:38 Dose: 5 mg - Labs Labs: 01/19/18 06:23 01/19/18 06:23 PT 14.7 SECONDS (9.7-12.2) H 01/19/18 07:25 INR 1.3 01/19/18 07:25 APTT 34 SECONDS (21-34) D 01/19/18 07:25 - Extremities Exam Additional comments: Left knee: incision intact, still swelling to LLE but not worse than yesterday, continued calf pain. +ROM ankle/toes, sensation intact +DP/PT pulses, no erythema Assessment and Plan (1) Infection of total left knee replacement Assessment & Plan: s/p POD#14 s/p explant/ab spacer placement +DVT left post tib vein elevate LLE at all times encourage AROM treat ment of DVT as per medical team cont antibiotics as per ID minimum 6 weeks f/u Dr. Tamayo 7-10 days call for appt maintain knee immobilizer, NWB LLE d/w Dr. Tamayo, notifed of DVT, agrees with above Status: Acute (2) Vitamin D deficiency Status: Acute (3) Acute deep vein thrombosis (DVT) of tibial vein of left lower extremity Assessment & Plan: anticoag as per medical team Status: Acute
[2018-01-19 15:40] VITALS: BP 144/63; PULSE 75; RESP 17
[2018-01-19] MEDS: DAPTOmycin 500 MG in Sodium Chloride 0.9% 100 ML IV SCH (16:06)
[2018-01-19 16:31] VITALS: TEMP 98.3; O2SAT 99
--- NOTE | 2018-01-19 18:29 | CP.PCM.DIS ---
Provider - Provider Date of Admission: 01/11/18 23:17 Attending physician: Matias Cornell DO Primary care physician: Panda Reece MD Time Spent in preparation of Discharge (in minutes): 45 Diagnosis - Discharge Diagnosis (1) Infection of total left knee replacement Status: Acute (2) Pseudoaneurysm Status: Acute Hospital Course - Lab Results Lab Results: Micro Results 01/16/18 16:19 Naris MRSA Culture (Admit) - Final MRSA NOT DETECTED Most Recent Lab Values WBC 10.1 K/uL (4.8-10.8) 01/19/18 06:23 RBC 3.28 Mil/uL (3.80-5.20) L 01/19/18 06:23 Hgb 9.6 g/dL (11.0-16.0) L 01/19/18 06:23 Hct 27.7 % (34.0-47.0) L 01/19/18 06:23 MCV 84.6 fL (81.0-99.0) 01/19/18 06:23 MCH 29.4 pg (27.0-31.0) 01/19/18 06:23 MCHC 34.7 g/dL (33.0-37.0) 01/19/18 06:23 RDW 15.0 % (11.5-14.5) H 01/19/18 06:23 Plt Count 270 K/uL (130-400) 01/19/18 06:23 MPV 10.2 fL (7.2-11.7) 01/19/18 06:23 Neut % (Auto) 68.4 % (50.0-75.0) 01/19/18 06:23 Lymph % (Auto) 17.0 % (20.0-40.0) L 01/19/18 06:23 [place] % (Auto) 11.7 % (0.0-10.0) H 01/19/18 06:23 Eos % (Auto) 2.2 % (0.0-4.0) 01/19/18 06:23 Baso % (Auto) 0.7 % (0.0-2.0) 01/19/18 06:23 Neut # (Auto) 6.9 K/uL (1.8-7.0) 01/19/18 06:23 Lymph # (Auto) 1.7 K/uL (1.0-4.3) 01/19/18 06:23 [place] # (Auto) 1.2 K/uL (0.0-0.8) H 01/19/18 06:23 Eos # (Auto) 0.2 K/uL (0.0-0.7) 01/19/18 06:23 Baso # (Auto) 0.1 K/uL (0.0-0.2) 01/19/18 06:23 ESR 45 mm/hr (0-20) H 01/13/18 07:11 PT 14.7 SECONDS (9.7-12.2) H 01/19/18 07:25 INR 1.3 01/19/18 07:25 APTT 34 SECONDS (21-34) D 01/19/18 07:25 Sodium 138 mmol/L (132-148) 01/19/18 06:23 Potassium 3.8 mmol/L (3.6-5.2) 01/19/18 06:23 Chloride 102 mmol/L (98-107) 01/19/18 06:23 Carbon Dioxide 29 mmol/L (22-30) 01/19/18 06:23 Anion Gap 11 (10-20) 01/19/18 06:23 BUN 6 mg/dL (7-17) L 01/19/18 06:23 Creatinine 0.6 mg/dL (0.7-1.2) L 01/19/18 06:23 Est GFR ( Amer) > 60 01/19/18 06:23 Est GFR (Non-Af Amer) > 60 01/19/18 06:23 Random Glucose 115 mg/dL (65-105) H 01/19/18 06:23 Calcium 9.3 mg/dl (8.6-10.4) 01/19/18 06:23 Phosphorus 3.0 mg/dL (2.5-4.5) 01/19/18 06:23 Magnesium 1.8 mg/dL (1.6-2.3) 01/19/18 06:32 Total Bilirubin 0.5 mg/dL (0.2-1.3) 01/17/18 06:41 AST 67 U/L (14-36) H 01/17/18 06:41 ALT 72 U/L (9-52) H 01/17/18 06:41 Alkaline Phosphatase 104 U/L (38-126) 01/17/18 06:41 Total Protein 6.6 g/dL (6.3-8.3) 01/17/18 06:41 Albumin 3.9 g/dL (3.5-5.0) 01/17/18 06:41 Globulin 2.7 gm/dL (2.2-3.9) 01/17/18 06:41 Albumin/Globulin Ratio 1.4 (1.0-2.1) 01/17/18 06:41 25-OH Vitamin D Total 13.0 NG/ML (30.0-100.0) L 01/18/18 05:51 Beta HCG, Quant < 2.39 mIU/ML 01/12/18 07:00 Urine HCG, Qual Negative (NEGATIVE) 01/16/18 22:22 Hepatitis A IgM Ab Negative (NEGATIVE) 01/14/18 08:10 Hep Bs Antigen Negative (NEGATIVE) 01/14/18 08:10 Hep B Core IgM Ab Negative (NEGATIVE) 01/14/18 08:10 Hepatitis C Antibody Negative (NEGATIVE) 01/14/18 08:10 Blood Type O POSITIVE 01/16/18 10:30 Antibody Screen Negative 01/16/18 10:30 - Hospital Course Hospital Course: HPI: Patient is a 52 year old female with a past medical history of HTN, HDL, and DJD presenting as a transfer from [facility]. Patient recently went to the OR with Dr. Tamayo on 01/05/2018 for removal of left knee hardware, I&D and placement of an antibiotic spacer. After the surgery, patient was experiencing pain and numbness located behind the knee and extending down the left leg. An ultrasound was ordered which was suspicious for a pseudoaneurysm in the popliteal fossa. Patient was transferred to [facility] for evaluation by Vascular Surgery Team. She is currently experiencing pain in the left leg with intermittent numbness but reports feeling well otherwise. Denies fevers, chills, nausea, vomiting, diarrhea, constipation, chest pain, shortness of breath, abdominal pain, diaphoresis or headaches. Hospital course: Vascular Surgery Consult was placed to Dr. 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 The largest aneurysm sac measures 2.7 x 2.2 cm. There is a smaller aneurysm sac measuring 2 x 1.5 cm. Popliteal artery is patent. - Patient scheduled for aneurysm repair (Balloon angioplasty with dye) on [address] Caceres and Dr. Avendano Infectious disease consult placed to Dr. Chatman on 01/12/2018 - As patient was started on Daptomycin at [place], patient will be continued on Daptomycin through scheduled end date of 01/17/2018. Patient had antibiotic spacer placed on 01/05/2018 - this should be remain in place x 8 weeks post op. Additionally patient will continue Bacitracin 1 cap PO BID and start Ciprofloxacin 400 mg IV q12h (day 1 - 01/12/2018). - 01/16/2018 - Procedure: Aneurysm injection, thrombectomy, and balloon angioplasty of [address] Caceres: Selective angiogram of the left popliteal artery was performed via the right side. US guided thrombin injection of PSA popliteal. 6x5 via bahn popliteal stent. Angiojet mechanical thrombectomy of all three tibial vessels and balloon angioplasty using a 2 mm balloon Post operative patient started on Plavix 75 mg PO qd by Dr. Caceres on 2017 Pain controlled with Morphine IV and Oxycodone PO during hospital stay HTN controlled during hospital stay with Amlodipine 5 mg PO qd, Carvedilol 25 mg PO BID, and Losartan 50 mg PO qd HLD controlled with Crestor 10 mg PO qd At time of discharge on 01/17/2018 patient is resting comfortably with no complaints. She denies dizziness, chest pain, headache, abdominal pain, palpitations, nausea, vomiting, diarrhea and shortness of breath. Has been tolerating PO since procedure without incident. Discharge Exam - Head Exam Head Exam: ATRAUMATIC, NORMAL INSPECTION Discharge Plan - Discharge Medications Prescriptions: amLODIPine [Norvasc] 5 mg PO DAILY #30 tab Apixaban [Eliquis] 5 mg PO BID #60 tab Carvedilol [Coreg] 25 mg PO BID #60 tab Clopidogrel [Plavix] 75 mg PO DAILY #30 tab DAPTOmycin [Cubicin] 500 mg IV Q24H 35 Days vial Losartan [Cozaar] 50 mg PO DAILY #30 tab oxyCODONE [oxyCODONE Immediate Release Tab] 10 mg PO Q6 PRN 3 Days #20 tab PRN Reason: Pain, Moderate (4-7) oxyCODONE [oxyCONTIN Extended Release Tab] 20 mg PO Q12H 3 Days #10 tab Rosuvastatin Calcium [Crestor] 10 mg PO DAILY #30 tab - Follow Up Plan Condition: GOOD Disposition: HOME/ ROUTINE Instructions: Vitamin D Deficiency, Deep Vein Thrombosis (Blood Clots in the Legs) (DC), How to Prevent Blood Clots Additional Instructions: Patient cleared for discharge per Dr. Cornell Please return to ER if symptoms reoccur or worsen. Continue your medications as per your medication reconciliation. Please follow up with Orthopedics and Vascular surgery as an outpatient. Please follow up with Dr. Tamayo in 10 days from discharge. Knee immobilizer is to stay in place until follow up with Orthopedics, Dr. Tamayo - you had an antibiotic spacer placed at [facility]. Please follow up with Dr. Caceres in two weeks - while here you had repair of a popliteal aneurysm via the placement of stents. It is very important that you take your Plavix, which has been provided to you in your prescriptions. Please take your Eliquis as prescribed for the lower extremity DVT. Please follow up with Dr. Chatman for management of your antibiotic regimen in 7 -10 days - arrangements have been made for you to have home IV antibiotics for the next 5 weeks (of Daptomycin 500 mg every 24 hours and Ciprofloxacin 400mg twice per day) Please follow up with your primary care physician, Dr. Reece in 7-10 days. You are to have weekly blood work performed for the next five weeks. Please see your primary care physician for this. The labs you should have done include CBC, CMP CRP, ESR, CPK weekly for the next 5 weeks. Home physical therapy has also been arranged for improving muscle strength. Referrals: Panad Reece MD [Primary Care Provider] - Fidencio Caceres Jr., MD [Staff Provider] -
== END 2018-01-19 17:15 | disposition home or self-care (01) | DRG 271 ==
LOC: C.3T 22:46 → INTOOBSV 22:46 → C.3T 23:03 → OBSVTOIN 23:17 → C.3T 01-13 02:50 → C.9S 01-16 14:26 → C.9I 01-16 15:17
PROVIDERS: ADMIT Hospitalist; ATTEND Hospitalist
PROC: 047S3ZZ Dilation of Left Posterior Tibial Artery, Percutaneous Approach (ICD-10-PCS; principal; 2018-01-16)
PROC: 04CQ3ZZ Extirpation of Matter from Left Anterior Tibial Artery, Percutaneous Approach (ICD-10-PCS; 2018-01-16)
PROC: 047Q3ZZ Dilation of Left Anterior Tibial Artery, Percutaneous Approach (ICD-10-PCS; 2018-01-16)
PROC: 047U3ZZ Dilation of Left Peroneal Artery, Percutaneous Approach (ICD-10-PCS; 2018-01-16)
PROC: 04CS3ZZ Extirpation of Matter from Left Posterior Tibial Artery, Percutaneous Approach (ICD-10-PCS; 2018-01-16)
PROC: 04CU3ZZ Extirpation of Matter from Left Peroneal Artery, Percutaneous Approach (ICD-10-PCS; 2018-01-16)
PROC: 3E05317 Introduction of Other Thrombolytic into Peripheral Artery, Percutaneous Approach (ICD-10-PCS; 2018-01-16)
PROC: B44GZZZ Ultrasonography of Left Lower Extremity Arteries (ICD-10-PCS; 2018-01-16)
PROC: B41G1ZZ Fluoroscopy of Left Lower Extremity Arteries using Low Osmolar Contrast (ICD-10-PCS; 2018-01-16)
DX: I72.4 Aneurysm of artery of lower extremity (principal); I82.442 Acute embolism and thrombosis of left tibial vein; T84.54XA Infection and inflammatory reaction due to internal left knee prosthesis, initial encounter; I10 Essential (primary) hypertension; J30.2 Other seasonal allergic rhinitis; E78.5 Hyperlipidemia, unspecified; M19.90 Unspecified osteoarthritis, unspecified site; Z96.652 Presence of left artificial knee joint; Z79.82 Long term (current) use of aspirin; Z86.79 Personal history of other diseases of the circulatory system; Z87.891 Personal history of nicotine dependence; Z91.19 Patient's noncompliance with other medical treatment and regimen

== ENCOUNTER 2018-02-14 19:46 | Inpatient (IN) | payer BC, OTHER ==
[2018-02-14 19:46] VITALS: BMI 34.2
[2018-02-14] MEDS ORDERED: Sodium Chloride 0.9% 1,000 ML IV ONE (21:38)
--- NOTE | 2018-02-14 21:42 | C.PDOC ---
History Of Present Illness 52 year old female presents to the ED c/o vomiting and diarrhea. Patient states she was sent in to the ED by Dr. Chatman for admission for low blood count. Patient denies fever, chills. black stools, blood in stool, rash, weakness, n umbness. Chief Complaint (Nursing): Abdominal Pain History Per: Patient History/Exam Limitations: no limitations Onset/Duration Of Symptoms: Days Current Symptoms Are (Timing): Still Present Location Of Pain/Discomfort: Diffuse Radiation Of Pain To:: None Quality Of Discomfort: "Pain" Associated Symptoms: Vomiting, Diarrhea Exacerbating Factors: None Alleviating Factors: None Recent travel outside of the [place]: No Additional History Per: Patient Abnormal Vaginal Bleeding: No Past Medical History Reviewed: Historical Data, Nursing Documentation, Vital Signs Vital Signs: Last Vital Signs Temp 98.7 F 02/14/18 20:35 Pulse 67 02/14/18 20:35 Resp 20 02/14/18 20:35 BP 110/68 02/14/18 20:35 Pulse Ox 99 02/14/18 20:35 - Medical History PMH: HTN, Hypercholesterolemia, Migraine Denies: Cardia Arrhythmia, CHF, Mitral Valve Prolapse, Peripheral Edema, Chronic Kidney Disease Surgical History: No Surg Hx - [facility] Procedures ASPIRAT CURET-PREG TERMI (03/11/02) DILATION OF LEFT ANTERIOR TIBIAL ARTERY, PERC APPROACH (01/11/18) DILATION OF LEFT PERONEAL ARTERY, PERCUTANEOUS APPROACH (01/11/18) DILATION OF LEFT POSTERIOR TIBIAL ARTERY, PERC APPROACH (01/11/18) EXCISION OF LEFT KNEE JOINT, OPEN APPROACH (01/05/18) EXTIRPATION OF MATTER FROM L ANT TIB ART, PERC APPROACH (01/11/18) EXTIRPATION OF MATTER FROM L PERONEAL ART, PERC APPROACH (01/11/18) EXTIRPATION OF MATTER FROM L POST TIB ART, PERC APPROACH (01/11/18) FLUOROSCOPY OF L LOW EXTREM ART USING L OSM CONTRAST (01/11/18) FLUOROSCOPY OF SUPERIOR VENA CAVA, GUIDANCE (01/05/18) INSERTION OF INFUSION DEV INTO SUP VENA CAVA, PERC APPROACH (01/05/18) INSERTION OF SPACER INTO LEFT KNEE JOINT, OPEN APPROACH (01/05/18) INTRODUCE OF OTH THROMBOLYTIC INTO PERIPH ART, PERC APPROACH (01/11/18) INTRODUCE OTH ANTI-INFECT IN CENTRAL VEIN, PERC (01/05/18) REMOVAL OF SYNTH SUB FROM L KNEE JT, OPEN APPROACH (01/05/18) REVISION OR RELOCATION OF CARDIAC DEVICE POCKET (09/24/14) TRANSFUSE NONAUT RED BLOOD CELLS IN PERIPH VEIN, PERC (01/05/18) ULTRASONOGRAPHY OF LEFT LOWER EXTREMITY ARTERIES (01/11/18) Family History: States: Unknown Family Hx - Social History Hx Alcohol Use: No Hx Substance Use: No - Immunization History Hx Tetanus Toxoid Vaccination: No Hx Influenza Vaccination: No Hx Pneumococcal Vaccination: No Review Of Systems Constitutional: Negative for: Fever, Chills Cardiovascular: Negative for: Chest Pain Respiratory: Negative for: Shortness of Breath Gastrointestinal: Positive for: Vomiting, Diarrhea. Negative for: Melena, Hematochezia Skin: Negative for: Rash Neurological: Negative for: Weakness, Numbness Physical Exam - Physical Exam Appears: Non-toxic, No Acute Distress Skin: Normal Color, Warm, Dry Head: Atraumatic, Normacephalic Eye(s): bilateral: Conjunctiva Pale Oral Mucosa: Moist Neck: Normal ROM, Supple Chest: Symmetrical Cardiovascular: Rhythm Regular Respiratory: Normal Breath Sounds, No Rales, No Rhonchi, No Wheezing Gastrointestinal/Abdominal: Soft, No Tenderness, No Guarding, No Rebound Extremity: Normal ROM, No Tenderness, No Swelling Neurological/Psych: Oriented x3, Normal Speech, Normal Cognition Gait: Steady ED Course And Treatment - Laboratory Results Result Diagrams: 02/14/18 22:00 02/14/18 22:00 O2 Sat by Pulse Oximetry: 99 (ON RA) Pulse Ox Interpretation: Normal Medical Decision Making Medical Decision Making: Plan: * Labs * Iv fluids * UA Dr Chatman called regarding the patient. Dr. Reece called and accepted the patient for admission. Dr. Reece informed he was on the blue list, wished the patient to be under Dr. Harris Disposition Discussed With : Panda Reece Doctor Will See Patient In The: Hospital Counseled Patient/Family Regarding: Diagnosis - Disposition Disposition: HOSPITALIZED Disposition Time: 23:21 Condition: STABLE Forms: [facility] (Malawian) - POA Present On Arrival: None - Clinical Impression Clinical Impression: Anemia, PICC (peripherally inserted central catheter) in place, Recurrent epistaxis - Scribe Statement The provider has reviewed the documentation as recorded by the Scribe Juanito Moreira All medical record entries made by the Kadenibdallas were at my direction and personally dictated by me. I have reviewed the chart and agree that the record accurately reflects my personal performance of the history, physical exam, medical decision making, and the department course for this patient. I have also personally directed, reviewed, and agree with the discharge instructions and disposition.
[2018-02-14 22:04] LABS: BASO # 0.1 K/uL (0.0-0.2); BASO % 0.7 % (0.0-2.0); LYMPH # 1.4 K/uL (1.0-4.3); NRBC % 0.1 % (0.0-2.0)
[2018-02-14 22:15] LABS: INR 1.4
[2018-02-14 22:28] LABS: EOS # 0.3 K/uL (0.0-0.7); EOS % 4.2 % (0.0-4.0); HEMOGLOBIN 9.8 g/dL (11.0-16.0); MEAN CORPUSCULAR HEMOGLOBIN 28.5 pg (27.0-31.0); MEAN CORPUSCULAR HGB CONC 34.8 g/dL (33.0-37.0); MONO # 0.9 K/uL (0.0-0.8); MONO % 11.3 % (0.0-10.0); NEUT # 5.1 K/uL (1.8-7.0); NEUT % 65.8 % (50.0-75.0); RBC 3.42 Mil/uL (3.80-5.20); RED CELL DISTRIBUTION WIDTH 14.3 % (11.5-14.5); WHITE BLOOD COUNT 7.7 K/uL (4.8-10.8)
[2018-02-14 22:30] LABS: ALB/GLOB RATIO 1.3 (1.0-2.1); ALBUMIN 3.9 g/dL (3.5-5.0); ALT/SGPT 33 U/L (9-52); AST/SGOT 34 U/L (14-36); BLOOD UREA NITROGEN 13 mg/dL (7-17); CALCIUM 9.6 mg/dl (8.6-10.4); GFR NON-AFRICAN AMERICAN 52; MEAN CELL VOLUME 81.9 fL (81.0-99.0)
[2018-02-15 00:38] LABS: SQUAMOUS EPITHIAL 6 /hpf (0-5); URINE BACTERIA RARE (<OCC); URINE BILIRUBIN NEGATIVE (NEGATIVE); URINE BLOOD NEGATIVE (NEGATIVE); URINE CLARITY Hazy (Clear); URINE COLOR Yellow (YELLOW); URINE GLUCOSE (UA) NORMAL (Normal); URINE LEUKOCYTE ESTERASE TRACE Leu/uL (Negative); URINE PROTEIN NEGATIVE (NEGATIVE); URINE UROBILINOGEN NORMAL mg/dL (0.2-1.0)
[2018-02-15] MEDS ORDERED: oxyCODONE 5 mg Immediate Release Tab ONE (02:49)
[2018-02-15] MEDS: oxyCODONE 5 mg Immediate Release Tab PO PRN ×4 (02:52→22:39)
[2018-02-15] MEDS: Ciprofloxacin 400mg/200ml D5W 400 MG/200 ML BAG IVPB SCH ×2 (09:37→22:43)
--- NOTE | 2018-02-15 12:43 | RAD ---
Date of service: 02/15/2018 PROCEDURE: CHEST RADIOGRAPH, 1 VIEW HISTORY: evaluate piccline placement COMPARISON: 09/12/2017 FINDINGS: LUNGS: Clear. PLEURA: No pneumothorax or pleural fluid seen. CARDIOVASCULAR: PICC line tip in the SVC inserted via right-sided approach. OSSEOUS STRUCTURES: No significant abnormalities. VISUALIZED UPPER ABDOMEN: Normal. OTHER FINDINGS: None. IMPRESSION: No adverse findings following PICC line placement. The PICC line is in the SVC.
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
--- NOTE | 2018-02-15 16:55 | RAD ---
Date of service: 02/15/2018 HISTORY: New Left PICC Line insertion COMPARISON: 02/15/2018 at 1226 hr FINDINGS: LUNGS: No interval consolidation noted. PLEURA: No significant pleural effusion identified, no pneumothorax apparent. CARDIOVASCULAR: Borderline heart enlargement. Central pulmonary venous congestion also borderline increased. Extrinsic cardiac the monitoring device in place over left chest The prior right PICC line has been removed. There is a left subclavian PICC line inserted with the tip in the cavoatrial junction. OSSEOUS STRUCTURES: No significant abnormalities. VISUALIZED UPPER ABDOMEN: Normal. OTHER FINDINGS: None. IMPRESSION: Right subclavian line removed. Interval left subclavian line inserted tip as above. No gross pneumothorax seen.
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
[2018-02-16] MEDS: oxyCODONE 5 mg Immediate Release Tab PO PRN (05:53)
[2018-02-16 06:33] LABS: BASO # 0.1 K/uL (0.0-0.2); EOS # 0.3 K/uL (0.0-0.7); EOS % 5.2 % (0.0-4.0); HEMOGLOBIN 9.5 g/dL (11.0-16.0); LYMPH # 1.1 K/uL (1.0-4.3); LYMPH % 16.9 % (20.0-40.0); MEAN CELL VOLUME 82.1 fL (81.0-99.0); MEAN CORPUSCULAR HEMOGLOBIN 27.3 pg (27.0-31.0); MEAN CORPUSCULAR HGB CONC 33.3 g/dL (33.0-37.0); MEAN PLATELET VOLUME 9.9 fL (7.2-11.7); MONO # 0.8 K/uL (0.0-0.8); MONO % 11.5 % (0.0-10.0); NEUT # 4.4 K/uL (1.8-7.0); NEUT % 65.4 % (50.0-75.0); RBC 3.48 Mil/uL (3.80-5.20); RED CELL DISTRIBUTION WIDTH 14.2 % (11.5-14.5); WHITE BLOOD COUNT 6.7 K/uL (4.8-10.8)
[2018-02-16 07:13] LABS: ALB/GLOB RATIO 1.2 (1.0-2.1); ALBUMIN 3.5 g/dL (3.5-5.0); ALT/SGPT 36 U/L (9-52); AST/SGOT 33 U/L (14-36); BLOOD UREA NITROGEN 10 mg/dL (7-17); CALCIUM 9.3 mg/dl (8.6-10.4); GFR NON-AFRICAN AMERICAN 58
[2018-02-16 07:47] LABS: CK-MB 0.45 ng/mL (0.0-3.38); TROPONIN I 0.015 ng/mL (0.00-0.120)
[2018-02-16] MEDS: Ciprofloxacin 400mg/200ml D5W 400 MG/200 ML BAG IVPB SCH (09:33)
[2018-02-16] MEDS: Potassium Chloride 10 mEq ER Tab PO SCH (11:24)
[2018-02-16] MEDS: oxyCODONE 5 mg Immediate Release Tab PO SCH ×2 (11:24→19:05)
--- NOTE | 2018-02-16 15:51 | CP.PCM.PN ---
Subjective - Date & Time of Evaluation Date of Evaluation: 02/16/18 Time of Evaluation: 08:00 - Subjective Subjective: c/o pain in chest denies cough or sob troponins neg seen by cardio await ID follow up cont rx for OM left knee s/p Left TKR complicated by vascular events cont DVT prx as per cardio Objective - Vital Signs/Intake and Output Vital Signs (last 24 hours): Temp Pulse Resp BP Pulse Ox 99.1 F 72 20 127/76 99 02/16/18 07:00 02/16/18 07:00 02/16/18 07:00 02/16/18 10:17 02/16/18 07:00 - Medications Medications: Current Medications Amlodipine Besylate (Norvasc) 5 mg PO DAILY [facility] Last Admin: 02/16/18 09:30 Dose: 5 mg Apixaban (Eliquis) 5 mg PO BID [facility] Last Admin: 02/16/18 09:30 Dose: 5 mg Carvedilol (Coreg) 25 mg PO BID [facility] Last Admin: 02/16/18 10:17 Dose: 25 mg Clopidogrel Bisulfate (Plavix) 75 mg PO DAILY [facility] Last Admin: 02/16/18 09:30 Dose: 75 mg Ciprofloxacin (Cipro 400mg/200ml Dsw) 400 mg in 200 mls @ 133 mls/hr IVPB Q12H [facility]; Protocol Last Admin: 02/16/18 09:33 Dose: 133 mls/hr Vancomycin HCl 1,000 mg/ (Sodium Chloride) 250 mls @ 166.6 mls/hr IVPB Q12H [facility]; Protocol Last Admin: 02/16/18 06:18 Dose: 166.6 mls/hr Losartan Potassium (Cozaar) 50 mg PO DAILY [facility] Last Admin: 02/16/18 09:30 Dose: 50 mg Oxycodone HCl (Oxycodone Immediate Release Tab) 15 mg PO Q6 [facility] Last Admin: 02/16/18 11:24 Dose: 15 mg Potassium Chloride (Klor-Con 10) 20 meq PO DAILY [facility] Stop: 02/18/18 10:01 Last Admin: 02/16/18 11:24 Dose: 20 meq - Labs Labs: 02/16/18 06:18 02/16/18 06:18 PT 15.0 SECONDS (9.7-12.2) H 02/14/18 22:00 INR 1.4 02/14/18 22:00 APTT 41 SECONDS (21-34) H 02/14/18 22:00 - Constitutional Appears: Non-toxic, Chronically Ill - Head Exam Head Exam: NORMOCEPHALIC - Eye Exam Eye Exam: PERRL - ENT Exam ENT Exam: Mucous Membranes Dry - Neck Exam Neck Exam: absent: Lymphadenopathy - Respiratory Exam Respiratory Exam: Decreased Breath Sounds - Cardiovascular Exam Cardiovascular Exam: REGULAR RHYTHM - GI/Abdominal Exam GI & Abdominal Exam: Distended, Soft - Rectal Exam Rectal Exam: Deferred - Exam Exam: NORMAL INSPECTION - Extremities Exam Extremities Exam: absent: Pedal Edema - Back Exam Back Exam: absent: CVA tenderness (L), CVA tenderness (R) - Neurological Exam Neurological Exam: Alert, Awake, Oriented x3 Neuro motor strength exam: Left Upper Extremity: 5, Right Upper Extremity: 5, Left Lower Extremity: 5, Right Lower Extremity: 5 - Psychiatric Exam Psychiatric exam: Depressed - Skin Skin Exam: Dry Additional comments: left knee in brace Assessment and Plan (1) Anemia Status: Acute (2) PICC (peripherally inserted central catheter) in place Status: Acute (3) Recurrent epistaxis Status: Acute (4) Osteomyelitis Status: Acute (5) History of total left knee replacement (TKR) Status: Acute (6) Infection of total left knee replacement Status: Acute - Assessment and Plan (Free Text) Assessment: cont iv rx as per Dr Chatman await ID follow up cont rx for OM left knee s/p Left TKR complicated by vascular events cont DVT prx as per cardio
--- NOTE | 2018-02-16 16:45 | CP.PCM.PN ---
Subjective - Date & Time of Evaluation Date of Evaluation: 02/16/18 Time of Evaluation: 15:00 - Subjective Subjective: dictated Objective - Vital Signs/Intake and Output Vital Signs (last 24 hours): Temp Pulse Resp BP Pulse Ox 99.1 F 72 20 127/76 99 02/16/18 07:00 02/16/18 07:00 02/16/18 07:00 02/16/18 10:17 02/16/18 07:00 - Medications Medications: Current Medications Amlodipine Besylate (Norvasc) 5 mg PO DAILY [facility] Last Admin: 02/16/18 09:30 Dose: 5 mg Apixaban (Eliquis) 5 mg PO BID [facility] Last Admin: 02/16/18 09:30 Dose: 5 mg Carvedilol (Coreg) 25 mg PO BID [facility] Last Admin: 02/16/18 10:17 Dose: 25 mg Clopidogrel Bisulfate (Plavix) 75 mg PO DAILY [facility] Last Admin: 02/16/18 09:30 Dose: 75 mg Vancomycin HCl 1,000 mg/ (Sodium Chloride) 250 mls @ 166.6 mls/hr IVPB Q12H [facility]; Protocol Last Admin: 02/16/18 06:18 Dose: 166.6 mls/hr Losartan Potassium (Cozaar) 50 mg PO DAILY [facility] Last Admin: 02/16/18 09:30 Dose: 50 mg Oxycodone HCl (Oxycodone Immediate Release Tab) 15 mg PO Q6 [facility] Last Admin: 02/16/18 11:24 Dose: 15 mg Potassium Chloride (Klor-Con 10) 20 meq PO DAILY [facility] Stop: 02/18/18 10:01 Last Admin: 02/16/18 11:24 Dose: 20 meq Potassium Chloride (K-Dur 20 Meq Er Tab) 20 meq PO DAILY [facility] - Labs Labs: 02/16/18 06:18 02/16/18 06:18 PT 15.0 SECONDS (9.7-12.2) H 02/14/18 22:00 INR 1.4 02/14/18 22:00 APTT 41 SECONDS (21-34) H 02/14/18 22:00
[2018-02-16] MEDS: Potassium Chloride 20 mEq ER Tab PO SCH (16:53)
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
[2018-02-16] MEDS: Lactobacillus Acidophilus 500 MU Cap PO SCH (19:04)
[2018-02-16] MEDS: Meropenem 1 GM in Sodium Chloride 0.9% 100 ML IVPB SCH (19:37)
[2018-02-16] MEDS: POLYETHYLENE GLYCOL 3350 17 GM/Dose PACKET PO SCH (21:28)
[2018-02-16 21:29] LABS: IRON 32 ug/dL (37-170)
[2018-02-16 21:38] LABS: % IRON SATURATION 10 (20-55); TOTAL IRON BINDING CAPACITY 312 ug/dL (250-450)
--- NOTE | 2018-02-16 22:41 | PN ---
DATE: 02/15/2018 SUBJECTIVE: The patient does complain of some pain. She states she got up today and said when she was getting up, she felt some pain in the left arm. She has a PICC line on left arm and soon after, she had some palpitation. She complains of pain, retrosternal. She is awake and alert, was drowsy, arousable. She states the epistaxis was not from small area in the front. She had epistaxis three days in a row, so I have decided to change the Cipro to meropenem, may be react more with Eliquis. Dr. Funk has also been called in. I will get an ENT to look into her bleeding epistaxis as she is going to be on blood thinner. She has a history of DVT. She still complains of left leg knee pain and pain posterior to the knee. 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 She also had a duplex scan of lower extremity on 02/09/2018. I will just look up that report at this time. She has a left common fully compressible thrombus, non-flow phasic, mentation normal, reflex none. Impression is no evidence of deep or superficial vein thrombosis of left lower extremity with excellent venous flow, normal valve function noted of the left side, normal venous flow noted in the right common femoral, she had no thrombus here. Right now, we will put her on telemetry also to get an ENT eval if possible. Today is Monday and it is a long weekend. PHYSICAL EXAMINATION: VITAL SIGNS: T-max is 99.1, pulse 72, blood pressure 115/65, respirations are 20. HEENT: Head is atraumatic, normocephalic. Pallor present. NECK: Supple. LUNGS: Clear. HEART: S1 and S2, regular. ABDOMEN: Soft, nontender. No guarding, no rigidity present. EXTREMITIES: Left knee, she has a soft immobilizer present. She complains of pain behind the knee and swelling, but I looked at it and there is no cellulitis, no signs of infection except just increased warmth. The foot is unremarkable while she is on bed. May be on immobilizing, she gets edema. Right now, the foot has no swelling. Right leg is unremarkable. LABORATORY DATA: White count is 6.7, hemoglobin 9.5, hematocrit 28.6, platelet count is 200. Potassium is 3.2. ASSESSMENT AND PLAN: So I want to see if it was supplemented. She got 40 units and the fluid has been discontinued. The other point was that her vancomycin level was peak, it was 56 as outpatient and trough was 16.6 or something 16. So at that point, I was looking to decrease the dose because peak was high, but now I see that it came out low. I am not sure what to consider, so I am just going to follow the trough and will get vancomycin trough tomorrow. We will follow with the other consultants. Plan was discussed with Dr. Harris. Talha Chatman MD
[2018-02-17] MEDS: Meropenem 1 GM in Sodium Chloride 0.9% 100 ML IVPB SCH ×3 (02:10→19:30)
[2018-02-17] MEDS: oxyCODONE 30 mg Immediate Release Tab PO PRN ×2 (02:14→15:30)
--- NOTE | 2018-02-17 03:14 | CON ---
DATE: 02/16/2018 REASON FOR CONSULTATION: Epistaxis. REQUESTING PHYSICIAN: Kwadwo Harris MD HISTORY: This is a 52-year-old female with a 5-day history of epistaxis on and off on the left, mild to moderate in intensity. The patient has not bled in two days. No pain. No nasal congestion. PAST MEDICAL HISTORY: As noted in the chart by me. MEDICATIONS: As noted in the chart by me, including Eliquis. ALLERGIES: NO KNOWN DRUG ALLERGIES. PHYSICAL EXAMINATION: HEAD: Atraumatic and normocephalic. FACE: Good facial movements bilaterally. CONSTITUTIONAL: Well fed, well nourished. COMMUNICATION: Communicates well and appropriately. EXTERNAL NOSE AND EARS: No masses, no lesions, no erythema, no edema. INTERNAL NOSE: Deviated septum. No bleeding areas in the nose. No masses, no lesions, no erythema, no edema. ORAL CAVITY AND OROPHARYNX: No masses, no lesions, no erythema, no edema. LIPS AND GUMS: No masses, no lesions, no erythema, no edema. NECK: Supple. THYROID: No thyromegaly. No goiter. LYMPH NODES: No lymphadenopathy of the neck. ASSESSMENT: 1. Epistaxis, resolved. 2. Deviated septum. PLAN: Keep nose moist using bacitracin. Tarik Perez MD
[2018-02-17 07:13] LABS: BASO % 0.8 % (0.0-2.0); EOS # 0.3 K/uL (0.0-0.7); EOS % 4.9 % (0.0-4.0); HEMOGLOBIN 9.1 g/dL (11.0-16.0); LYMPH # 1.3 K/uL (1.0-4.3); LYMPH % 22.6 % (20.0-40.0); MEAN CELL VOLUME 82.4 fL (81.0-99.0); MEAN CORPUSCULAR HEMOGLOBIN 27.4 pg (27.0-31.0); MEAN CORPUSCULAR HGB CONC 33.3 g/dL (33.0-37.0); MEAN PLATELET VOLUME 10.4 fL (7.2-11.7); MONO # 0.9 K/uL (0.0-0.8); NEUT # 3.1 K/uL (1.8-7.0); NEUT % 55.7 % (50.0-75.0); NRBC % 0.1 % (0.0-2.0); RBC 3.3 Mil/uL (3.80-5.20); RED CELL DISTRIBUTION WIDTH 14.3 % (11.5-14.5); WHITE BLOOD COUNT 5.6 K/uL (4.8-10.8)
[2018-02-17 07:27] LABS: CALCIUM 9.2 mg/dl (8.6-10.4)
[2018-02-17 08:05] LABS: FERRITIN 65.5 ng/mL
[2018-02-17] MEDS: Lactobacillus Acidophilus 500 MU Cap PO SCH ×2 (10:00→18:35)
[2018-02-17] MEDS: Potassium Chloride 10 mEq ER Tab PO SCH (11:23)
[2018-02-17] MEDS: Potassium Chloride 20 mEq ER Tab PO SCH (11:24)
--- NOTE | 2018-02-17 14:19 | CP.PCM.PN ---
Subjective - Date & Time of Evaluation Date of Evaluation: 02/17/18 Time of Evaluation: 14:00 - Subjective Subjective: dictated Objective - Vital Signs/Intake and Output Vital Signs (last 24 hours): Temp Pulse Resp BP Pulse Ox 98.5 F 62 20 108/60 100 02/17/18 07:15 02/17/18 07:15 02/17/18 07:15 02/17/18 11:24 02/17/18 07:15 - Medications Medications: Current Medications Amlodipine Besylate (Norvasc) 5 mg PO DAILY [facility] Last Admin: 02/17/18 11:23 Dose: 5 mg Apixaban (Eliquis) 5 mg PO BID [facility] Last Admin: 02/17/18 11:24 Dose: 5 mg Carvedilol (Coreg) 25 mg PO BID [facility] Last Admin: 02/17/18 11:24 Dose: 25 mg Clopidogrel Bisulfate (Plavix) 75 mg PO DAILY [facility] Last Admin: 02/17/18 11:22 Dose: 75 mg Vancomycin HCl 1,000 mg/ (Sodium Chloride) 250 mls @ 166.6 mls/hr IVPB Q12H [facility]; Protocol Last Admin: 02/17/18 05:47 Dose: 166.6 mls/hr Meropenem 1 gm/ Sodium (Chloride) 100 mls @ 100 mls/hr IVPB Q8H [facility]; Protocol Last Admin: 02/17/18 11:31 Dose: 100 mls/hr Lactobacillus Acidophilus (Bacid Acidophilus) 1 cap PO BID [facility] Last Admin: 02/16/18 19:04 Dose: 1 cap Losartan Potassium (Cozaar) 50 mg PO DAILY [facility] Last Admin: 02/17/18 11:23 Dose: 50 mg Oxycodone HCl (Oxycodone Immediate Release Tab) 30 mg PO Q8H PRN PRN Reason: Pain, moderate (4-7) Last Admin: 02/17/18 02:14 Dose: 30 mg Polyethylene Glycol (Miralax) 17 gm PO HS [facility] Last Admin: 02/16/18 21:28 Dose: 17 gm Potassium Chloride (Klor-Con 10) 20 meq PO DAILY [facility] Stop: 02/18/18 10:01 Last Admin: 02/17/18 11:23 Dose: 20 meq Potassium Chloride (K-Dur 20 Meq Er Tab) 20 meq PO DAILY [facility] Last Admin: 02/17/18 11:24 Dose: 20 meq - Labs Labs: 02/17/18 07:03 02/17/18 07:03 PT 15.0 SECONDS (9.7-12.2) H 02/14/18 22:00 INR 1.4 02/14/18 22:00 APTT 41 SECONDS (21-34) H 02/14/18 22:00
--- NOTE | 2018-02-17 16:08 | CP.PCM.PN ---
Subjective - Date & Time of Evaluation Date of Evaluation: 02/17/18 Time of Evaluation: 14:00 - Subjective Subjective: dictated Objective - Vital Signs/Intake and Output Vital Signs (last 24 hours): Temp Pulse Resp BP Pulse Ox 98.5 F 62 20 108/60 100 02/17/18 07:15 02/17/18 07:15 02/17/18 07:15 02/17/18 11:24 02/17/18 07:15 - Medications Medications: Current Medications Amlodipine Besylate (Norvasc) 5 mg PO DAILY [facility] Last Admin: 02/17/18 11:23 Dose: 5 mg Apixaban (Eliquis) 5 mg PO BID [facility] Last Admin: 02/17/18 11:24 Dose: 5 mg Carvedilol (Coreg) 25 mg PO BID [facility] Last Admin: 02/17/18 11:24 Dose: 25 mg Clopidogrel Bisulfate (Plavix) 75 mg PO DAILY [facility] Last Admin: 02/17/18 11:22 Dose: 75 mg Vancomycin HCl 1,000 mg/ (Sodium Chloride) 250 mls @ 166.6 mls/hr IVPB Q12H [facility]; Protocol Last Admin: 02/17/18 05:47 Dose: 166.6 mls/hr Meropenem 1 gm/ Sodium (Chloride) 100 mls @ 100 mls/hr IVPB Q8H [facility]; Protocol Last Admin: 02/17/18 11:31 Dose: 100 mls/hr Lactobacillus Acidophilus (Bacid Acidophilus) 1 cap PO BID [facility] Last Admin: 02/16/18 19:04 Dose: 1 cap Losartan Potassium (Cozaar) 50 mg PO DAILY [facility] Last Admin: 02/17/18 11:23 Dose: 50 mg Oxycodone HCl (Oxycodone Immediate Release Tab) 30 mg PO Q8H PRN PRN Reason: Pain, moderate (4-7) Last Admin: 02/17/18 02:14 Dose: 30 mg Polyethylene Glycol (Miralax) 17 gm PO HS [facility] Last Admin: 02/16/18 21:28 Dose: 17 gm Potassium Chloride (Klor-Con 10) 20 meq PO DAILY [facility] Stop: 02/18/18 10:01 Last Admin: 02/17/18 11:23 Dose: 20 meq Potassium Chloride (K-Dur 20 Meq Er Tab) 20 meq PO DAILY [facility] Last Admin: 02/17/18 11:24 Dose: 20 meq - Labs Labs: 02/17/18 07:03 02/17/18 07:03 PT 15.0 SECONDS (9.7-12.2) H 02/14/18 22:00 INR 1.4 02/14/18 22:00 APTT 41 SECONDS (21-34) H 02/14/18 22:00
--- NOTE | 2018-02-17 20:37 | PN ---
DATE: 02/17/2018 SUBJECTIVE: The patient remains afebrile. She denies any chest pain, no shortness of breath. No more epistaxis. Her left knee still remains swollen with swelling of the feet. She has a immobilizer on. She is looking little better. PHYSICAL EXAMINATION: VITAL SIGNS: T-max is 98.5, pulse 62, blood pressure 169/64, respirations are 20. HEENT: Head is atraumatic, normocephalic. NECK: Supple. LUNGS: Clear. HEART: S1 and S2 are regular. ABDOMEN: Soft, nontender. No guarding, no rigidity present. EXTREMITIES: Left leg appears unremarkable. Her PICC line on the left side she says, they are not able to draw blood, but I told her if they are able to infuse the antibiotics, then that is fine. I have changed the antibiotics from Cipro to meropenem. LABORATORY DATA: White count is 5.6, hemoglobin 9.9, hematocrit 27.2, platelet count is 177. The patient's chest x-ray was done, left subclavian line removed, interval left subclavian line inserted, tip as above. No gross pneumothorax with the tip in the cavoatrial junction. ASSESSMENT AND PLAN: So, at this time, the patient's chest pain has decreased, epistaxis has decreased and she was seen by Dr. Kiser. She has anemia which is being monitored and once she gets cleared, we would want to reinstate her antibiotics which she is getting for the infection. At this time, she will be on vancomycin and meropenem. I repeated trough today and trough was 17.7, so we will leave the antibiotics as such. She did have Acinetobacter in the left knee and has a spacer at this time and is waiting further eval by the orthopedist when she is done with her antibiotics. Talha Chatman MD
[2018-02-17] MEDS: POLYETHYLENE GLYCOL 3350 17 GM/Dose PACKET PO SCH (21:22)
[2018-02-18] MEDS: oxyCODONE 30 mg Immediate Release Tab PO PRN ×3 (00:09→19:53)
[2018-02-18] MEDS: Meropenem 1 GM in Sodium Chloride 0.9% 100 ML IVPB SCH ×3 (02:14→18:03)
[2018-02-18] MEDS: Lactobacillus Acidophilus 500 MU Cap PO SCH ×2 (09:27→18:03)
[2018-02-18] MEDS: Potassium Chloride 20 mEq ER Tab PO SCH (09:28)
[2018-02-18] MEDS: Potassium Chloride 10 mEq ER Tab PO SCH (09:28)
--- NOTE | 2018-02-18 15:13 | CP.PCM.PN ---
Subjective - Date & Time of Evaluation Date of Evaluation: 02/18/18 Time of Evaluation: 15:00 - Subjective Subjective: dictated Objective - Vital Signs/Intake and Output Vital Signs (last 24 hours): Temp Pulse Resp BP Pulse Ox 98.3 F 75 20 121/69 95 02/18/18 07:00 02/18/18 07:00 02/18/18 07:00 02/18/18 09:29 02/18/18 07:00 Intake and Output: 02/18/18 02/18/18 06:59 18:59 Intake Total 590 Balance 590 - Medications Medications: Current Medications Amlodipine Besylate (Norvasc) 5 mg PO DAILY [facility] Last Admin: 02/18/18 09:27 Dose: 5 mg Apixaban (Eliquis) 5 mg PO BID [facility] Last Admin: 02/18/18 09:29 Dose: 5 mg Carvedilol (Coreg) 25 mg PO BID [facility] Last Admin: 02/18/18 09:29 Dose: 25 mg Clopidogrel Bisulfate (Plavix) 75 mg PO DAILY [facility] Last Admin: 02/18/18 09:27 Dose: 75 mg Vancomycin HCl 1,000 mg/ (Sodium Chloride) 250 mls @ 166.6 mls/hr IVPB Q12H [facility]; Protocol Last Admin: 02/18/18 05:46 Dose: 166.6 mls/hr Meropenem 1 gm/ Sodium (Chloride) 100 mls @ 100 mls/hr IVPB Q8H [facility]; Protocol Last Admin: 02/18/18 09:34 Dose: 100 mls/hr Lactobacillus Acidophilus (Bacid Acidophilus) 1 cap PO BID [facility] Last Admin: 02/18/18 09:27 Dose: 1 cap Losartan Potassium (Cozaar) 50 mg PO DAILY [facility] Last Admin: 02/18/18 09:27 Dose: 50 mg Oxycodone HCl (Oxycodone Immediate Release Tab) 30 mg PO Q8H PRN PRN Reason: Pain, moderate (4-7) Last Admin: 02/18/18 09:28 Dose: 30 mg Polyethylene Glycol (Miralax) 17 gm PO HS [facility] Last Admin: 02/17/18 21:22 Dose: 17 gm Potassium Chloride (K-Dur 20 Meq Er Tab) 20 meq PO DAILY [facility] Last Admin: 02/18/18 09:28 Dose: 20 meq - Labs Labs: 02/17/18 07:03 02/17/18 07:03 PT 15.0 SECONDS (9.7-12.2) H 02/14/18 22:00 INR 1.4 02/14/18 22:00 APTT 41 SECONDS (21-34) H 02/14/18 22:00
--- NOTE | 2018-02-18 16:54 | CP.PCM.PN ---
Subjective - Date & Time of Evaluation Date of Evaluation: 02/17/18 Time of Evaluation: 06:00 - Subjective Subjective: discussed with dr rausch Objective - Vital Signs/Intake and Output Vital Signs (last 24 hours): Temp Pulse Resp BP Pulse Ox 97.7 F 86 20 141/66 96 02/18/18 15:05 02/18/18 15:05 02/18/18 15:05 02/18/18 15:05 02/18/18 15:05 Intake and Output: 02/18/18 02/18/18 06:59 18:59 Intake Total 590 Balance 590 - Medications Medications: Current Medications Amlodipine Besylate (Norvasc) 5 mg PO DAILY [facility] Last Admin: 02/18/18 09:27 Dose: 5 mg Apixaban (Eliquis) 5 mg PO BID [facility] Last Admin: 02/18/18 09:29 Dose: 5 mg Carvedilol (Coreg) 25 mg PO BID [facility] Last Admin: 02/18/18 09:29 Dose: 25 mg Clopidogrel Bisulfate (Plavix) 75 mg PO DAILY [facility] Last Admin: 02/18/18 09:27 Dose: 75 mg Vancomycin HCl 1,000 mg/ (Sodium Chloride) 250 mls @ 166.6 mls/hr IVPB Q12H [facility]; Protocol Last Admin: 02/18/18 05:46 Dose: 166.6 mls/hr Meropenem 1 gm/ Sodium (Chloride) 100 mls @ 100 mls/hr IVPB Q8H [facility]; Protocol Last Admin: 02/18/18 09:34 Dose: 100 mls/hr Lactobacillus Acidophilus (Bacid Acidophilus) 1 cap PO BID [facility] Last Admin: 02/18/18 09:27 Dose: 1 cap Losartan Potassium (Cozaar) 50 mg PO DAILY [facility] Last Admin: 02/18/18 09:27 Dose: 50 mg Oxycodone HCl (Oxycodone Immediate Release Tab) 30 mg PO Q8H PRN PRN Reason: Pain, moderate (4-7) Last Admin: 02/18/18 09:28 Dose: 30 mg Polyethylene Glycol (Miralax) 17 gm PO HS [facility] Last Admin: 02/17/18 21:22 Dose: 17 gm Potassium Chloride (K-Dur 20 Meq Er Tab) 20 meq PO DAILY [facility] Last Admin: 02/18/18 09:28 Dose: 20 meq - Labs Labs: 02/17/18 07:03 02/17/18 07:03 PT 15.0 SECONDS (9.7-12.2) H 02/14/18 22:00 INR 1.4 02/14/18 22:00 APTT 41 SECONDS (21-34) H 02/14/18 22:00 - Constitutional Appears: Chronically Ill - Eye Exam Pupil Exam: absent: NORMAL ACCOMODATION - ENT Exam ENT Exam: Mucous Membranes Dry - Neck Exam Neck Exam: absent: Lymphadenopathy - Respiratory Exam Respiratory Exam: Decreased Breath Sounds - Cardiovascular Exam Cardiovascular Exam: REGULAR RHYTHM - GI/Abdominal Exam GI & Abdominal Exam: Distended Assessment and Plan (1) Anemia Status: Acute (2) PICC (peripherally inserted central catheter) in place Status: Acute (3) Recurrent epistaxis Status: Acute (4) Osteomyelitis Status: Acute (5) History of total left knee replacement (TKR) Status: Acute (6) Infection of total left knee replacement Status: Acute
--- NOTE | 2018-02-18 16:58 | CP.PCM.PN ---
Subjective - Date & Time of Evaluation Date of Evaluation: 02/18/18 Time of Evaluation: 10:00 - Subjective Subjective: Blood c/s done on admission + - PICC line since removed / replaced heme on board now c/o swelling left arm and shoulder s/p PICC arm is ecchymotic / swollen pulses + venous doppler pending may need vascular re-eval cardio on board dr Reece aware left knee spacer same / brace in place Objective - Vital Signs/Intake and Output Vital Signs (last 24 hours): Temp Pulse Resp BP Pulse Ox 97.7 F 86 20 141/66 96 02/18/18 15:05 02/18/18 15:05 02/18/18 15:05 02/18/18 15:05 02/18/18 15:05 Intake and Output: 02/18/18 02/18/18 06:59 18:59 Intake Total 590 Balance 590 - Medications Medications: Current Medications Amlodipine Besylate (Norvasc) 5 mg PO DAILY [facility] Last Admin: 02/18/18 09:27 Dose: 5 mg Apixaban (Eliquis) 5 mg PO BID [facility] Last Admin: 02/18/18 09:29 Dose: 5 mg Carvedilol (Coreg) 25 mg PO BID [facility] Last Admin: 02/18/18 09:29 Dose: 25 mg Clopidogrel Bisulfate (Plavix) 75 mg PO DAILY [facility] Last Admin: 02/18/18 09:27 Dose: 75 mg Vancomycin HCl 1,000 mg/ (Sodium Chloride) 250 mls @ 166.6 mls/hr IVPB Q12H [facility]; Protocol Last Admin: 02/18/18 05:46 Dose: 166.6 mls/hr Meropenem 1 gm/ Sodium (Chloride) 100 mls @ 100 mls/hr IVPB Q8H [facility]; Protocol Last Admin: 02/18/18 09:34 Dose: 100 mls/hr Lactobacillus Acidophilus (Bacid Acidophilus) 1 cap PO BID [facility] Last Admin: 02/18/18 09:27 Dose: 1 cap Losartan Potassium (Cozaar) 50 mg PO DAILY [facility] Last Admin: 02/18/18 09:27 Dose: 50 mg Oxycodone HCl (Oxycodone Immediate Release Tab) 30 mg PO Q8H PRN PRN Reason: Pain, moderate (4-7) Last Admin: 02/18/18 09:28 Dose: 30 mg Polyethylene Glycol (Miralax) 17 gm PO HS [facility] Last Admin: 02/17/18 21:22 Dose: 17 gm Potassium Chloride (K-Dur 20 Meq Er Tab) 20 meq PO DAILY [facility] Last Admin: 02/18/18 09:28 Dose: 20 meq - Labs Labs: 02/17/18 07:03 02/17/18 07:03 PT 15.0 SECONDS (9.7-12.2) H 02/14/18 22:00 INR 1.4 02/14/18 22:00 APTT 41 SECONDS (21-34) H 02/14/18 22:00 - Constitutional Appears: Non-toxic, Chronically Ill - Head Exam Head Exam: NORMOCEPHALIC - Eye Exam Eye Exam: PERRL - ENT Exam ENT Exam: Mucous Membranes Dry - Neck Exam Neck Exam: absent: Lymphadenopathy - Respiratory Exam Respiratory Exam: Decreased Breath Sounds - Cardiovascular Exam Cardiovascular Exam: REGULAR RHYTHM - GI/Abdominal Exam GI & Abdominal Exam: Distended, Soft - Rectal Exam Rectal Exam: Deferred - Exam Exam: NORMAL INSPECTION - Extremities Exam Extremities Exam: absent: Pedal Edema Additional comments: left knee in a brace pulses + all 4 extremities left arm ecchymosis / swelling + - Back Exam Back Exam: absent: CVA tenderness (L), CVA tenderness (R) - Neurological Exam Neurological Exam: Alert, Awake, Oriented x3 - Psychiatric Exam Psychiatric exam: Normal Mood - Skin Skin Exam: Dry Assessment and Plan (1) Anemia Status: Acute (2) PICC (peripherally inserted central catheter) in place Status: Acute (3) Recurrent epistaxis Status: Acute (4) Osteomyelitis Status: Acute (5) History of total left knee replacement (TKR) Status: Acute (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 coagulopathy- had epistaxis on admission now c/o swelling left arm and shoulder s/p PICC- issues addressed by dr hinojosa arm is ecchymotic / swollen pulses +venous doppler pending may need vascular re-eval cardio on board for chest pain dr Reece aware left knee spacer same / brace in place IV antibiotics for OM/ Infected pr osthesis to continue
[2018-02-18] MEDS: POLYETHYLENE GLYCOL 3350 17 GM/Dose PACKET PO SCH (22:03)
--- NOTE | 2018-02-19 01:01 | PN ---
DATE: 02/18/2018 SUBJECTIVE: The patient was complaining of pain in the left arm now where the new line is. She had blood cultures done on admission when she had a PICC line which was removed. It has come back positive with GPCs, and Hem/Onc is on board. They have to find out what we should continue as she is complaining of pain in the left upper arm, left shoulder, and left chest now, and I have asked for the Dopplers which will be done early tomorrow morning as the chest lab when I had called for her, and this patient is already on multiple anticoagulants. She recently had ultrasound which showed no DVT in the left leg now. There is some ecchymosis there, but she has pulses positive, radial as well as brachial, and I have also requested an echocardiogram. We will check with Dr. Reece if there is any endocarditis or anything like that. She does have a spacer in her left leg. Denies any problems there. This is new now that she is complaining of left shoulder. She did complain of pain after the insertion of the left PICC line, but that was too early and I thought it was just that she is getting used to it, but she is on Eliquis as well as Plavix, and those things can cause hematoma or bleeding. I have ordered Dopplers for now to rule out any DVT as she did have DVT in the left leg before. PHYSICAL EXAMINATION: VITAL SIGNS: T-max is 97.7, pulse 86, blood pressure 141/66, and respirations are 20. GENERAL: She is awake and alert. She still complains of pain even after getting 1 hour before oxycodone. HEENT: Head is atraumatic. NECK: Supple. LUNGS: Clear. HEART: S1, S2 are regular. ABDOMEN: Soft, nontender. No guarding, no rigidity present. EXTREMITIES: Right arm is improving. It is the site where the PICC line was removed. There is no redness, no swelling, no ecchymosis. Left arm has a new PICC line with mild ecchymosis. Left arm, she has a spacer present with a soft external removable immobilizer which she can open and close if she needs to. Left foot is not swollen anymore as she has been in bed. LABORATORY DATA: There were no new labs today. ASSESSMENT AND PLAN: I am waiting for further identification and sensitivity of the organism which was reported, and we will repeat the blood cultures in the morning, echocardiogram to rule out endocarditis, and check with Hematology/Oncology where she is on Eliquis, she is on Plavix which makes this more difficult to place any line. She is waiting for her left knee surgery also after the antibiotics. Talha Chatman MD
[2018-02-19] MEDS: Meropenem 1 GM in Sodium Chloride 0.9% 100 ML IVPB SCH ×3 (02:31→17:30)
[2018-02-19] MEDS: oxyCODONE 30 mg Immediate Release Tab PO PRN ×2 (03:55→16:54)
[2018-02-19] MEDS: Lactobacillus Acidophilus 500 MU Cap PO SCH ×2 (10:26→18:06)
[2018-02-19] MEDS: Potassium Chloride 20 mEq ER Tab PO SCH (10:26)
--- NOTE | 2018-02-19 10:58 | CP.PCM.PN ---
Subjective - Date & Time of Evaluation Date of Evaluation: 02/19/18 Time of Evaluation: 10:15 - Subjective Subjective: dictated Objective - Vital Signs/Intake and Output Vital Signs (last 24 hours): Temp Pulse Resp BP Pulse Ox 98.3 F 66 20 144/84 98 02/19/18 07:00 02/19/18 07:00 02/19/18 07:00 02/19/18 10:27 02/19/18 07:00 Intake and Output: 02/19/18 02/19/18 06:59 18:59 Intake Total 590 Balance 590 - Medications Medications: Current Medications Amlodipine Besylate (Norvasc) 5 mg PO DAILY [facility] Last Admin: 02/19/18 10:26 Dose: 5 mg Apixaban (Eliquis) 5 mg PO BID [facility] Last Admin: 02/19/18 10:26 Dose: 5 mg Carvedilol (Coreg) 25 mg PO BID [facility] Last Admin: 02/19/18 10:27 Dose: 25 mg Clopidogrel Bisulfate (Plavix) 75 mg PO DAILY [facility] Last Admin: 02/19/18 10:26 Dose: 75 mg Vancomycin HCl 1,000 mg/ (Sodium Chloride) 250 mls @ 166.6 mls/hr IVPB Q12H [facility]; Protocol Last Admin: 02/19/18 05:09 Dose: 166.6 mls/hr Meropenem 1 gm/ Sodium (Chloride) 100 mls @ 100 mls/hr IVPB Q8H [facility]; Protocol Last Admin: 02/19/18 10:26 Dose: 100 mls/hr Lactobacillus Acidophilus (Bacid Acidophilus) 1 cap PO BID [facility] Last Admin: 02/19/18 10:26 Dose: 1 cap Losartan Potassium (Cozaar) 50 mg PO DAILY [facility] Last Admin: 02/19/18 10:26 Dose: 50 mg Oxycodone HCl (Oxycodone Immediate Release Tab) 30 mg PO Q8H PRN PRN Reason: Pain, moderate (4-7) Last Admin: 02/19/18 03:55 Dose: 30 mg Polyethylene Glycol (Miralax) 17 gm PO HS [facility] Last Admin: 02/18/18 22:03 Dose: 17 gm Potassium Chloride (K-Dur 20 Meq Er Tab) 20 meq PO DAILY [facility] Last Admin: 02/19/18 10:26 Dose: 20 meq - Labs Labs: 02/17/18 07:03 02/17/18 07:03 PT 15.0 SECONDS (9.7-12.2) H 02/14/18 22:00 INR 1.4 02/14/18 22:00 APTT 41 SECONDS (21-34) H 02/14/18 22:00
--- NOTE | 2018-02-19 11:07 | CARD ---
APPROVED REPORT Date of service: 02/15/2018 EKG Measurement Heart [id number] MI [id number] <Conclusion> Normal sinus rhythm Minimal voltage criteria for LVH, may be normal variant Borderline ECG
--- NOTE | 2018-02-19 12:41 | CP.PCM.PN ---
Subjective - Date & Time of Evaluation Date of Evaluation: 02/19/18 Time of Evaluation: 08:00 - Subjective Subjective: C/O PAIN AND SWELLING LEFT ARM DOPPLER PENDING Objective - Vital Signs/Intake and Output Vital Signs (last 24 hours): Temp Pulse Resp BP Pulse Ox 98.3 F 66 20 144/84 98 02/19/18 07:00 02/19/18 07:00 02/19/18 07:00 02/19/18 10:27 02/19/18 07:00 Intake and Output: 02/19/18 02/19/18 06:59 18:59 Intake Total 590 Balance 590 - Medications Medications: Current Medications Amlodipine Besylate (Norvasc) 5 mg PO DAILY [facility] Last Admin: 02/19/18 10:26 Dose: 5 mg Apixaban (Eliquis) 5 mg PO BID [facility] Last Admin: 02/19/18 10:26 Dose: 5 mg Carvedilol (Coreg) 25 mg PO BID [facility] Last Admin: 02/19/18 10:27 Dose: 25 mg Clopidogrel Bisulfate (Plavix) 75 mg PO DAILY [facility] Last Admin: 02/19/18 10:26 Dose: 75 mg Vancomycin HCl 1,000 mg/ (Sodium Chloride) 250 mls @ 166.6 mls/hr IVPB Q12H [facility]; Protocol Last Admin: 02/19/18 05:09 Dose: 166.6 mls/hr Meropenem 1 gm/ Sodium (Chloride) 100 mls @ 100 mls/hr IVPB Q8H [facility]; Protocol Last Admin: 02/19/18 10:26 Dose: 100 mls/hr Lactobacillus Acidophilus (Bacid Acidophilus) 1 cap PO BID [facility] Last Admin: 02/19/18 10:26 Dose: 1 cap Losartan Potassium (Cozaar) 50 mg PO DAILY [facility] Last Admin: 02/19/18 10:26 Dose: 50 mg Oxycodone HCl (Oxycodone Immediate Release Tab) 30 mg PO Q8H PRN PRN Reason: Pain, moderate (4-7) Last Admin: 02/19/18 03:55 Dose: 30 mg Polyethylene Glycol (Miralax) 17 gm PO HS [facility] Last Admin: 02/18/18 22:03 Dose: 17 gm Potassium Chloride (K-Dur 20 Meq Er Tab) 20 meq PO DAILY [facility] Last Admin: 02/19/18 10:26 Dose: 20 meq - Labs Labs: 02/17/18 07:03 02/17/18 07:03 PT 15.0 SECONDS (9.7-12.2) H 02/14/18 22:00 INR 1.4 02/14/18 22:00 APTT 41 SECONDS (21-34) H 02/14/18 22:00 - Constitutional Appears: Non-toxic, Chronically Ill - Head Exam Head Exam: NORMOCEPHALIC - Eye Exam Eye Exam: PERRL - ENT Exam ENT Exam: Mucous Membranes Dry - Neck Exam Neck Exam: absent: Lymphadenopathy - Respiratory Exam Respiratory Exam: Decreased Breath Sounds - Cardiovascular Exam Cardiovascular Exam: REGULAR RHYTHM - GI/Abdominal Exam GI & Abdominal Exam: Distended, Soft - Rectal Exam Rectal Exam: Deferred - Exam Exam: NORMAL INSPECTION - Extremities Exam Extremities Exam: absent: Pedal Edema Additional comments: SWELLING LEFT ARM AND SHOULDER - Back Exam Back Exam: absent: CVA tenderness (L), CVA tenderness (R) - Neurological Exam Neurological Exam: Alert, Awake, Oriented x3 - Psychiatric Exam Psychiatric exam: Normal Mood - Skin Skin Exam: Dry Assessment and Plan (1) Anemia Status: Acute (2) PICC (peripherally inserted central catheter) in place Status: Acute (3) Recurrent epistaxis Status: Acute (4) Osteomyelitis Status: Acute (5) History of total left knee replacement (TKR) Status: Acute (6) Infection of total left knee replacement Status: Acute - Assessment and Plan (Free Text) Assessment: Blood c/s done on admission + STREP VIRIDENS - PICC line since removed / replaced MAY NEED JUDIE heme on board for ? coagulopathy- had epistaxis on admission NO ACTIVE BLEEDING CIPRO D/C'D BY ID now c/o swelling left arm and shoulder s/p PICC- issues addressed by dr hinojosa arm is ecchymotic / swollen pulses +venous doppler pending may need vascular re-eval cardio on board for chest pain dr Reece aware MAY NEED JUDIE left knee spacer same / brace in place IV antibiotics for OM/ Infected prosthesis to continue
--- NOTE | 2018-02-19 14:13 | PN ---
DATE: 02/19/2018 INFECTIOUS DISEASE FOLLOWUP SUBJECTIVE: The patient just went to have Dopplers done on her left side. She still complains of pain on the left chest as well as left shoulder. It is more when she presses but need to rule out any clot, as left side she has a PICC line and some ecchymosis on the area where the PICC line was placed with mild swelling. The patient's blood culture from admission came out positive for strep viridans one set, so we will get an echo done as well as continue antibiotics. She is on vancomycin and Merrem at this time and I am surprised that she did have strep viridans in spite of being on vancomycin and Cipro at home, intravenous probably and it was not functioning right, so she came here and also had epistaxis at that time. She is so on Eliquis and Plavix. I want to make sure those are the drugs she needs because she is having trouble and we cannot put a PICC line with all these anticoagulants on, she needs antibiotics and now with this new bacteremia she may need a JUDIE to rule out endocarditis, as she is looking forward to get a new knee and she has a spacer at this time. Has pain in the left knee also and left leg, she says it is swollen. So, multiple issues here; however, she does not complain of any epistaxis right now, she did go down for the tests. PHYSICAL EXAMINATION: VITAL SIGNS: T-max is 98.3, pulse 66, blood pressure 114/66, respirations are 20. HEENT: Head is atraumatic, normocephalic. Pupils are reacting to light. LUNGS: Clear. HEART: S1, S2, regular. ABDOMEN: Soft, nontender. No guarding, no rigidity present. EXTREMITIES: She has some ibarra on the right arm she is worried about, but that is probably from the dressings, does not show any infected area, only with the area where the was. There is a necrotic black dot on that side where the PICC line probably was coming out, but does not look any infection there, but blood culture did come out with strep viridans. Left leg has a soft scar present and right leg is unremarkable. LABORATORY DATA: I had ordered labs for her and labs are still pending. If not, then we will get the labs done stat. ASSESSMENT AND PLAN: She has a peripheral intravenous at this time on the right side through which they are giving the intravenous. She is on vancomycin and meropenem at this time. We will repeat the labs. Plan is that we will need the echo report, need the vascular report. She has Streptococcus viridans, so she needs to be treated for that. She is already on vancomycin and meropenem. I will ask Dr. Harris if it needs any change but we are going to get a transesophageal echocardiography just to make sure there is no endocarditis. I want to make sure she has to be on these two blood thinners, continue antibiotics, and she will need treatment for this bacteremia to clear. She did have blood cultures which was done on 02/17/2018, which are negative, 24 hours . We will follow. Talha Chatman MD
[2018-02-19] MEDS ORDERED: Vancomycin 1 gm/NS 200 ml 1 GM/200 ML BAG IVPB SCH (16:30)
--- NOTE | 2018-02-19 17:53 | CARD ---
APPROVED REPORT Date of service: 02/19/2018 EXAM: Two-dimensional and M-mode echocardiogram with Doppler and color Doppler. Other Information Quality : GoodRhythm : NSR INDICATION ANEMIA/POSSITIVE BLOOD CULTURE 2D DIMENSIONS LA Obggdh77 (18-58mL) M-Mode DIMENSIONS RVDd1.66 (2.1-3.2cm)Left Atrium (MM)4.09 (2.5-4.0cm) IVSd1.11 (0.7-1.1cm)Aortic Root3.43 (2.2-3.7cm) LVDd6.05 (4.0-5.6cm)Aortic Cusp Exc.1.66 (1.5-2.0cm) PWd1.14 (0.7-1.1cm)FS (%) 30 % LVDs4.20 (2.0-3.8cm)LVEF (%)57 (>50%) Aortic Valve AoV Peak Sbexzdow519.3cm/Jaylan Peak GR.12mmHgAI P 1/2 Uzuk465ct Mitral Valve MV E Hxsiuoyq85.9cm/sMV A Kvjhwxin48.9cm/sE/A ratio1.0 TDI Lateral E' Peak V5.71cm/sMedial E' Peak V3.90cm/sE/Lateral E'15.7 E/Medial E'23.1 Tricuspid Valve TR Peak Lmebbicx096wy/sTR Peak Gr.72dySuBGWG85taVe LEFT VENTRICLE The left ventricle is normal size. There is borderline concentric left ventricular hypertrophy. The left ventricular function is normal. The left ventricular ejection fraction is within the normal range. There is normal LV segmental wall motion. The left ventricular diastolic function is normal. RIGHT VENTRICLE The right ventricle is normal size. There is normal right ventricular wall thickness. The right ventricular systolic function is normal. ATRIA The left atrium is borderline dilated. The right atrium size is normal. AORTIC VALVE The aortic valve is mildly thickened. There is trace to mild aortic regurgitation. There is no aortic valvular stenosis. MITRAL VALVE The mitral valve is moderately thickened. There is no mitral valve stenosis. Mitral regurgitation is trace to mild. TRICUSPID VALVE The tricuspid valve is normal in structure. There is no tricuspid valve regurgitation noted. PULMONIC VALVE The pulmonary valve is normal in structure. There is trace pulmonic valvular regurgitation. GREAT VESSELS The aortic root is normal in size. The IVC is normal in size and collapses >50% with inspiration. <Conclusion> The left ventricle is normal size. There is borderline concentric left ventricular hypertrophy. The left ventricular function is normal. The left ventricular ejection fraction is within the normal range. There is normal LV segmental wall motion. The left ventricular diastolic function is normal. There is trace to mild aortic regurgitation. The mitral valve is moderately thickened. Mitral regurgitation is trace to mild. No vegitation seen
[2018-02-19] MEDS: POLYETHYLENE GLYCOL 3350 17 GM/Dose PACKET PO SCH (21:39)
--- NOTE | 2018-02-19 23:10 | CP.PCM.PN ---
Subjective - Date & Time of Evaluation Date of Evaluation: 02/19/18 Time of Evaluation: 08:00 - Subjective Subjective: no chest pain today NAD Objective - Vital Signs/Intake and Output Vital Signs (last 24 hours): Temp Pulse Resp BP Pulse Ox 98.4 F 69 20 145/80 97 02/19/18 15:00 02/19/18 15:00 02/19/18 15:00 02/19/18 17:29 02/19/18 15:00 - Medications Medications: Current Medications Amlodipine Besylate (Norvasc) 5 mg PO DAILY [facility] Last Admin: 02/19/18 10:26 Dose: 5 mg Apixaban (Eliquis) 5 mg PO BID [facility] Last Admin: 02/19/18 17:29 Dose: 5 mg Carvedilol (Coreg) 25 mg PO BID [facility] Last Admin: 02/19/18 17:29 Dose: 25 mg Clopidogrel Bisulfate (Plavix) 75 mg PO DAILY [facility] Last Admin: 02/19/18 10:26 Dose: 75 mg Meropenem 1 gm/ Sodium (Chloride) 100 mls @ 100 mls/hr IVPB Q8H [facility]; Protocol Last Admin: 02/19/18 17:30 Dose: 100 mls/hr Vancomycin/Sodium Chloride (Vancomycin 1 Gm/Ns 200 Ml) 1 gm in 200 mls @ 133.333 mls/hr IVPB Q12H [facility]; Protocol Stop: 02/25/18 06:01 Lactobacillus Acidophilus (Bacid Acidophilus) 1 cap PO BID [facility] Last Admin: 02/19/18 18:06 Dose: 1 cap Losartan Potassium (Cozaar) 50 mg PO DAILY [facility] Last Admin: 02/19/18 10:26 Dose: 50 mg Oxycodone HCl (Oxycodone Immediate Release Tab) 30 mg PO Q8H PRN PRN Reason: Pain, moderate (4-7) Polyethylene Glycol (Miralax) 17 gm PO HS [facility] Last Admin: 02/19/18 21:39 Dose: 17 gm Potassium Chloride (K-Dur 20 Meq Er Tab) 20 meq PO DAILY [facility] Last Admin: 02/19/18 10:26 Dose: 20 meq - Labs Labs: 02/17/18 07:03 02/17/18 07:03 PT 15.0 SECONDS (9.7-12.2) H 02/14/18 22:00 INR 1.4 02/14/18 22:00 APTT 41 SECONDS (21-34) H 02/14/18 22:00 - Constitutional Appears: Non-toxic - Head Exam Head Exam: NORMAL INSPECTION - Eye Exam Eye Exam: Scleral icterus - ENT Exam ENT Exam: Mucous Membranes Moist - Neck Exam Neck Exam: Full ROM - Respiratory Exam Respiratory Exam: NORMAL BREATHING PATTERN - Cardiovascular Exam Cardiovascular Exam: REGULAR RHYTHM - GI/Abdominal Exam GI & Abdominal Exam: absent: Soft - Extremities Exam Extremities Exam: absent: Pedal Edema - Neurological Exam Neurological Exam: Alert, Oriented x3 Assessment and Plan - Assessment and Plan (Free Text) Assessment: Atypical chest pain HTN Left knee infection Plan: Cont abtx Lexiscan in AM
--- NOTE | 2018-02-19 23:18 | CP.PCM.PN ---
Subjective - Date & Time of Evaluation Date of Evaluation: 02/18/18 Time of Evaluation: 20:00 - Subjective Subjective: no chest pain Afebrile. +pain at surgical site Objective - Vital Signs/Intake and Output Vital Signs (last 24 hours): Temp Pulse Resp BP Pulse Ox 98.4 F 69 20 145/80 97 02/19/18 15:00 02/19/18 15:00 02/19/18 15:00 02/19/18 17:29 02/19/18 15:00 - Medications Medications: Current Medications Amlodipine Besylate (Norvasc) 5 mg PO DAILY [facility] Last Admin: 02/19/18 10:26 Dose: 5 mg Apixaban (Eliquis) 5 mg PO BID [facility] Last Admin: 02/19/18 17:29 Dose: 5 mg Carvedilol (Coreg) 25 mg PO BID [facility] Last Admin: 02/19/18 17:29 Dose: 25 mg Clopidogrel Bisulfate (Plavix) 75 mg PO DAILY [facility] Last Admin: 02/19/18 10:26 Dose: 75 mg Meropenem 1 gm/ Sodium (Chloride) 100 mls @ 100 mls/hr IVPB Q8H [facility]; Protocol Last Admin: 02/19/18 17:30 Dose: 100 mls/hr Vancomycin/Sodium Chloride (Vancomycin 1 Gm/Ns 200 Ml) 1 gm in 200 mls @ 133.333 mls/hr IVPB Q12H [facility]; Protocol Stop: 02/25/18 06:01 Lactobacillus Acidophilus (Bacid Acidophilus) 1 cap PO BID [facility] Last Admin: 02/19/18 18:06 Dose: 1 cap Losartan Potassium (Cozaar) 50 mg PO DAILY [facility] Last Admin: 02/19/18 10:26 Dose: 50 mg Oxycodone HCl (Oxycodone Immediate Release Tab) 30 mg PO Q8H PRN PRN Reason: Pain, moderate (4-7) Polyethylene Glycol (Miralax) 17 gm PO HS [facility] Last Admin: 02/19/18 21:39 Dose: 17 gm Potassium Chloride (K-Dur 20 Meq Er Tab) 20 meq PO DAILY [facility] Last Admin: 02/19/18 10:26 Dose: 20 meq - Labs Labs: 02/17/18 07:03 02/17/18 07:03 PT 15.0 SECONDS (9.7-12.2) H 02/14/18 22:00 INR 1.4 02/14/18 22:00 APTT 41 SECONDS (21-34) H 02/14/18 22:00 - Constitutional Appears: Non-toxic - Head Exam Head Exam: NORMAL INSPECTION - Eye Exam Eye Exam: Scleral icterus - Neck Exam Neck Exam: Full ROM - Respiratory Exam Respiratory Exam: NORMAL BREATHING PATTERN - Cardiovascular Exam Cardiovascular Exam: REGULAR RHYTHM - GI/Abdominal Exam GI & Abdominal Exam: Soft - Extremities Exam Extremities Exam: Joint Swelling. absent: Pedal Edema Assessment and Plan - Assessment and Plan (Free Text) Assessment: Atypical chest pain HTN Left knee infection Plan: Cont abtx Lexiscan when more stable with knee infection
--- NOTE | 2018-02-19 23:26 | CP.PCM.PN ---
Subjective - Date & Time of Evaluation Date of Evaluation: 02/16/18 Time of Evaluation: 07:00 - Subjective Subjective: on and off atypical chest pain no sob Objective - Vital Signs/Intake and Output Vital Signs (last 24 hours): Temp Pulse Resp BP Pulse Ox 98.4 F 69 20 145/80 97 02/19/18 15:00 02/19/18 15:00 02/19/18 15:00 02/19/18 17:29 02/19/18 15:00 - Medications Medications: Current Medications Amlodipine Besylate (Norvasc) 5 mg PO DAILY [facility] Last Admin: 02/19/18 10:26 Dose: 5 mg Apixaban (Eliquis) 5 mg PO BID [facility] Last Admin: 02/19/18 17:29 Dose: 5 mg Carvedilol (Coreg) 25 mg PO BID [facility] Last Admin: 02/19/18 17:29 Dose: 25 mg Clopidogrel Bisulfate (Plavix) 75 mg PO DAILY [facility] Last Admin: 02/19/18 10:26 Dose: 75 mg Meropenem 1 gm/ Sodium (Chloride) 100 mls @ 100 mls/hr IVPB Q8H [facility]; Protocol Last Admin: 02/19/18 17:30 Dose: 100 mls/hr Vancomycin/Sodium Chloride (Vancomycin 1 Gm/Ns 200 Ml) 1 gm in 200 mls @ 133.333 mls/hr IVPB Q12H [facility]; Protocol Stop: 02/25/18 06:01 Lactobacillus Acidophilus (Bacid Acidophilus) 1 cap PO BID [facility] Last Admin: 02/19/18 18:06 Dose: 1 cap Losartan Potassium (Cozaar) 50 mg PO DAILY [facility] Last Admin: 02/19/18 10:26 Dose: 50 mg Oxycodone HCl (Oxycodone Immediate Release Tab) 30 mg PO Q8H PRN PRN Reason: Pain, moderate (4-7) Polyethylene Glycol (Miralax) 17 gm PO HS [facility] Last Admin: 02/19/18 21:39 Dose: 17 gm Potassium Chloride (K-Dur 20 Meq Er Tab) 20 meq PO DAILY [facility] Last Admin: 02/19/18 10:26 Dose: 20 meq - Labs Labs: 02/17/18 07:03 02/17/18 07:03 PT 15.0 SECONDS (9.7-12.2) H 02/14/18 22:00 INR 1.4 02/14/18 22:00 APTT 41 SECONDS (21-34) H 02/14/18 22:00 - Constitutional Appears: Non-toxic - Head Exam Head Exam: NORMAL INSPECTION - Eye Exam Eye Exam: Scleral icterus - ENT Exam ENT Exam: Mucous Membranes Moist - Neck Exam Neck Exam: Full ROM - Respiratory Exam Respiratory Exam: NORMAL BREATHING PATTERN - Cardiovascular Exam Cardiovascular Exam: REGULAR RHYTHM - GI/Abdominal Exam GI & Abdominal Exam: Soft - Extremities Exam Extremities Exam: absent: Calf Tenderness, Pedal Edema - Neurological Exam Neurological Exam: Alert, Oriented x3 Assessment and Plan - Assessment and Plan (Free Text) Assessment: Atypical chest pain HTN Left knee infection Plan: trops x 3 Cont abtx Lexiscan when more stable
[2018-02-20] MEDS: oxyCODONE 30 mg Immediate Release Tab PO PRN ×3 (01:22→21:21)
[2018-02-20] MEDS: Meropenem 1 GM in Sodium Chloride 0.9% 100 ML IVPB SCH ×3 (01:23→17:51)
[2018-02-20] MEDS: Vancomycin 1 gm/NS 200 ml 1 GM/200 ML BAG IVPB SCH ×2 (06:09→17:52)
[2018-02-20 06:21] LABS: BASO # 0.1 K/uL (0.0-0.2); BASO % 0.9 % (0.0-2.0); EOS # 0.3 K/uL (0.0-0.7); EOS % 5.3 % (0.0-4.0); HEMOGLOBIN 9.6 g/dL (11.0-16.0); LYMPH # 1.5 K/uL (1.0-4.3); LYMPH % 26.7 % (20.0-40.0); MEAN CORPUSCULAR HEMOGLOBIN 27.3 pg (27.0-31.0); MEAN CORPUSCULAR HGB CONC 33.3 g/dL (33.0-37.0); MONO # 0.9 K/uL (0.0-0.8); MONO % 15.8 % (0.0-10.0); NEUT # 2.8 K/uL (1.8-7.0); NEUT % 51.3 % (50.0-75.0); NRBC % 0.1 % (0.0-2.0); RBC 3.52 Mil/uL (3.80-5.20); RED CELL DISTRIBUTION WIDTH 14.7 % (11.5-14.5); WHITE BLOOD COUNT 5.5 K/uL (4.8-10.8)
[2018-02-20 06:44] LABS: ALB/GLOB RATIO 1.5 (1.0-2.1); ALBUMIN 3.8 g/dL (3.5-5.0); ALT/SGPT 30 U/L (9-52); AST/SGOT 26 U/L (14-36); BLOOD UREA NITROGEN 12 mg/dL (7-17); GFR NON-AFRICAN AMERICAN > 60
[2018-02-20] MEDS ORDERED: Caffeine Citrated **INJ** 20 MG/ML IV ONE (08:08)
[2018-02-20] MEDS: Potassium Chloride 20 mEq ER Tab PO SCH (11:01)
[2018-02-20] MEDS: Lactobacillus Acidophilus 500 MU Cap PO SCH ×2 (11:01→17:50)
--- NOTE | 2018-02-20 12:34 | CP.PCM.PN ---
Subjective - Date & Time of Evaluation Date of Evaluation: 02/20/18 Time of Evaluation: 07:00 - Subjective Subjective: c/o pain and swelling left arm and shoulder Dr Chatman and Dr Reece aware afeb no new cultures Objective - Vital Signs/Intake and Output Vital Signs (last 24 hours): Temp Pulse Resp BP Pulse Ox 98.1 F 68 18 130/77 98 02/20/18 08:01 02/20/18 08:01 02/20/18 08:01 02/20/18 11:01 02/20/18 08:01 Intake and Output: 02/20/18 02/20/18 06:59 18:59 Intake Total 300 Balance 300 - Medications Medications: Current Medications Amlodipine Besylate (Norvasc) 5 mg PO DAILY [facility] Last Admin: 02/20/18 11:00 Dose: 5 mg Apixaban (Eliquis) 5 mg PO BID [facility] Last Admin: 02/20/18 11:00 Dose: 5 mg Carvedilol (Coreg) 25 mg PO BID [facility] Last Admin: 02/20/18 11:01 Dose: 25 mg Clopidogrel Bisulfate (Plavix) 75 mg PO DAILY [facility] Last Admin: 02/20/18 11:00 Dose: 75 mg Meropenem 1 gm/ Sodium (Chloride) 100 mls @ 100 mls/hr IVPB Q8H [facility]; Protocol Last Admin: 02/20/18 10:59 Dose: 100 mls/hr Vancomycin/Sodium Chloride (Vancomycin 1 Gm/Ns 200 Ml) 1 gm in 200 mls @ 133.33 3 mls/hr IVPB Q12H [facility]; Protocol Stop: 02/25/18 06:01 Last Admin: 02/20/18 06:09 Dose: 133.333 mls/hr Lactobacillus Acidophilus (Bacid Acidophilus) 1 cap PO BID [facility] Last Admin: 02/20/18 11:01 Dose: 1 cap Losartan Potassium (Cozaar) 50 mg PO DAILY [facility] Last Admin: 02/20/18 11:01 Dose: 50 mg Oxycodone HCl (Oxycodone Immediate Release Tab) 30 mg PO Q8H PRN PRN Reason: Pain, moderate (4-7) Last Admin: 02/20/18 10:58 Dose: 30 mg Polyethylene Glycol (Miralax) 17 gm PO HS [facility] Last Admin: 02/19/18 21:39 Dose: 17 gm Potassium Chloride (K-Dur 20 Meq Er Tab) 20 meq PO DAILY [facility] Last Admin: 02/20/18 11:01 Dose: 20 meq - Labs Labs: 02/20/18 06:08 02/20/18 06:08 PT 15.0 SECONDS (9.7-12.2) H 02/14/18 22:00 INR 1.4 02/14/18 22:00 APTT 41 SECONDS (21-34) H 02/14/18 22:00 - Constitutional Appears: Non-toxic, Chronically Ill - Head Exam Head Exam: NORMOCEPHALIC - Eye Exam Eye Exam: absent: Scleral icterus - ENT Exam ENT Exam: Mucous Membranes Dry - Neck Exam Neck Exam: absent: Lymphadenopathy - Respiratory Exam Respiratory Exam: Decreased Breath Sounds - Cardiovascular Exam Cardiovascular Exam: REGULAR RHYTHM - GI/Abdominal Exam GI & Abdominal Exam: Distended, Soft - Rectal Exam Rectal Exam: Deferred - Exam Exam: NORMAL INSPECTION - Extremities Exam Extremities Exam: absent: Calf Tenderness, Pedal Edema, Tenderness Additional comments: left knee in brace left arm and shoulder swelling - Back Exam Back Exam: absent: CVA tenderness (L), CVA tenderness (R) - Neurological Exam Neurological Exam: Alert, Awake, CN II-XII Intact Assessment and Plan (1) Anemia Status: Acute (2) PICC (peripherally inserted central catheter) in place Status: Acute (3) Recurrent epistaxis Status: Acute (4) Osteomyelitis Status: Acute (5) History of total left knee replacement (TKR) Status: Acute (6) Infection of total left knee replacement Status: Acute - Assessment and Plan (Free Text) Assessment: cont iv rx for OM left knee s/p infected TKR cont anticoag as per cardio and heme vascular eval left arm and shoulder echymosis - pulses + no neuro deficit possible ct imaging Dr Caceres on consult
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
[2018-02-20] MEDS: POLYETHYLENE GLYCOL 3350 17 GM/Dose PACKET PO SCH (21:22)
[2018-02-21] MEDS: Meropenem 1 GM in Sodium Chloride 0.9% 100 ML IVPB SCH ×3 (01:03→17:07)
[2018-02-21] MEDS: Vancomycin 1 gm/NS 200 ml 1 GM/200 ML BAG IVPB SCH ×2 (05:30→17:07)
[2018-02-21] MEDS: oxyCODONE 30 mg Immediate Release Tab PO PRN ×2 (05:53→21:22)
--- NOTE | 2018-02-21 07:44 | CARD ---
APPROVED REPORT Date of service: 02/20/2018 Protocol: LEXISCAN Test Type: LEXISCAN STRESS Test Indications: CP Target HR: 167 bpm Resting ECG: NSR W/ NS ST T CHANGES Resting Heart Rate: 67 bpm Resting Blood Pressure: 140/80mmHg submaximum (85%): 142 bpm TEST SUMMARY [id number]:02..1.064/.0. PREINFSNHYPERV.04:[id number]/80.0. INFUSIONDOSE 100:300.00.01.071/.0. KTNASGHSL62:110.00.01.092/80.0. PROCEDURE Pharmacologic stress testing was performed using 0.4mg per 5ml of regadenoson given intravenously over 7-10 seconds. POST EXERCISE Reason for Termination: Protocol Completed Target HR: No Max HR: 71 bpm 62% of Maximum Predicted HR: 167 bpm Exercise duration: 00:30 min:sec, 0 Stage Exercise capacity: 1.0METs Max Blood Pressure: 140/80mmHg Blood Pressure response to exercise: normal resting BP - appropriate response Heart Rate response to exercise: appropriate Chest Pain: No, none Angina index: 0 Arrhythmia: No, none ST Change: Yes, no significant ST changes from baseline Deviation: 0 mm INTERPRETATION Stress EKG Conclusion: NEGATIVE LEXISCAN STRESS TEST NORMAL BP RESPONSE TO LEXISCAN NUCLEAR STUDIES TO BE READ SEPARTATELY EXAM: Myocardial Perfusion STRESS/REST Imaging Protocol The imaging protocol used to acquire images was Stress Tc-99m/rest Tc-99m 1 day Stress Spect myocardial perfusion imaging was performed in supine position 45 minutes following the injection of 12.3 mCi of Tc-99 Myoview. Gated Rest Spect was performed 55 minutes after intravenous 32.5 mci Tc-99 Myoview injection. The images were gated to evaluate regional wall motion and calculate ventricular ejection fraction.Images were reconstructed using backfilter projection method in short horizontal and verticle long axis. Spect slices were generated. RESTING DATA CYY802.69nwDC2.20L/min ESV58.00mlMyocardial Wimd809.00g Av. Heart Rate65.00bpm EF58.00% STRESS DATA FMG653.58bvBY6.30L/min ESV67.00mlMyocardial Lqln537.00g EF56.00% Regional WT score at stress:1.00 Regional WM score at stress:0.00 Summed WT score at stress:8.00 Av. Heart Rate75.00bpmSummed WM score at stress:17.00 LV Perf. Quant 17 Seg. SSS5.00 17 Seg. SRS2.00 17 Seg. SDS3.00 Stress Defect Extent (% LAD)3.10Rest Defect Extent (% LAD)0.00Rev. Defect Extent (% LAD)3.10 Stress Defect Extent (% LCX)45.00Rest Defect Extent (% LCX)5.00Rev. Defect Extent (% LCX)42.50 Stress Defect Extent (% RCA)0.00Rest Defect Extent (% RCA)0.00Rev. Defect Extent (% RCA)0.00 Stress Defect Extent (% ELODIA)10.00Rest Defect Extent (% ELODIA)0.90Rev. Defect Extent (% ELODIA)9.60 IMPRESSION Normal Myocardial Perfusion exercise stress study Left Ventricle LV Function:Left ventricle systolic function is normal. The Ejection Fraction is 50-55%. Regional Wall Motion:There is normal left ventricular wall motion. Metabolism/Perfusion Defects: There is no scan evidence of stress-induced ischemia noted. Conclusion 1. There is no scan evidence of stress-induced ischemia noted. 2. Left ventricle systolic function is normal. 3. The Ejection Fraction is 50-55%.
[2018-02-21] MEDS: Potassium Chloride 20 mEq ER Tab PO SCH (09:27)
[2018-02-21] MEDS: Lactobacillus Acidophilus 500 MU Cap PO SCH ×2 (09:28→17:07)
--- NOTE | 2018-02-21 11:32 | VASCLAB ---
Date of service: 02/19/2018 PROCEDURE: Left Upper Extremity Venous Duplex Exam HISTORY: L ARM AND CHEST PAIN,PT. HAS PICC LINE ON ELIQUIS PRIORS: None. TECHNIQUE: Left upper extremity, internal jugular, subclavian, axillary, brachial, ulnar, radial, basilic and upper cephalic veins were evaluated. Flow was assessed with color Doppler, compressibility, assessment of phasic flow and augmentation response. Report prepared by Geraldine Shea, ARVIND, RVS FINDINGS: LEFT: 1. Internal Jugular: 1.1. Compressibility - Fully compressible: Thrombus - None : Flow - Phasic: Augmentation -Normal: Reflux - None. 2. Subclavian: 2.1. Compressibility - Fully compressible: Thrombus - None : Flow - Phasic: Augmentation -Normal: Reflux - None. 3. Axillary: 3.1. Compressibility - Fully compressible: Thrombus - None : Flow - Phasic: Augmentation -Normal: Reflux - None. 4. Brachial: 4.1. Compressibility - Fully compressible: Thrombus - None: Flow - Phasic: Augmentation -Normal: Reflux - None. 5. Ulnar: 5.1. Compressibility - Fully compressible: Thrombus - None: Flow - Phasic: Augmentation -Normal: Reflux - None. 6. Radial: 6.1. Compressibility - Fully compressible: Thrombus - None: Flow - Phasic: Augmentation - Normal: Reflux - None. 7. Cephalic: 7.1. Compressibility - Fully compressible: Thrombus - None: Flow - Phasic: Augmentation -Normal: Reflux - None. 8. Basilic: 8.1. Compressibility - Fully compressible: Thrombus - None: Flow - Phasic: Augmentation -Normal: Reflux - None. OTHER FINDINGS: Left: Picc line was seen in the left upper cephalic vein. IMPRESSION: Left: No evidence of vein thrombosis of the left upper extremity with excellent venous flow. Normal valve function noted of the left side. Normal venous flow noted in the right internal jugular and right subclavian veins.
--- NOTE | 2018-02-21 14:28 | CP.PCM.PN ---
Subjective - Date & Time of Evaluation Date of Evaluation: 02/21/18 Time of Evaluation: 14:00 - Subjective Subjective: dictated Objective - Vital Signs/Intake and Output Vital Signs (last 24 hours): Temp Pulse Resp BP Pulse Ox 98.4 F 74 20 139/82 98 02/21/18 07:00 02/21/18 09:26 02/21/18 07:00 02/21/18 09:27 02/21/18 07:00 Intake and Output: 02/21/18 02/21/18 06:59 18:59 Intake Total 420 Balance 420 - Medications Medications: Current Medications Amlodipine Besylate (Norvasc) 5 mg PO DAILY [facility] Last Admin: 02/21/18 09:28 Dose: 5 mg Apixaban (Eliquis) 5 mg PO BID [facility] Last Admin: 02/21/18 09:28 Dose: 5 mg Carvedilol (Coreg) 25 mg PO BID [facility] Last Admin: 02/21/18 09:27 Dose: 25 mg Clopidogrel Bisulfate (Plavix) 75 mg PO DAILY [facility] Last Admin: 02/21/18 09:28 Dose: 75 mg Meropenem 1 gm/ Sodium (Chloride) 100 mls @ 100 mls/hr IVPB Q8H [facility]; Protocol Last Admin: 02/21/18 09:27 Dose: 100 mls/hr Vancomycin/Sodium Chloride (Vancomycin 1 Gm/Ns 200 Ml) 1 gm in 200 mls @ 133.333 mls/hr IVPB Q12H [facility]; Protocol Stop: 02/25/18 06:01 Last Admin: 02/21/18 05:30 Dose: 133.333 mls/hr Lactobacillus Acidophilus (Bacid Acidophilus) 1 cap PO BID [facility] Last Admin: 02/21/18 09:28 Dose: 1 cap Losartan Potassium (Cozaar) 50 mg PO DAILY [facility] Last Admin: 02/21/18 09:28 Dose: 50 mg Oxycodone HCl (Oxycodone Immediate Release Tab) 30 mg PO Q8H PRN PRN Reason: Pain, moderate (4-7) Last Admin: 02/21/18 05:53 Dose: 30 mg Polyethylene Glycol (Miralax) 17 gm PO HS [facility] Last Admin: 02/20/18 21:22 Dose: 17 gm Potassium Chloride (K-Dur 20 Meq Er Tab) 20 meq PO DAILY [facility] Last Admin: 02/21/18 09:27 Dose: 20 meq - Labs Labs: 02/20/18 06:08 02/20/18 06:08 PT 15.0 SECONDS (9.7-12.2) H 02/14/18 22:00 INR 1.4 02/14/18 22:00 APTT 41 SECONDS (21-34) H 02/14/18 22:00
--- NOTE | 2018-02-21 14:58 | CP.PCM.PN ---
Subjective - Date & Time of Evaluation Date of Evaluation: 02/21/18 Time of Evaluation: 14:00 - Subjective Subjective: surgery consult note for Dr. Caceres Pt seen and examined at bedside. Pt denies any complaints or concerns at this time. Objective - Vital Signs/Intake and Output Vital Signs (last 24 hours): Temp Pulse Resp BP Pulse Ox 98.4 F 74 20 139/82 98 02/21/18 07:00 02/21/18 09:26 02/21/18 07:00 02/21/18 09:27 02/21/18 07:00 Intake and Output: 02/21/18 02/21/18 06:59 18:59 Intake Total 420 400 Balance 420 400 - Medications Medications: Current Medications Amlodipine Besylate (Norvasc) 5 mg PO DAILY [facility] Last Admin: 02/21/18 09:28 Dose: 5 mg Apixaban (Eliquis) 5 mg PO BID [facility] Last Admin: 02/21/18 09:28 Dose: 5 mg Carvedilol (Coreg) 25 mg PO BID [facility] Last Admin: 02/21/18 09:27 Dose: 25 mg Clopidogrel Bisulfate (Plavix) 75 mg PO DAILY [facility] Last Admin: 02/21/18 09:28 Dose: 75 mg Diphenhydramine HCl (Benadryl) 25 mg PO Q6 PRN PRN Reason: Itching / Pruritus Meropenem 1 gm/ Sodium (Chloride) 100 mls @ 100 mls/hr IVPB Q8H [facility]; Protocol Last Admin: 02/21/18 09:27 Dose: 100 mls/hr Vancomycin/Sodium Chloride (Vancomycin 1 Gm/Ns 200 Ml) 1 gm in 200 mls @ 133.333 mls/hr IVPB Q12H [facility]; Protocol Stop: 02/25/18 06:01 Last Admin: 02/21/18 05:30 Dose: 133.333 mls/hr Lactobacillus Acidophilus (Bacid Acidophilus) 1 cap PO BID [facility] Last Admin: 02/21/18 09:28 Dose: 1 cap Losartan Potassium (Cozaar) 50 mg PO DAILY [facility] Last Admin: 02/21/18 09:28 Dose: 50 mg Oxycodone HCl (Oxycodone Immediate Release Tab) 30 mg PO Q8H PRN PRN Reason: Pain, moderate (4-7) Last Admin: 02/21/18 05:53 Dose: 30 mg Polyethylene Glycol (Miralax) 17 gm PO HS [facility] Last Admin: 02/20/18 21:22 Dose: 17 gm Potassium Chloride (K-Dur 20 Meq Er Tab) 20 meq PO DAILY [facility] Last Admin: 02/21/18 09:27 Dose: 20 meq - Labs Labs: 02/20/18 06:08 02/20/18 06:08 PT 15.0 SECONDS (9.7-12.2) H 02/14/18 22:00 INR 1.4 02/14/18 22:00 APTT 41 SECONDS (21-34) H 02/14/18 22:00 - Constitutional Appears: Well, Non-toxic, No Acute Distress - Head Exam Head Exam: ATRAUMATIC, NORMOCEPHALIC - Eye Exam Eye Exam: Normal appearance. absent: Conjunctival injection, Scleral icterus - ENT Exam ENT Exam: Mucous Membranes Moist, Normal Oropharynx - Respiratory Exam Respiratory Exam: NORMAL BREATHING PATTERN. absent: Accessory Muscle Use, Respiratory Distress - Cardiovascular Exam Cardiovascular Exam: RRR - GI/Abdominal Exam GI & Abdominal Exam: Soft. absent: Distended, Tenderness - Extremities Exam Extremities Exam: absent: Calf Tenderness, Pedal Edema, Tenderness Additional comments: left arm picc in place, dressing C/D/I, no visible erythema or drainage - Neurological Exam Neurological Exam: Alert, Awake, Oriented x3 - Psychiatric Exam Psychiatric exam: Normal Affect, Normal Mood - Skin Skin Exam: Dry, Normal Color, Warm Assessment and Plan - Assessment and Plan (Free Text) Assessment: 52F with knee infection, and malfunctioning L PICC and L shoulder pain Plan: Patient may complete IV antibiotics per ID recs via a peripheral line. Recommend removing PICC No vascular surgical intervention intended, please reach out to the surgical team for any further questions or concerns Discussed with Dr. Caceres, Annette Decker, PGY2
--- NOTE | 2018-02-21 18:12 | CP.PCM.PN ---
Subjective - Date & Time of Evaluation Date of Evaluation: 02/21/18 Time of Evaluation: 08:00 - Subjective Subjective: SEEN BY SURGERY RECOMMENDATIONS NOTED ALSO C/O PRURITIC RASH TO DICUSS OPTIONS WITH ID ATTENDING DR KAY Objective - Vital Signs/Intake and Output Vital Signs (last 24 hours): Temp Pulse Resp BP Pulse Ox 97.9 F 63 20 119/69 99 02/21/18 15:00 02/21/18 15:00 02/21/18 15:00 02/21/18 15:00 02/21/18 15:00 Intake and Output: 02/21/18 02/21/18 06:59 18:59 Intake Total 420 400 Balance 420 400 - Medications Medications: Current Medications Amlodipine Besylate (Norvasc) 5 mg PO DAILY [facility] Last Admin: 02/21/18 09:28 Dose: 5 mg Apixaban (Eliquis) 5 mg PO BID [facility] Last Admin: 02/21/18 09:28 Dose: 5 mg Carvedilol (Coreg) 25 mg PO BID [facility] Last Admin: 02/21/18 09:27 Dose: 25 mg Clopidogrel Bisulfate (Plavix) 75 mg PO DAILY [facility] Last Admin: 02/21/18 09:28 Dose: 75 mg Diphenhydramine HCl (Benadryl) 25 mg PO Q6 PRN PRN Reason: Itching / Pruritus Meropenem 1 gm/ Sodium (Chloride) 100 mls @ 100 mls/hr IVPB Q8H [facility]; Protocol Last Admin: 02/21/18 17:07 Dose: 100 mls/hr Vancomycin/Sodium Chloride (Vancomycin 1 Gm/Ns 200 Ml) 1 gm in 200 mls @ 133.333 mls/hr IVPB Q12H [facility]; Protocol Stop: 02/25/18 06:01 Last Admin: 02/21/18 17:07 Dose: 133.333 mls/hr Lactobacillus Acidophilus (Bacid Acidophilus) 1 cap PO BID [facility] Last Admin: 02/21/18 17:07 Dose: 1 cap Losartan Potassium (Cozaar) 50 mg PO DAILY [facility] Last Admin: 02/21/18 09:28 Dose: 50 mg Oxycodone HCl (Oxycodone Immediate Release Tab) 30 mg PO Q8H PRN PRN Reason: Pain, moderate (4-7) Last Admin: 02/21/18 05:53 Dose: 30 mg Polyethylene Glycol (Miralax) 17 gm PO HS [facility] Last Admin: 02/20/18 21:22 Dose: 17 gm Potassium Chloride (K-Dur 20 Meq Er Tab) 20 meq PO DAILY [facility] Last Admin: 02/21/18 09:27 Dose: 20 meq - Labs Labs: 02/20/18 06:08 02/20/18 06:08 PT 15.0 SECONDS (9.7-12.2) H 02/14/18 22:00 INR 1.4 02/14/18 22:00 APTT 41 SECONDS (21-34) H 02/14/18 22:00 - Constitutional Appears: Non-toxic, Chronically Ill - Head Exam Head Exam: NORMOCEPHALIC - Eye Exam Eye Exam: absent: Scleral icterus - ENT Exam ENT Exam: Mucous Membranes Dry - Neck Exam Neck Exam: absent: Lymphadenopathy - Respiratory Exam Respiratory Exam: Decreased Breath Sounds - Cardiovascular Exam Cardiovascular Exam: REGULAR RHYTHM, +S1, +S2 - GI/Abdominal Exam GI & Abdominal Exam: Distended - Rectal Exam Rectal Exam: Deferred - Exam Exam: NORMAL INSPECTION - Extremities Exam Extremities Exam: absent: Pedal Edema - Back Exam Back Exam: absent: CVA tenderness (L), CVA tenderness (R) - Neurological Exam Neurological Exam: Alert, Awake - Psychiatric Exam Psychiatric exam: Normal Mood - Skin Skin Exam: Rash Assessment and Plan (1) Anemia Status: Acute (2) PICC (peripherally inserted central catheter) in place Status: Acute (3) Recurrent epistaxis Status: Acute (4) Osteomyelitis Status: Acute (5) History of total left knee replacement (TKR) Status: Acute (6) Infection of total left knee replacement Status: Acute - Assessment and Plan (Free Text) Assessment: SEEN BY SURGERY RECOMMENDATIONS NOTED ALSO C/O PRURITIC RASH TO DICUSS OPTIONS WITH ID ATTENDING DR KAY
[2018-02-21] MEDS ORDERED: DiphenhydrAMINE 50 mg/ml Inj IVP ONE (19:00)
[2018-02-21] MEDS: POLYETHYLENE GLYCOL 3350 17 GM/Dose PACKET PO SCH (21:23)
[2018-02-22] MEDS: Meropenem 1 GM in Sodium Chloride 0.9% 100 ML IVPB SCH ×3 (01:11→18:03)
[2018-02-22] MEDS: Vancomycin 1 gm/NS 200 ml 1 GM/200 ML BAG IVPB SCH (05:00)
[2018-02-22] MEDS ORDERED: Midazolam 2 MG/2 ML VIAL ONE (07:55)
[2018-02-22] MEDS ORDERED: Propofol 10 mg/ml Inj (20 ML) ONE ×3 (07:55→08:18)
[2018-02-22] MEDS ORDERED: Lidocaine 4% (Laryng-O-Jet) Kit MM ONE (07:56)
[2018-02-22] MEDS ORDERED: Phenylephrine 10 mg/ml Inj ONE (07:57)
[2018-02-22] MEDS ORDERED: Etomidate 20 mg/10ml Inj IV ONE (07:57)
[2018-02-22] MEDS ORDERED: ePHEDrine 50 mg/ml Inj ONE (07:57)
[2018-02-22] MEDS: Lactobacillus Acidophilus 500 MU Cap PO SCH ×3 (12:32→18:03)
[2018-02-22] MEDS: Potassium Chloride 20 mEq ER Tab PO SCH (13:56)
[2018-02-22] MEDS: oxyCODONE 30 mg Immediate Release Tab PO PRN ×2 (14:04→21:50)
--- NOTE | 2018-02-22 18:32 | CP.PCM.PN ---
Subjective - Date & Time of Evaluation Date of Evaluation: 02/22/18 Time of Evaluation: 15:00 - Subjective Subjective: dictated Objective - Vital Signs/Intake and Output Vital Signs (last 24 hours): Temp Pulse Resp BP Pulse Ox 98.5 F 68 20 124/85 98 02/22/18 15:03 02/22/18 15:03 02/22/18 15:03 02/22/18 18:04 02/22/18 15:03 Intake and Output: 02/22/18 02/22/18 06:59 18:59 Intake Total 320 Balance 320 - Medications Medications: Current Medications Amlodipine Besylate (Norvasc) 5 mg PO DAILY [facility] Last Admin: 02/22/18 13:56 Dose: 5 mg Apixaban (Eliquis) 5 mg PO BID [facility] Last Admin: 02/21/18 09:28 Dose: 5 mg Carvedilol (Coreg) 25 mg PO BID [facility] Last Admin: 02/22/18 18:04 Dose: 25 mg Clopidogrel Bisulfate (Plavix) 75 mg PO DAILY [facility] Last Admin: 02/22/18 13:56 Dose: 75 mg Diphenhydramine HCl (Benadryl) 25 mg PO Q6 PRN PRN Reason: Itching / Pruritus Last Admin: 02/21/18 21:23 Dose: 25 mg Fluocinonide (Lidex 0.05% Oint) 1 gm TOP QID [facility] Last Admin: 02/22/18 18:03 Dose: 1 appl Meropenem 1 gm/ Sodium (Chloride) 100 mls @ 100 mls/hr IVPB Q8H [facility]; Protocol Last Admin: 02/22/18 18:03 Dose: 100 mls/hr Vancomycin/Sodium Chloride (Vancomycin 1 Gm/Ns 200 Ml) 1 gm in 200 mls @ 133.333 mls/hr IVPB Q12H [facility]; Protocol Stop: 02/25/18 06:01 Last Admin: 02/22/18 05:00 Dose: 133.333 mls/hr Lactobacillus Acidophilus (Bacid Acidophilus) 1 cap PO BID [facility] Last Admin: 02/22/18 18:03 Dose: 1 cap Losartan Potassium (Cozaar) 50 mg PO DAILY [facility] Last Admin: 02/22/18 13:55 Dose: 50 mg Oxycodone HCl (Oxycodone Immediate Release Tab) 30 mg PO Q8H PRN PRN Reason: Pain, moderate (4-7) Last Admin: 02/22/18 14:04 Dose: 30 mg Polyethylene Glycol (Miralax) 17 gm PO HS [facility] Last Admin: 02/21/18 21:23 Dose: Not Given Potassium Chloride (K-Dur 20 Meq Er Tab) 20 meq PO DAILY [facility] Last Admin: 02/22/18 13:56 Dose: 20 meq - Labs Labs: 02/20/18 06:08 02/20/18 06:08 PT 15.0 SECONDS (9.7-12.2) H 02/14/18 22:00 INR 1.4 02/14/18 22:00 APTT 41 SECONDS (21-34) H 02/14/18 22:00
--- NOTE | 2018-02-22 18:51 | CP.PCM.PN ---
Subjective - Date & Time of Evaluation Date of Evaluation: 02/22/18 Time of Evaluation: 09:00 - Subjective Subjective: AFEB RX IN PROGRESS DR KRAFT AWARE Objective - Vital Signs/Intake and Output Vital Signs (last 24 hours): Temp Pulse Resp BP Pulse Ox 98.5 F 68 20 124/85 98 02/22/18 15:03 02/22/18 15:03 02/22/18 15:03 02/22/18 18:04 02/22/18 15:03 Intake and Output: 02/22/18 02/22/18 06:59 18:59 Intake Total 320 Balance 320 - Medications Medications: Current Medications Amlodipine Besylate (Norvasc) 5 mg PO DAILY [facility] Last Admin: 02/22/18 13:56 Dose: 5 mg Apixaban (Eliquis) 5 mg PO BID [facility] Last Admin: 02/21/18 09:28 Dose: 5 mg Carvedilol (Coreg) 25 mg PO BID [facility] Last Admin: 02/22/18 18:04 Dose: 25 mg Clopidogrel Bisulfate (Plavix) 75 mg PO DAILY [facility] Last Admin: 02/22/18 13:56 Dose: 75 mg Diphenhydramine HCl (Benadryl) 25 mg PO Q6 PRN PRN Reason: Itching / Pruritus Last Admin: 02/21/18 21:23 Dose: 25 mg Fluocinonide (Lidex 0.05% Oint) 1 gm TOP QID [facility] Last Admin: 02/22/18 18:03 Dose: 1 appl Meropenem 1 gm/ Sodium (Chloride) 100 mls @ 100 mls/hr IVPB Q8H [facility]; Protocol Last Admin: 02/22/18 18:03 Dose: 100 mls/hr Vancomycin HCl 1 gm/ Sodium (Chloride) 200 mls @ 133.333 mls/hr IVPB Q24H [facility]; Protocol Lactobacillus Acidophilus (Bacid Acidophilus) 1 cap PO BID [facility] Last Admin: 02/22/18 18:03 Dose: 1 cap Losartan Potassium (Cozaar) 50 mg PO DAILY [facility] Last Admin: 02/22/18 13:55 Dose: 50 mg Oxycodone HCl (Oxycodone Immediate Release Tab) 30 mg PO Q8H PRN PRN Reason: Pain, moderate (4-7) Last Admin: 02/22/18 14:04 Dose: 30 mg Polyethylene Glycol (Miralax) 17 gm PO HS [facility] Last Admin: 02/21/18 21:23 Dose: Not Given Potassium Chloride (K-Dur 20 Meq Er Tab) 20 meq PO DAILY [facility] Last Admin: 02/22/18 13:56 Dose: 20 meq - Labs Labs: 02/20/18 06:08 02/20/18 06:08 PT 15.0 SECONDS (9.7-12.2) H 02/14/18 22:00 INR 1.4 02/14/18 22:00 APTT 41 SECONDS (21-34) H 02/14/18 22:00 - Constitutional Appears: Non-toxic, Chronically Ill - Head Exam Head Exam: NORMOCEPHALIC - Eye Exam Eye Exam: PERRL - ENT Exam ENT Exam: Mucous Membranes Dry - Neck Exam Neck Exam: absent: Lymphadenopathy - Respiratory Exam Respiratory Exam: Decreased Breath Sounds - Cardiovascular Exam Cardiovascular Exam: REGULAR RHYTHM - GI/Abdominal Exam GI & Abdominal Exam: Distended - Rectal Exam Rectal Exam: Deferred - Exam Exam: NORMAL INSPECTION Assessment and Plan (1) Anemia Status: Acute (2) PICC (peripherally inserted central catheter) in place Status: Acute (3) Recurrent epistaxis Status: Acute (4) Osteomyelitis Status: Acute (5) History of total left knee replacement (TKR) Status: Acute (6) Infection of total left knee replacement Status: Acute
[2018-02-22 20:24] LABS: ALB/GLOB RATIO 1.3 (1.0-2.1); ALBUMIN 3.9 g/dL (3.5-5.0); ALT/SGPT 30 U/L (9-52); AST/SGOT 32 U/L (14-36); BLOOD UREA NITROGEN 10 mg/dL (7-17); CALCIUM 9.7 mg/dl (8.6-10.4); GFR NON-AFRICAN AMERICAN 52
[2018-02-22] MEDS: POLYETHYLENE GLYCOL 3350 17 GM/Dose PACKET PO SCH (21:52)
--- NOTE | 2018-02-22 22:16 | PN ---
DATE: 02/22/2018 INFECTIOUS DISEASE FOLLOWUP SUBJECTIVE: The patient was afebrile. She underwent a JUDIE, she said the report of which is pending at this time. She also had a perfusion scan. Lexiscan was negative; however, we are waiting for the final by Dr. Reece. She also had a JUDIE she says, but I do not see any report, we will wait for it. The patient denies any rash right now, it has improved by applying cortisone cream and Benadryl she has taken, but there is no rash elsewhere. It was only in the back and I checked the other areas. There is no rash. PICC line was removed as Surgery does not want to put any invasive line in her because she is on Eliquis and Plavix and she had left shoulder swelling, so at this time she is only getting antibiotics from peripheral IV. PHYSICAL EXAMINATION: VITAL SIGNS: Her T-max is 98.5, pulse 68, blood pressure 103/64, respirations are 20. HEENT: Head is atraumatic, normocephalic. NECK: Supple. Left shoulder is not hurting her now, swelling has decreased. CARDIOPULMONARY: S1, S2. Regular. LUNGS: Clear. ABDOMEN: Soft, nontender. No guarding, no rigidity present. EXTREMITIES: Have no edema; especially the left foot. The left knee, I did not check today, but it has a spacer and remains with a soft cast. ASSESSMENT AND PLAN: So at this time, I have decided to continue vancomycin and meropenem as such, she will need 7 days of this. The trough was a little high today, 20, so they are going to repeat it again. If it is 20 again, then maybe I will decrease it to once a day and increase the dose, right now they repeated it, it is 21.8, so we will continue once a day and get a vancomycin random level in a.m. and will discuss with the nurse. So at this time, the patient remains on meropenem and vancomycin and needs seven more days; if the echo was negative, 7 days of these antibiotics. So, we will follow. I think on 02/27/2018, she will also be done with the treatment which we were giving for her left knee and hopefully the joint would be sterile, she needs a followup with Dr. Tamayo, but she only has peripheral IV now, so it may be difficult to send her home, but I want to see the transesophageal echocardiogram report and discuss with the binder caser further plan. Talha Chatman MD
[2018-02-23] MEDS: Meropenem 1 GM in Sodium Chloride 0.9% 100 ML IVPB SCH ×3 (01:00→18:24)
[2018-02-23] MEDS: Vancomycin 1 GM in Sodium Chloride 0.9% 200 ML IVPB SCH (04:26)
--- NOTE | 2018-02-23 05:58 | CARD ---
APPROVED REPORT Date of service: 02/22/2018 EXAM: Transesophageal echocardiogram with color flow Doppler. INDICATION Infection : Rule out subacute bacterial endocarditis Mitral Valve E/A ratio0.0 TDI E/Lateral E'0.0E/Medial E'0.0 <Conclusion> Normal LV systolic function. No VEGETATIONS noted in the aortic, tricuspid, mitral or pulmonic valve. Mild MR, TR. No AI. No thrombus in SERINA. No PFO. No aortic root dissection.
--- NOTE | 2018-02-23 06:15 | CP.PCM.PN ---
Subjective - Date & Time of Evaluation Date of Evaluation: 02/22/18 Time of Evaluation: 10:00 - Subjective Subjective: JUDIE - NO vegetations nL LV function no PFO no SERINA thrombus Objective - Vital Signs/Intake and Output Vital Signs (last 24 hours): Temp Pulse Resp BP Pulse Ox 98.5 F 66 20 126/66 97 02/22/18 23:15 02/22/18 23:15 02/22/18 23:15 02/22/18 23:15 02/22/18 23:15 Intake and Output: 02/22/18 02/23/18 18:59 06:59 Intake Total 420 Balance 420 - Medications Medications: Current Medications Amlodipine Besylate (Norvasc) 5 mg PO DAILY [facility] Last Admin: 02/22/18 13:56 Dose: 5 mg Apixaban (Eliquis) 5 mg PO BID [facility] Last Admin: 02/21/18 09:28 Dose: 5 mg Carvedilol (Coreg) 25 mg PO BID [facility] Last Admin: 02/22/18 18:04 Dose: 25 mg Clopidogrel Bisulfate (Plavix) 75 mg PO DAILY [facility] Last Admin: 02/22/18 13:56 Dose: 75 mg Diphenhydramine HCl (Benadryl) 25 mg PO Q6 PRN PRN Reason: Itching / Pruritus Last Admin: 02/23/18 04:26 Dose: 25 mg Fluocinonide (Lidex 0.05% Oint) 1 gm TOP QID [facility] Last Admin: 02/22/18 21:56 Dose: 1 appl Meropenem 1 gm/ Sodium (Chloride) 100 mls @ 100 mls/hr IVPB Q8H [facility]; Protocol Last Admin: 02/23/18 01:00 Dose: 100 mls/hr Vancomycin HCl 1 gm/ Sodium (Chloride) 200 mls @ 133.333 mls/hr IVPB Q24H [facility]; Protocol Last Admin: 02/23/18 04:26 Dose: 133.333 mls/hr Lactobacillus Acidophilus (Bacid Acidophilus) 1 cap PO BID [facility] Last Admin: 02/22/18 18:03 Dose: 1 cap Losartan Potassium (Cozaar) 50 mg PO DAILY [facility] Last Admin: 02/22/18 13:55 Dose: 50 mg Oxycodone HCl (Oxycodone Immediate Release Tab) 30 mg PO Q8H PRN PRN Reason: Pain, moderate (4-7) Last Admin: 02/22/18 21:50 Dose: 30 mg Polyethylene Glycol (Miralax) 17 gm PO HS [facility] Last Admin: 02/22/18 21:52 Dose: 17 gm Potassium Chloride (K-Dur 20 Meq Er Tab) 20 meq PO DAILY [facility] Last Admin: 02/22/18 13:56 Dose: 20 meq - Labs Labs: 02/20/18 06:08 02/22/18 20:01 PT 15.0 SECONDS (9.7-12.2) H 02/14/18 22:00 INR 1.4 02/14/18 22:00 APTT 41 SECONDS (21-34) H 02/14/18 22:00 - Constitutional Appears: Non-toxic - Eye Exam Eye Exam: absent: Scleral icterus - Neck Exam Neck Exam: Full ROM - Respiratory Exam Respiratory Exam: Decreased Breath Sounds - Cardiovascular Exam Cardiovascular Exam: absent: REGULAR RHYTHM - GI/Abdominal Exam GI & Abdominal Exam: Soft - Extremities Exam Extremities Exam: Calf Tenderness - Neurological Exam Neurological Exam: Alert, Oriented x3 Assessment and Plan - Assessment and Plan (Free Text) Assessment: No vegetations Plan: COnt Abtx as per ID
--- NOTE | 2018-02-23 06:19 | CP.PCM.PN ---
Subjective - Date & Time of Evaluation Date of Evaluation: 02/21/18 Time of Evaluation: 08:00 - Subjective Subjective: afebrile VSS NAD Objective - Vital Signs/Intake and Output Vital Signs (last 24 hours): Temp Pulse Resp BP Pulse Ox 98.5 F 66 20 126/66 97 02/22/18 23:15 02/22/18 23:15 02/22/18 23:15 02/22/18 23:15 02/22/18 23:15 Intake and Output: 02/22/18 02/23/18 18:59 06:59 Intake Total 420 Balance 420 - Medications Medications: Current Medications Amlodipine Besylate (Norvasc) 5 mg PO DAILY [facility] Last Admin: 02/22/18 13:56 Dose: 5 mg Apixaban (Eliquis) 5 mg PO BID [facility] Last Admin: 02/21/18 09:28 Dose: 5 mg Carvedilol (Coreg) 25 mg PO BID [facility] Last Admin: 02/22/18 18:04 Dose: 25 mg Clopidogrel Bisulfate (Plavix) 75 mg PO DAILY [facility] Last Admin: 02/22/18 13:56 Dose: 75 mg Diphenhydramine HCl (Benadryl) 25 mg PO Q6 PRN PRN Reason: Itching / Pruritus Last Admin: 02/23/18 04:26 Dose: 25 mg Fluocinonide (Lidex 0.05% Oint) 1 gm TOP QID [facility] Last Admin: 02/22/18 21:56 Dose: 1 appl Meropenem 1 gm/ Sodium (Chloride) 100 mls @ 100 mls/hr IVPB Q8H [facility]; Protocol Last Admin: 02/23/18 01:00 Dose: 100 mls/hr Vancomycin HCl 1 gm/ Sodium (Chloride) 200 mls @ 133.333 mls/hr IVPB Q24H [facility]; Protocol Last Admin: 02/23/18 04:26 Dose: 133.333 mls/hr Lactobacillus Acidophilus (Bacid Acidophilus) 1 cap PO BID [facility] Last Admin: 02/22/18 18:03 Dose: 1 cap Losartan Potassium (Cozaar) 50 mg PO DAILY [facility] Last Admin: 02/22/18 13:55 Dose: 50 mg Oxycodone HCl (Oxycodone Immediate Release Tab) 30 mg PO Q8H PRN PRN Reason: Pain, moderate (4-7) Last Admin: 02/22/18 21:50 Dose: 30 mg Polyethylene Glycol (Miralax) 17 gm PO HS [facility] Last Admin: 02/22/18 21:52 Dose: 17 gm Potassium Chloride (K-Dur 20 Meq Er Tab) 20 meq PO DAILY [facility] Last Admin: 02/22/18 13:56 Dose: 20 meq - Labs Labs: 02/20/18 06:08 02/22/18 20:01 PT 15.0 SECONDS (9.7-12.2) H 02/14/18 22:00 INR 1.4 02/14/18 22:00 APTT 41 SECONDS (21-34) H 02/14/18 22:00 - Constitutional Appears: Non-toxic - Head Exam Head Exam: NORMOCEPHALIC - Eye Exam Eye Exam: absent: Scleral icterus - Neck Exam Neck Exam: Full ROM - Respiratory Exam Respiratory Exam: NORMAL BREATHING PATTERN - Cardiovascular Exam Cardiovascular Exam: REGULAR RHYTHM - GI/Abdominal Exam GI & Abdominal Exam: Soft - Extremities Exam Extremities Exam: absent: Pedal Edema Assessment and Plan - Assessment and Plan (Free Text) Assessment: r/o infective endocarditis Plan: Case discussed with Dr Chatman JUDIE in the morning to rule out infective endocarditis
[2018-02-23] MEDS: oxyCODONE 30 mg Immediate Release Tab PO PRN ×2 (06:25→18:32)
[2018-02-23 07:34] LABS: BASO % 0.5 % (0.0-2.0); EOS # 0.3 K/uL (0.0-0.7); EOS % 6.2 % (0.0-4.0); HEMOGLOBIN 9.4 g/dL (11.0-16.0); LYMPH # 1.2 K/uL (1.0-4.3); LYMPH % 24.2 % (20.0-40.0); MEAN CORPUSCULAR HEMOGLOBIN 27.6 pg (27.0-31.0); MEAN CORPUSCULAR HGB CONC 34.1 g/dL (33.0-37.0); MEAN PLATELET VOLUME 9.9 fL (7.2-11.7); MONO # 0.8 K/uL (0.0-0.8); MONO % 15.9 % (0.0-10.0); NEUT # 2.7 K/uL (1.8-7.0); NEUT % 53.2 % (50.0-75.0); RBC 3.41 Mil/uL (3.80-5.20); RED CELL DISTRIBUTION WIDTH 14.4 % (11.5-14.5)
[2018-02-23] MEDS: Lactobacillus Acidophilus 500 MU Cap PO SCH ×2 (10:46→18:24)
[2018-02-23] MEDS: Potassium Chloride 20 mEq ER Tab PO SCH (10:46)
--- NOTE | 2018-02-23 14:46 | CP.PCM.PN ---
Subjective - Date & Time of Evaluation Date of Evaluation: 02/23/18 Time of Evaluation: 14:25 - Subjective Subjective: dictated Objective - Vital Signs/Intake and Output Vital Signs (last 24 hours): Temp Pulse Resp BP Pulse Ox 98.3 F 70 20 145/83 97 02/23/18 08:00 02/23/18 08:00 02/23/18 08:00 02/23/18 10:47 02/23/18 08:00 Intake and Output: 02/23/18 02/23/18 06:59 18:59 Intake Total 940 Balance 940 - Medications Medications: Current Medications Amlodipine Besylate (Norvasc) 5 mg PO DAILY [facility] Last Admin: 02/23/18 10:47 Dose: 5 mg Apixaban (Eliquis) 5 mg PO BID [facility] Last Admin: 02/21/18 09:28 Dose: 5 mg Carvedilol (Coreg) 25 mg PO BID [facility] Last Admin: 02/23/18 10:47 Dose: 25 mg Clopidogrel Bisulfate (Plavix) 75 mg PO DAILY [facility] Last Admin: 02/23/18 10:46 Dose: 75 mg Diphenhydramine HCl (Benadryl) 25 mg PO Q6 PRN PRN Reason: Itching / Pruritus Last Admin: 02/23/18 10:50 Dose: 25 mg Fluocinonide (Lidex 0.05% Oint) 1 gm TOP QID [facility] Last Admin: 02/23/18 14:18 Dose: 1 appl Meropenem 1 gm/ Sodium (Chloride) 100 mls @ 100 mls/hr IVPB Q8H [facility]; Protocol Last Admin: 02/23/18 10:48 Dose: 100 mls/hr Vancomycin HCl 1 gm/ Sodium (Chloride) 200 mls @ 133.333 mls/hr IVPB Q24H [facility]; Protocol Last Admin: 02/23/18 04:26 Dose: 133.333 mls/hr Lactobacillus Acidophilus (Bacid Acidophilus) 1 cap PO BID [facility] Last Admin: 02/23/18 10:46 Dose: 1 cap Losartan Potassium (Cozaar) 50 mg PO DAILY [facility] Last Admin: 02/23/18 10:58 Dose: 50 mg Oxycodone HCl (Oxycodone Immediate Release Tab) 30 mg PO Q8H PRN PRN Reason: Pain, moderate (4-7) Last Admin: 02/23/18 06:25 Dose: 30 mg Polyethylene Glycol (Miralax) 17 gm PO HS [facility] Last Admin: 02/22/18 21:52 Dose: 17 gm Potassium Chloride (K-Dur 20 Meq Er Tab) 20 meq PO DAILY [facility] Last Admin: 02/23/18 10:46 Dose: 20 meq - Labs Labs: 02/23/18 07:00 02/22/18 20:01 PT 15.0 SECONDS (9.7-12.2) H 02/14/18 22:00 INR 1.4 02/14/18 22:00 APTT 41 SECONDS (21-34) H 02/14/18 22:00
--- NOTE | 2018-02-23 17:29 | CP.PCM.PN ---
Subjective - Date & Time of Evaluation Date of Evaluation: 02/23/18 Time of Evaluation: 08:00 - Subjective Subjective: less rashes awake alert no fever Objective - Vital Signs/Intake and Output Vital Signs (last 24 hours): Temp Pulse Resp BP Pulse Ox 98.5 F 75 20 125/77 98 02/23/18 15:26 02/23/18 15:26 02/23/18 15:26 02/23/18 15:26 02/23/18 15:26 Intake and Output: 02/23/18 02/23/18 06:59 18:59 Intake Total 940 Balance 940 - Medications Medications: Current Medications Amlodipine Besylate (Norvasc) 5 mg PO DAILY [facility] Last Admin: 02/23/18 10:47 Dose: 5 mg Apixaban (Eliquis) 5 mg PO BID [facility] Last Admin: 02/21/18 09:28 Dose: 5 mg Carvedilol (Coreg) 25 mg PO BID [facility] Last Admin: 02/23/18 10:47 Dose: 25 mg Clopidogrel Bisulfate (Plavix) 75 mg PO DAILY [facility] Last Admin: 02/23/18 10:46 Dose: 75 mg Diphenhydramine HCl (Benadryl) 25 mg PO Q6 PRN PRN Reason: Itching / Pruritus Last Admin: 02/23/18 10:50 Dose: 25 mg Fluocinonide (Lidex 0.05% Oint) 1 gm TOP QID [facility] Last Admin: 02/23/18 14:18 Dose: 1 appl Meropenem 1 gm/ Sodium (Chloride) 100 mls @ 100 mls/hr IVPB Q8H [facility]; Protocol Last Admin: 02/23/18 10:48 Dose: 100 mls/hr Vancomycin HCl 1 gm/ Sodium (Chloride) 200 mls @ 133.333 mls/hr IVPB Q24H [facility]; Protocol Last Admin: 02/23/18 04:26 Dose: 133.333 mls/hr Lactobacillus Acidophilus (Bacid Acidophilus) 1 cap PO BID [facility] Last Admin: 02/23/18 10:46 Dose: 1 cap Losartan Potassium (Cozaar) 50 mg PO DAILY [facility] Last Admin: 02/23/18 10:58 Dose: 50 mg Oxycodone HCl (Oxycodone Immediate Release Tab) 30 mg PO Q8H PRN PRN Reason: Pain, moderate (4-7) Last Admin: 02/23/18 06:25 Dose: 30 mg Polyethylene Glycol (Miralax) 17 gm PO HS [facility] Last Admin: 02/22/18 21:52 Dose: 17 gm Potassium Chloride (K-Dur 20 Meq Er Tab) 20 meq PO DAILY [facility] Last Admin: 02/23/18 10:46 Dose: 20 meq - Labs Labs: 02/23/18 07:00 02/22/18 20:01 PT 15.0 SECONDS (9.7-12.2) H 02/14/18 22:00 INR 1.4 02/14/18 22:00 APTT 41 SECONDS (21-34) H 02/14/18 22:00 - Constitutional Appears: Non-toxic, Chronically Ill - Head Exam Head Exam: NORMOCEPHALIC - Eye Exam Eye Exam: PERRL - ENT Exam ENT Exam: Mucous Membranes Dry - Neck Exam Neck Exam: absent: Lymphadenopathy - Respiratory Exam Respiratory Exam: Decreased Breath Sounds - Cardiovascular Exam Cardiovascular Exam: REGULAR RHYTHM - GI/Abdominal Exam GI & Abdominal Exam: Distended - Rectal Exam Rectal Exam: Deferred - Exam Exam: NORMAL INSPECTION - Extremities Exam Extremities Exam: absent: Pedal Edema - Back Exam Back Exam: absent: CVA tenderness (L), CVA tenderness (R) - Neurological Exam Neurological Exam: Alert, Awake Assessment and Plan (1) Anemia Status: Acute (2) PICC (peripherally inserted central catheter) in place Status: Acute (3) Recurrent epistaxis Status: Acute (4) Osteomyelitis Status: Acute (5) History of total left knee replacement (TKR) Status: Acute (6) Infection of total left knee replacement Status: Acute - Assessment and Plan (Free Text) Assessment: cont iv rx as per Dr Chatman cannot go home with peripheral IV
[2018-02-23] MEDS: POLYETHYLENE GLYCOL 3350 17 GM/Dose PACKET PO SCH (21:54)
--- NOTE | 2018-02-23 22:37 | PN ---
DATE: 02/23/2018 SUBJECTIVE: The patient was feeling little better today. She has no more rashes. Her PICC line has been discontinued. She has been getting peripheral antibiotics with a small Hep-Lock. She is on vancomycin and Merrem, and she denies any nausea, no vomiting, no diarrhea. She is tolerating IV, and no new rashes noted. She is taking off and on Benadryl. PHYSICAL EXAMINATION: VITAL SIGNS: T-max is 98.5, pulse 75, blood pressure 125/77, and respirations are 20. HEAD: Atraumatic, normocephalic. NECK: Supple. LUNGS: Clear. HEART: S1, S2 are regular. ABDOMEN: Soft, nontender. No guarding, no rigidity present. EXTREMITIES: Left leg, she has a spacer present and she has a soft cast. ASSESSMENT AND PLAN: The patient is waiting to get a new left knee which is important for her to mobilize, and she wants to also go home. Her last culture was streptococcal viridans on 02/15/2018. I am told that she is negative for any vegetations. She got 8 days worth of treatment. She is looking for six more days of antibiotics, and then, the antibiotics can be discontinued and she will need to follow with her orthopedist. I will do the laboratories tomorrow again with CBC, differential, and CMP and an ESR, so that we can see if the ESR is decreasing. In spite of all of these complications that came away, the shoulder is looking better. She is not complaining of any more shoulder pain, so we will follow. She did come in with a peripherally inserted central catheter line nonfunctioning and strep viridans bacteremia, had complication with the change of the peripherally inserted central catheter line which we removed and still seen too many issues than rash, and we will continue IV antibiotics at this time. Talha Chatman MD
[2018-02-24] MEDS: Meropenem 1 GM in Sodium Chloride 0.9% 100 ML IVPB SCH ×3 (02:06→18:16)
[2018-02-24] MEDS: oxyCODONE 30 mg Immediate Release Tab PO PRN ×3 (05:40→23:15)
[2018-02-24] MEDS: Vancomycin 1 GM in Sodium Chloride 0.9% 200 ML IVPB SCH (05:41)
[2018-02-24] MEDS: Potassium Chloride 20 mEq ER Tab PO SCH (09:06)
[2018-02-24] MEDS: Lactobacillus Acidophilus 500 MU Cap PO SCH ×2 (09:06→18:15)
[2018-02-24 12:00] LABS: BASO % 0.8 % (0.0-2.0); EOS # 0.3 K/uL (0.0-0.7); HEMOGLOBIN 9.6 g/dL (11.0-16.0); LYMPH # 1.1 K/uL (1.0-4.3); LYMPH % 23.3 % (20.0-40.0); MEAN CELL VOLUME 81.5 fL (81.0-99.0); MEAN CORPUSCULAR HEMOGLOBIN 26.7 pg (27.0-31.0); MEAN CORPUSCULAR HGB CONC 32.8 g/dL (33.0-37.0); MEAN PLATELET VOLUME 10.3 fL (7.2-11.7); MONO # 0.6 K/uL (0.0-0.8); MONO % 12.6 % (0.0-10.0); NEUT # 2.8 K/uL (1.8-7.0); NEUT % 57.3 % (50.0-75.0); RBC 3.58 Mil/uL (3.80-5.20); RED CELL DISTRIBUTION WIDTH 14.3 % (11.5-14.5); WHITE BLOOD COUNT 4.9 K/uL (4.8-10.8)
[2018-02-24 12:14] LABS: ALB/GLOB RATIO 1.2 (1.0-2.1); ALBUMIN 3.6 g/dL (3.5-5.0); ALT/SGPT 31 U/L (9-52); AST/SGOT 37 U/L (14-36); BLOOD UREA NITROGEN 12 mg/dL (7-17); CALCIUM 9.6 mg/dl (8.6-10.4); GFR NON-AFRICAN AMERICAN 58
[2018-02-24 17:00] VITALS: RESP 20
--- NOTE | 2018-02-24 19:10 | CP.PCM.PN ---
Subjective - Date & Time of Evaluation Date of Evaluation: 02/24/18 Time of Evaluation: 15:20 - Subjective Subjective: dictated Objective - Vital Signs/Intake and Output Vital Signs (last 24 hours): Temp Pulse Resp BP Pulse Ox 98.0 F 74 20 120/70 97 02/24/18 15:00 02/24/18 15:00 02/24/18 15:00 02/24/18 18:15 02/24/18 15:00 Intake and Output: 02/24/18 02/25/18 18:59 06:59 Intake Total 580 Balance 580 - Medications Medications: Current Medications Amlodipine Besylate (Norvasc) 5 mg PO DAILY [facility] Last Admin: 02/24/18 09:06 Dose: 5 mg Apixaban (Eliquis) 5 mg PO BID [facility] Last Admin: 02/21/18 09:28 Dose: 5 mg Carvedilol (Coreg) 25 mg PO BID [facility] Last Admin: 02/24/18 18:15 Dose: 25 mg Clopidogrel Bisulfate (Plavix) 75 mg PO DAILY [facility] Last Admin: 02/24/18 09:05 Dose: 75 mg Diphenhydramine HCl (Benadryl) 25 mg PO Q6 PRN PRN Reason: Itching / Pruritus Last Admin: 02/23/18 10:50 Dose: 25 mg Fluocinonide (Lidex 0.05% Oint) 1 gm TOP QID [facility] Last Admin: 02/24/18 13:53 Dose: 1 appl Meropenem 1 gm/ Sodium (Chloride) 100 mls @ 100 mls/hr IVPB Q8H [facility]; Protocol Last Admin: 02/24/18 18:16 Dose: 100 mls/hr Vancomycin HCl 1 gm/ Sodium (Chloride) 200 mls @ 133.333 mls/hr IVPB Q24H [facility]; Protocol Last Admin: 02/24/18 05:41 Dose: 133.333 mls/hr Lactobacillus Acidophilus (Bacid Acidophilus) 1 cap PO BID [facility] Last Admin: 02/24/18 18:15 Dose: 1 cap Losartan Potassium (Cozaar) 50 mg PO DAILY [facility] Last Admin: 02/24/18 09:06 Dose: 50 mg Oxycodone HCl (Oxycodone Immediate Release Tab) 30 mg PO Q8H PRN PRN Reason: Pain, moderate (4-7) Last Admin: 02/24/18 13:27 Dose: 30 mg Polyethylene Glycol (Miralax) 17 gm PO HS [facility] Last Admin: 02/23/18 21:54 Dose: 17 gm Potassium Chloride (K-Dur 20 Meq Er Tab) 20 meq PO DAILY [facility] Last Admin: 02/24/18 09:06 Dose: 20 meq - Labs Labs: 02/24/18 11:36 02/24/18 11:36 PT 15.0 SECONDS (9.7-12.2) H 02/14/18 22:00 INR 1.4 02/14/18 22:00 APTT 41 SECONDS (21-34) H 02/14/18 22:00
[2018-02-24] MEDS: POLYETHYLENE GLYCOL 3350 17 GM/Dose PACKET PO SCH (21:28)
--- NOTE | 2018-02-24 23:43 | PN ---
DATE: 02/24/2018 SUBJECTIVE: The patient, Laura Stovall, was seen today. She wants to go home; however, she has to complete this treatment for Strep viridans that she had. Also, she is on IV other antibiotics. She is on vancomycin and Merrem at this time. She says the left shoulder still hurts, but it is getting better. She denies any problems with the right arm at this time. She has no new rashes. No new fever. She needs, however, antibiotic at this time. She still has pain in the left spacer. She was showing me photographs of her surgery before. PHYSICAL EXAMINATION: VITAL SIGNS: T-max is 98, pulse is 74, blood pressure is 120/70, respirations are 20, saturation 97%. HEENT: Head is atraumatic and normocephalic. NECK: Supple. LUNGS: Clear. HEART: S1 and S2 are regular. ABDOMEN: Soft, nontender. No guarding, no rigidity present. EXTREMITIES: The left side has a soft cast. No edema on the feet at this time. ASSESSMENT AND PLAN: She uses crutches when she has to go to the bathroom. I have decreased the dose of vancomycin as the trough was high, and we repeated it twice. At this time, the patient is getting it once a day. Her erythrocyte sedimentation rate came out 35, last week it was 29, so we need to monitor that. We will repeat it again before she is discharged. C-reactive protein is 18.7 which was done today. We will continue present antibiotics and make sure they are renewed. The patient has multiple issues. She has now peripherally inserted central catheter line related Streptococcus viridans infection. Transesophageal echocardiography is negative. She has a spacer in the left knee and is waiting for a new knee replacement with Dr. Tamayo. Talha Chatman MD
--- NOTE | 2018-02-25 00:25 | CP.PCM.PN ---
Subjective - Date & Time of Evaluation Date of Evaluation: 02/24/18 Time of Evaluation: 11:50 - Subjective Subjective: afebrile NAD no chest pain Objective - Vital Signs/Intake and Output Vital Signs (last 24 hours): Temp Pulse Resp BP Pulse Ox 98.0 F 74 20 120/70 97 02/24/18 15:00 02/24/18 15:00 02/24/18 15:00 02/24/18 18:15 02/24/18 15:00 Intake and Output: 02/24/18 02/25/18 18:59 06:59 Intake Total 580 Balance 580 - Medications Medications: Current Medications Amlodipine Besylate (Norvasc) 5 mg PO DAILY [facility] Last Admin: 02/24/18 09:06 Dose: 5 mg Apixaban (Eliquis) 5 mg PO BID [facility] Last Admin: 02/21/18 09:28 Dose: 5 mg Carvedilol (Coreg) 25 mg PO BID [facility] Last Admin: 02/24/18 18:15 Dose: 25 mg Clopidogrel Bisulfate (Plavix) 75 mg PO DAILY [facility] Last Admin: 02/24/18 09:05 Dose: 75 mg Diphenhydramine HCl (Benadryl) 25 mg PO Q6 PRN PRN Reason: Itching / Pruritus Last Admin: 02/23/18 10:50 Dose: 25 mg Fluocinonide (Lidex 0.05% Oint) 1 gm TOP QID [facility] Last Admin: 02/24/18 21:28 Dose: 1 appl Meropenem 1 gm/ Sodium (Chloride) 100 mls @ 100 mls/hr IVPB Q8H [facility]; Protocol Last Admin: 02/24/18 18:16 Dose: 100 mls/hr Vancomycin HCl 1 gm/ Sodium (Chloride) 200 mls @ 133.333 mls/hr IVPB Q24H [facility]; Protocol Last Admin: 02/24/18 05:41 Dose: 133.333 mls/hr Lactobacillus Acidophilus (Bacid Acidophilus) 1 cap PO BID [facility] Last Admin: 02/24/18 18:15 Dose: 1 cap Losartan Potassium (Cozaar) 50 mg PO DAILY [facility] Last Admin: 02/24/18 09:06 Dose: 50 mg Oxycodone HCl (Oxycodone Immediate Release Tab) 30 mg PO Q8H PRN PRN Reason: Pain, moderate (4-7) Last Admin: 02/24/18 23:15 Dose: 30 mg Polyethylene Glycol (Miralax) 17 gm PO HS [facility] Last Admin: 02/24/18 21:28 Dose: 17 gm Potassium Chloride (K-Dur 20 Meq Er Tab) 20 meq PO DAILY [facility] Last Admin: 02/24/18 09:06 Dose: 20 meq - Labs Labs: 02/24/18 11:36 02/24/18 11:36 PT 15.0 SECONDS (9.7-12.2) H 02/14/18 22:00 INR 1.4 02/14/18 22:00 APTT 41 SECONDS (21-34) H 02/14/18 22:00 - Constitutional Appears: Non-toxic - Eye Exam Eye Exam: absent: Scleral icterus - Neck Exam Neck Exam: Full ROM - Respiratory Exam Respiratory Exam: NORMAL BREATHING PATTERN - Cardiovascular Exam Cardiovascular Exam: REGULAR RHYTHM - GI/Abdominal Exam GI & Abdominal Exam: Soft. absent: Tenderness - Extremities Exam Additional comments: infected left TKR - Neurological Exam Neurological Exam: Alert, Oriented x3 Assessment and Plan - Assessment and Plan (Free Text) Assessment: Infected Left TKR Osteomyelitis HTN Plan: Cont abtx COnt meds
--- NOTE | 2018-02-25 00:29 | CP.PCM.PN ---
Subjective - Date & Time of Evaluation Date of Evaluation: 02/23/18 Time of Evaluation: 11:45 - Subjective Subjective: c/o pain in left TKR afebrile no further chest pain Objective - Vital Signs/Intake and Output Vital Signs (last 24 hours): Temp Pulse Resp BP Pulse Ox 98.0 F 74 20 120/70 97 02/24/18 15:00 02/24/18 15:00 02/24/18 15:00 02/24/18 18:15 02/24/18 15:00 Intake and Output: 02/24/18 02/25/18 18:59 06:59 Intake Total 580 Balance 580 - Medications Medications: Current Medications Amlodipine Besylate (Norvasc) 5 mg PO DAILY [facility] Last Admin: 02/24/18 09:06 Dose: 5 mg Apixaban (Eliquis) 5 mg PO BID [facility] Last Admin: 02/21/18 09:28 Dose: 5 mg Carvedilol (Coreg) 25 mg PO BID [facility] Last Admin: 02/24/18 18:15 Dose: 25 mg Clopidogrel Bisulfate (Plavix) 75 mg PO DAILY [facility] Last Admin: 02/24/18 09:05 Dose: 75 mg Diphenhydramine HCl (Benadryl) 25 mg PO Q6 PRN PRN Reason: Itching / Pruritus Last Admin: 02/23/18 10:50 Dose: 25 mg Fluocinonide (Lidex 0.05% Oint) 1 gm TOP QID [facility] Last Admin: 02/24/18 21:28 Dose: 1 appl Meropenem 1 gm/ Sodium (Chloride) 100 mls @ 100 mls/hr IVPB Q8H [facility]; Protocol Last Admin: 02/24/18 18:16 Dose: 100 mls/hr Vancomycin HCl 1 gm/ Sodium (Chloride) 200 mls @ 133.333 mls/hr IVPB Q24H [facility]; Protocol Last Admin: 02/24/18 05:41 Dose: 133.333 mls/hr Lactobacillus Acidophilus (Bacid Acidophilus) 1 cap PO BID [facility] Last Admin: 02/24/18 18:15 Dose: 1 cap Losartan Potassium (Cozaar) 50 mg PO DAILY [facility] Last Admin: 02/24/18 09:06 Dose: 50 mg Oxycodone HCl (Oxycodone Immediate Release Tab) 30 mg PO Q8H PRN PRN Reason: Pain, moderate (4-7) Last Admin: 02/24/18 23:15 Dose: 30 mg Polyethylene Glycol (Miralax) 17 gm PO HS [facility] Last Admin: 02/24/18 21:28 Dose: 17 gm Potassium Chloride (K-Dur 20 Meq Er Tab) 20 meq PO DAILY [facility] Last Admin: 02/24/18 09:06 Dose: 20 meq - Labs Labs: 02/24/18 11:36 02/24/18 11:36 PT 15.0 SECONDS (9.7-12.2) H 02/14/18 22:00 INR 1.4 02/14/18 22:00 APTT 41 SECONDS (21-34) H 02/14/18 22:00 - Constitutional Appears: Non-toxic - Eye Exam Eye Exam: absent: Scleral icterus - ENT Exam ENT Exam: Mucous Membranes Moist - Neck Exam Neck Exam: Full ROM - Respiratory Exam Respiratory Exam: NORMAL BREATHING PATTERN - Cardiovascular Exam Cardiovascular Exam: REGULAR RHYTHM - GI/Abdominal Exam GI & Abdominal Exam: Soft, Normal Bowel Sounds. absent: Tenderness - Extremities Exam Extremities Exam: absent: Pedal Edema Assessment and Plan - Assessment and Plan (Free Text) Assessment: Infected left TKR Osteomyelitis Anemia Chest pain Plan: Cont abtx [facility]
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
--- NOTE | 2018-02-25 00:51 | CP.PCM.PN ---
Subjective - Date & Time of Evaluation Date of Evaluation: 02/17/18 Time of Evaluation: 09:00 - Subjective Subjective: seen by ID and heme no chest pain Objective - Vital Signs/Intake and Output Vital Signs (last 24 hours): Temp Pulse Resp BP Pulse Ox 98.3 F 76 20 131/71 97 02/24/18 23:30 02/24/18 23:30 02/24/18 23:30 02/24/18 23:30 02/24/18 23:30 Intake and Output: 02/24/18 02/25/18 18:59 06:59 Intake Total 580 Balance 580 - Medications Medications: Current Medications Amlodipine Besylate (Norvasc) 5 mg PO DAILY [facility] Last Admin: 02/24/18 09:06 Dose: 5 mg Apixaban (Eliquis) 5 mg PO BID [facility] Last Admin: 02/21/18 09:28 Dose: 5 mg Carvedilol (Coreg) 25 mg PO BID [facility] Last Admin: 02/24/18 18:15 Dose: 25 mg Clopidogrel Bisulfate (Plavix) 75 mg PO DAILY [facility] Last Admin: 02/24/18 09:05 Dose: 75 mg Diphenhydramine HCl (Benadryl) 25 mg PO Q6 PRN PRN Reason: Itching / Pruritus Last Admin: 02/23/18 10:50 Dose: 25 mg Fluocinonide (Lidex 0.05% Oint) 1 gm TOP QID [facility] Last Admin: 02/24/18 21:28 Dose: 1 appl Meropenem 1 gm/ Sodium (Chloride) 100 mls @ 100 mls/hr IVPB Q8H [facility]; Protocol Last Admin: 02/24/18 18:16 Dose: 100 mls/hr Vancomycin HCl 1 gm/ Sodium (Chloride) 200 mls @ 133.333 mls/hr IVPB Q24H [facility]; Protocol Last Admin: 02/24/18 05:41 Dose: 133.333 mls/hr Lactobacillus Acidophilus (Bacid Acidophilus) 1 cap PO BID [facility] Last Admin: 02/24/18 18:15 Dose: 1 cap Losartan Potassium (Cozaar) 50 mg PO DAILY [facility] Last Admin: 02/24/18 09:06 Dose: 50 mg Oxycodone HCl (Oxycodone Immediate Release Tab) 30 mg PO Q8H PRN PRN Reason: Pain, moderate (4-7) Last Admin: 02/24/18 23:15 Dose: 30 mg Polyethylene Glycol (Miralax) 17 gm PO HS [facility] Last Admin: 02/24/18 21:28 Dose: 17 gm Potassium Chloride (K-Dur 20 Meq Er Tab) 20 meq PO DAILY [facility] Last Admin: 02/24/18 09:06 Dose: 20 meq - Labs Labs: 02/24/18 11:36 02/24/18 11:36 PT 15.0 SECONDS (9.7-12.2) H 02/14/18 22:00 INR 1.4 02/14/18 22:00 APTT 41 SECONDS (21-34) H 02/14/18 22:00 - Constitutional Appears: Non-toxic - Head Exam Head Exam: NORMAL INSPECTION - Eye Exam Eye Exam: absent: Scleral icterus - ENT Exam ENT Exam: Mucous Membranes Moist - Neck Exam Neck Exam: Full ROM - Cardiovascular Exam Cardiovascular Exam: REGULAR RHYTHM - GI/Abdominal Exam GI & Abdominal Exam: Soft - Extremities Exam Extremities Exam: absent: Pedal Edema - Neurological Exam Neurological Exam: Alert, Oriented x3 Assessment and Plan - Assessment and Plan (Free Text) Assessment: Infected left TKR Osteomyelitis Anemia Plan: Cont Abtx
--- NOTE | 2018-02-25 00:56 | CP.PCM.PN ---
Subjective - Date & Time of Evaluation Date of Evaluation: 02/20/18 Time of Evaluation: 08:00 - Subjective Subjective: c/o pain and swelling in left arm and shoulder will consult with vascular Objective - Vital Signs/Intake and Output Vital Signs (last 24 hours): Temp Pulse Resp BP Pulse Ox 98.3 F 76 20 131/71 97 02/24/18 23:30 02/24/18 23:30 02/24/18 23:30 02/24/18 23:30 02/24/18 23:30 Intake and Output: 02/24/18 02/25/18 18:59 06:59 Intake Total 580 Balance 580 - Medications Medications: Current Medications Amlodipine Besylate (Norvasc) 5 mg PO DAILY [facility] Last Admin: 02/24/18 09:06 Dose: 5 mg Apixaban (Eliquis) 5 mg PO BID [facility] Last Admin: 02/21/18 09:28 Dose: 5 mg Carvedilol (Coreg) 25 mg PO BID [facility] Last Admin: 02/24/18 18:15 Dose: 25 mg Clopidogrel Bisulfate (Plavix) 75 mg PO DAILY [facility] Last Admin: 02/24/18 09:05 Dose: 75 mg Diphenhydramine HCl (Benadryl) 25 mg PO Q6 PRN PRN Reason: Itching / Pruritus Last Admin: 02/23/18 10:50 Dose: 25 mg Fluocinonide (Lidex 0.05% Oint) 1 gm TOP QID [facility] Last Admin: 02/24/18 21:28 Dose: 1 appl Meropenem 1 gm/ Sodium (Chloride) 100 mls @ 100 mls/hr IVPB Q8H [facility]; Protocol Last Admin: 02/24/18 18:16 Dose: 100 mls/hr Vancomycin HCl 1 gm/ Sodium (Chloride) 200 mls @ 133.333 mls/hr IVPB Q24H [facility]; Protocol Last Admin: 02/24/18 05:41 Dose: 133.333 mls/hr Lactobacillus Acidophilus (Bacid Acidophilus) 1 cap PO BID [facility] Last Admin: 02/24/18 18:15 Dose: 1 cap Losartan Potassium (Cozaar) 50 mg PO DAILY [facility] Last Admin: 02/24/18 09:06 Dose: 50 mg Oxycodone HCl (Oxycodone Immediate Release Tab) 30 mg PO Q8H PRN PRN Reason: Pain, moderate (4-7) Last Admin: 02/24/18 23:15 Dose: 30 mg Polyethylene Glycol (Miralax) 17 gm PO HS [facility] Last Admin: 02/24/18 21:28 Dose: 17 gm Potassium Chloride (K-Dur 20 Meq Er Tab) 20 meq PO DAILY [facility] Last Admin: 02/24/18 09:06 Dose: 20 meq - Labs Labs: 02/24/18 11:36 02/24/18 11:36 PT 15.0 SECONDS (9.7-12.2) H 02/14/18 22:00 INR 1.4 02/14/18 22:00 APTT 41 SECONDS (21-34) H 02/14/18 22:00 - Constitutional Appears: Non-toxic - Head Exam Head Exam: NORMAL INSPECTION - Eye Exam Eye Exam: absent: Scleral icterus - Respiratory Exam Respiratory Exam: NORMAL BREATHING PATTERN - Cardiovascular Exam Cardiovascular Exam: REGULAR RHYTHM - GI/Abdominal Exam GI & Abdominal Exam: Soft - Extremities Exam Extremities Exam: absent: Pedal Edema Additional comments: +infected TKR, left knee Anemia OM of left knee Assessment and Plan - Assessment and Plan (Free Text) Assessment: Swelling left arm and shoulder OM of left TKR Anemia Plan: Dr Caceres to eval patient Cont abtx
[2018-02-25] MEDS: Meropenem 1 GM in Sodium Chloride 0.9% 100 ML IVPB SCH ×3 (02:45→18:48)
[2018-02-25] MEDS: Vancomycin 1 GM in Sodium Chloride 0.9% 200 ML IVPB SCH (04:03)
[2018-02-25] MEDS: oxyCODONE 30 mg Immediate Release Tab PO PRN ×2 (09:26→18:51)
[2018-02-25] MEDS: Lactobacillus Acidophilus 500 MU Cap PO SCH ×2 (09:27→18:49)
[2018-02-25] MEDS: Potassium Chloride 20 mEq ER Tab PO SCH (09:27)
--- NOTE | 2018-02-25 15:00 | CP.PCM.PN ---
Subjective - Date & Time of Evaluation Date of Evaluation: 02/25/18 Time of Evaluation: 08:00 - Subjective Subjective: slow progress iv rx reordered Objective - Vital Signs/Intake and Output Vital Signs (last 24 hours): Temp Pulse Resp BP Pulse Ox 98.4 F 70 20 120/70 98 02/25/18 07:00 02/25/18 07:00 02/25/18 07:00 02/25/18 09:27 02/25/18 07:00 Intake and Output: 02/25/18 02/25/18 06:59 18:59 Intake Total 580 Balance 580 - Medications Medications: Current Medications Amlodipine Besylate (Norvasc) 5 mg PO DAILY [facility] Last Admin: 02/25/18 09:27 Dose: 5 mg Apixaban (Eliquis) 5 mg PO BID [facility] Last Admin: 02/21/18 09:28 Dose: 5 mg Carvedilol (Coreg) 25 mg PO BID [facility] Last Admin: 02/25/18 09:27 Dose: 25 mg Clopidogrel Bisulfate (Plavix) 75 mg PO DAILY [facility] Last Admin: 02/25/18 09:27 Dose: 75 mg Diphenhydramine HCl (Benadryl) 25 mg PO Q6 PRN PRN Reason: Itching / Pruritus Last Admin: 02/23/18 10:50 Dose: 25 mg Fluocinonide (Lidex 0.05% Oint) 1 gm TOP QID [facility] Last Admin: 02/25/18 13:07 Dose: 1 appl Meropenem 1 gm/ Sodium (Chloride) 100 mls @ 100 mls/hr IVPB Q8H [facility]; Protocol Last Admin: 02/25/18 10:05 Dose: 100 mls/hr Vancomycin HCl 1 gm/ Sodium (Chloride) 200 mls @ 133.333 mls/hr IVPB Q24H [facility]; Protocol Last Admin: 02/25/18 04:03 Dose: 133.333 mls/hr Lactobacillus Acidophilus (Bacid Acidophilus) 1 cap PO BID [facility] Last Admin: 02/25/18 09:27 Dose: 1 cap Losartan Potassium (Cozaar) 50 mg PO DAILY [facility] Last Admin: 02/25/18 09:27 Dose: 50 mg Oxycodone HCl (Oxycodone Immediate Release Tab) 30 mg PO Q8H PRN PRN Reason: Pain, moderate (4-7) Last Admin: 02/25/18 09:26 Dose: 30 mg Polyethylene Glycol (Miralax) 17 gm PO HS [facility] Last Admin: 02/24/18 21:28 Dose: 17 gm Potassium Chloride (K-Dur 20 Meq Er Tab) 20 meq PO DAILY [facility] Last Admin: 02/25/18 09:27 Dose: 20 meq - Labs Labs: 02/24/18 11:36 02/24/18 11:36 PT 15.0 SECONDS (9.7-12.2) H 02/14/18 22:00 INR 1.4 02/14/18 22:00 APTT 41 SECONDS (21-34) H 02/14/18 22:00 - Constitutional Appears: Non-toxic, Chronically Ill - Head Exam Head Exam: NORMOCEPHALIC - Eye Exam Eye Exam: PERRL - ENT Exam ENT Exam: Mucous Membranes Dry - Neck Exam Neck Exam: absent: Lymphadenopathy - Respiratory Exam Respiratory Exam: Decreased Breath Sounds - Cardiovascular Exam Cardiovascular Exam: REGULAR RHYTHM - GI/Abdominal Exam GI & Abdominal Exam: Distended, Soft - Rectal Exam Rectal Exam: Deferred Assessment and Plan (1) Anemia Status: Acute (2) PICC (peripherally inserted central catheter) in place Status: Acute (3) Recurrent epistaxis Status: Acute (4) Osteomyelitis Status: Acute (5) History of total left knee replacement (TKR) Status: Acute (6) Infection of total left knee replacement Status: Acute
[2018-02-25] MEDS: POLYETHYLENE GLYCOL 3350 17 GM/Dose PACKET PO SCH (22:02)
[2018-02-26] MEDS: Meropenem 1 GM in Sodium Chloride 0.9% 100 ML IVPB SCH ×4 (02:31→23:53)
[2018-02-26] MEDS: Vancomycin 1 GM in Sodium Chloride 0.9% 200 ML IVPB SCH (05:56)
[2018-02-26] MEDS: oxyCODONE 30 mg Immediate Release Tab PO PRN ×2 (05:59→16:43)
[2018-02-26] MEDS: Potassium Chloride 20 mEq ER Tab PO SCH (09:23)
[2018-02-26] MEDS: Lactobacillus Acidophilus 500 MU Cap PO SCH ×2 (09:24→19:16)
--- NOTE | 2018-02-26 13:16 | CP.PCM.PN ---
Subjective - Date & Time of Evaluation Date of Evaluation: 02/26/18 Time of Evaluation: 09:00 - Subjective Subjective: afeb on IV rx no new complaints Objective - Vital Signs/Intake and Output Vital Signs (last 24 hours): Temp Pulse Resp BP Pulse Ox 98.5 F 76 20 112/68 97 02/26/18 07:00 02/26/18 07:00 02/26/18 07:00 02/26/18 09:23 02/26/18 07:00 Intake and Output: 02/26/18 02/26/18 06:59 18:59 Intake Total 580 Balance 580 - Medications Medications: Current Medications Amlodipine Besylate (Norvasc) 5 mg PO DAILY [facility] Last Admin: 02/26/18 09:23 Dose: 5 mg Apixaban (Eliquis) 5 mg PO BID [facility] Last Admin: 02/21/18 09:28 Dose: 5 mg Carvedilol (Coreg) 25 mg PO BID [facility] Last Admin: 02/26/18 09:23 Dose: 25 mg Clopidogrel Bisulfate (Plavix) 75 mg PO DAILY [facility] Last Admin: 02/26/18 09:24 Dose: 75 mg Diphenhydramine HCl (Benadryl) 25 mg PO Q6 PRN PRN Reason: Itching / Pruritus Last Admin: 02/23/18 10:50 Dose: 25 mg Fluocinonide (Lidex 0.05% Oint) 1 gm TOP QID [facility] Last Admin: 02/26/18 09:22 Dose: 1 appl Meropenem 1 gm/ Sodium (Chloride) 100 mls @ 100 mls/hr IVPB Q8H [facility]; Protocol Last Admin: 02/26/18 09:24 Dose: 100 mls/hr Vancomycin HCl 1 gm/ Sodium (Chloride) 200 mls @ 133.333 mls/hr IVPB Q24H [facility]; Protocol Last Admin: 02/26/18 05:56 Dose: 133.333 mls/hr Lactobacillus Acidophilus (Bacid Acidophilus) 1 cap PO BID [facility] Last Admin: 02/26/18 09:24 Dose: 1 cap Losartan Potassium (Cozaar) 50 mg PO DAILY [facility] Last Admin: 02/26/18 09:23 Dose: 50 mg Oxycodone HCl (Oxycodone Immediate Release Tab) 30 mg PO Q8H PRN PRN Reason: Pain, moderate (4-7) Last Admin: 02/26/18 05:59 Dose: 30 mg Polyethylene Glycol (Miralax) 17 gm PO HS [facility] Last Admin: 02/25/18 22:02 Dose: 17 gm Potassium Chloride (K-Dur 20 Meq Er Tab) 20 meq PO DAILY [facility] Last Admin: 02/26/18 09:23 Dose: 20 meq - Labs Labs: 02/24/18 11:36 02/24/18 11:36 PT 15.0 SECONDS (9.7-12.2) H 02/14/18 22:00 INR 1.4 02/14/18 22:00 APTT 41 SECONDS (21-34) H 02/14/18 22:00 - Constitutional Appears: Non-toxic, Chronically Ill - Head Exam Head Exam: NORMOCEPHALIC - Eye Exam Eye Exam: PERRL - ENT Exam ENT Exam: Mucous Membranes Dry - Neck Exam Neck Exam: absent: Lymphadenopathy - Respiratory Exam Respiratory Exam: Decreased Breath Sounds - Cardiovascular Exam Cardiovascular Exam: REGULAR RHYTHM - GI/Abdominal Exam GI & Abdominal Exam: Distended, Soft - Rectal Exam Rectal Exam: Deferred - Exam Exam: NORMAL INSPECTION - Back Exam Back Exam: absent: CVA tenderness (L), CVA tenderness (R) - Neurological Exam Neurological Exam: Alert, Awake, Oriented x3 - Psychiatric Exam Psychiatric exam: Depressed - Skin Skin Exam: Dry Assessment and Plan (1) Anemia Status: Acute (2) PICC (peripherally inserted central catheter) in place Status: Acute (3) Recurrent epistaxis Status: Acute (4) Osteomyelitis Status: Acute (5) History of total left knee replacement (TKR) Status: Acute (6) Infection of total left knee replacement Status: Acute
--- NOTE | 2018-02-26 16:01 | CP.PCM.PN ---
Subjective - Date & Time of Evaluation Date of Evaluation: 02/26/18 Time of Evaluation: 16:00 - Subjective Subjective: dictated Objective - Vital Signs/Intake and Output Vital Signs (last 24 hours): Temp Pulse Resp BP Pulse Ox 98.5 F 76 20 112/68 97 02/26/18 07:00 02/26/18 07:00 02/26/18 07:00 02/26/18 09:23 02/26/18 07:00 Intake and Output: 02/26/18 02/26/18 06:59 18:59 Intake Total 580 Balance 580 - Medications Medications: Current Medications Amlodipine Besylate (Norvasc) 5 mg PO DAILY [facility] Last Admin: 02/26/18 09:23 Dose: 5 mg Apixaban (Eliquis) 5 mg PO BID [facility] Last Admin: 02/21/18 09:28 Dose: 5 mg Carvedilol (Coreg) 25 mg PO BID [facility] Last Admin: 02/26/18 09:23 Dose: 25 mg Clopidogrel Bisulfate (Plavix) 75 mg PO DAILY [facility] Last Admin: 02/26/18 09:24 Dose: 75 mg Diphenhydramine HCl (Benadryl) 25 mg PO Q6 PRN PRN Reason: Itching / Pruritus Last Admin: 02/23/18 10:50 Dose: 25 mg Fluocinonide (Lidex 0.05% Oint) 1 gm TOP QID [facility] Last Admin: 02/26/18 13:30 Dose: 1 appl Vancomycin HCl 1 gm/ Sodium (Chloride) 200 mls @ 133.333 mls/hr IVPB Q24H [facility]; Protocol Last Admin: 02/26/18 05:56 Dose: 133.333 mls/hr Meropenem 1 gm/ Sodium (Chloride) 100 mls @ 100 mls/hr IVPB Q8H [facility]; Protocol Lactobacillus Acidophilus (Bacid Acidophilus) 1 cap PO BID [facility] Last Admin: 02/26/18 09:24 Dose: 1 cap Losartan Potassium (Cozaar) 50 mg PO DAILY [facility] Last Admin: 02/26/18 09:23 Dose: 50 mg Oxycodone HCl (Oxycodone Immediate Release Tab) 30 mg PO Q8H PRN PRN Reason: Pain, moderate (4-7) Last Admin: 02/26/18 05:59 Dose: 30 mg Polyethylene Glycol (Miralax) 17 gm PO HS [facility] Last Admin: 02/25/18 22:02 Dose: 17 gm Potassium Chloride (K-Dur 20 Meq Er Tab) 20 meq PO DAILY [facility] Last Admin: 02/26/18 09:23 Dose: 20 meq - Labs Labs: 02/24/18 11:36 02/24/18 11:36 PT 15.0 SECONDS (9.7-12.2) H 02/14/18 22:00 INR 1.4 02/14/18 22:00 APTT 41 SECONDS (21-34) H 02/14/18 22:00
[2018-02-26] MEDS: POLYETHYLENE GLYCOL 3350 17 GM/Dose PACKET PO SCH (22:34)
[2018-02-27] MEDS: Vancomycin 1 GM in Sodium Chloride 0.9% 200 ML IVPB SCH (04:05)
[2018-02-27] MEDS: oxyCODONE 30 mg Immediate Release Tab PO PRN ×2 (04:14→16:13)
[2018-02-27 06:30] LABS: BASO # 0.1 K/uL (0.0-0.2); BASO % 1.2 % (0.0-2.0); EOS # 0.3 K/uL (0.0-0.7); HEMOGLOBIN 9.7 g/dL (11.0-16.0); LYMPH # 1.3 K/uL (1.0-4.3); LYMPH % 27.2 % (20.0-40.0); MEAN CELL VOLUME 79.9 fL (81.0-99.0); MEAN CORPUSCULAR HEMOGLOBIN 27.1 pg (27.0-31.0); MEAN CORPUSCULAR HGB CONC 33.9 g/dL (33.0-37.0); MEAN PLATELET VOLUME 9.5 fL (7.2-11.7); MONO # 0.7 K/uL (0.0-0.8); MONO % 14.4 % (0.0-10.0); NEUT # 2.4 K/uL (1.8-7.0); NEUT % 50.2 % (50.0-75.0); RBC 3.58 Mil/uL (3.80-5.20); RED CELL DISTRIBUTION WIDTH 14.6 % (11.5-14.5); WHITE BLOOD COUNT 4.7 K/uL (4.8-10.8)
[2018-02-27] MEDS: Meropenem 1 GM in Sodium Chloride 0.9% 100 ML IVPB SCH ×2 (06:41→16:25)
--- NOTE | 2018-02-27 07:05 | PN ---
DATE: 02/26/2018 SUBJECTIVE: The patient is afebrile, feeling better. She is still completing the IV antibiotics. I spoke to her just and told her about this admission. PHYSICAL EXAMINATION VITAL SIGNS: T-max is 97.9, pulse 66, blood pressure is 112/66, respirations are 20. She denies any pain in the left shoulder now, has been tolerating IV antibiotics and remains afebrile. HEENT: Head is atraumatic. NECK: Supple. LUNGS: Clear. HEART: S1, S2 are regular. ABDOMEN: Soft, nontender. No guarding. No rigidity present. EXTREMITIES: She still has pain in the left leg where there is a spacer present. She says it makes noise, and I am hoping, you know, she is able to get a new knee. There is no swelling in the feet now. Right leg is unremarkable. LABORATORY DATA: Labs are noted. Labs show white count is 4.9. There are no new labs. We will repeat the labs tomorrow, and C-reactive protein is still 18.70 and ESR is 35. Vancomycin peak and trough were unremarkable. She is on once a day now. ASSESSMENT AND PLAN: We will let her go home tomorrow in the afternoon. I would give her some penicillin for two days more to cover for the Strep viridans that we have. We gave her Ampicillin for the Streptococcus viridans for 2 days or penicillin, and then we can stop all the antibiotics after 2 days, and she needs to follow up with the orthopedist and see if he can make sure that her leg is stable to get the new joint and it is sterile. Impression is that this patient had a PICC line infection. She came in with a nosebleed and she had problem with the other PICC line, and so she could not be sent over with the PICC line. The vascular surgeon did not want her to go with PICC line as there was a problem with that and she was complaining of shoulder pain. They did a JUDIE which is negative. Strep viridans was positive on 02/15/2018, and since then she has been on treatment. She has received here now vancomycin and meropenem because Cipro was interacting with her two anticoagulants, and she had deep vein thrombosis before in this leg and will need 6 months of Eliquis. She is on Plavix because of her heart, so we will follow, and we will discuss the plan with Dr. Harris and Dr. Reece. Talha Chatman MD
[2018-02-27 07:45] LABS: BLOOD UREA NITROGEN 8 mg/dL (7-17); CALCIUM 9.6 mg/dl (8.6-10.4); GFR NON-AFRICAN AMERICAN > 60
[2018-02-27 08:07] VITALS: PULSE 66
[2018-02-27] MEDS: Lactobacillus Acidophilus 500 MU Cap PO SCH (10:50)
[2018-02-27] MEDS: Potassium Chloride 20 mEq ER Tab PO SCH (10:51)
--- NOTE | 2018-02-27 12:58 | CP.PCM.PN ---
Subjective - Date & Time of Evaluation Date of Evaluation: 02/27/18 Time of Evaluation: 08:00 - Subjective Subjective: IV rx in progress dr rausch to evaluate possible d/c Objective - Vital Signs/Intake and Output Vital Signs (last 24 hours): Temp Pulse Resp BP Pulse Ox 98.3 F 66 20 142/88 99 02/27/18 07:00 02/27/18 07:00 02/27/18 07:00 02/27/18 10:50 02/27/18 07:00 Intake and Output: 02/27/18 02/27/18 06:59 18:59 Intake Total 420 Balance 420 - Medications Medications: Current Medications Amlodipine Besylate (Norvasc) 5 mg PO DAILY [facility] Last Admin: 02/27/18 10:50 Dose: 5 mg Apixaban (Eliquis) 5 mg PO BID [facility] Last Admin: 02/21/18 09:28 Dose: 5 mg Carvedilol (Coreg) 25 mg PO BID [facility] Last Admin: 02/27/18 10:50 Dose: 25 mg Clopidogrel Bisulfate (Plavix) 75 mg PO DAILY [facility] Last Admin: 02/27/18 10:50 Dose: 75 mg Diphenhydramine HCl (Benadryl) 25 mg PO Q6 PRN PRN Reason: Itching / Pruritus Last Admin: 02/23/18 10:50 Dose: 25 mg Fluocinonide (Lidex 0.05% Oint) 1 gm TOP QID [facility] Last Admin: 02/27/18 10:51 Dose: 1 appl Vancomycin HCl 1 gm/ Sodium (Chloride) 200 mls @ 133.333 mls/hr IVPB Q24H [facility]; Protocol Last Admin: 02/27/18 04:05 Dose: 133.333 mls/hr Meropenem 1 gm/ Sodium (Chloride) 100 mls @ 100 mls/hr IVPB Q8H [facility]; Protocol Last Admin: 02/27/18 06:41 Dose: 100 mls/hr Lactobacillus Acidophilus (Bacid Acidophilus) 1 cap PO BID [facility] Last Admin: 02/27/18 10:50 Dose: 1 cap Losartan Potassium (Cozaar) 50 mg PO DAILY [facility] Last Admin: 02/27/18 10:50 Dose: 50 mg Oxycodone HCl (Oxycodone Immediate Release Tab) 30 mg PO Q8H PRN PRN Reason: Pain, moderate (4-7) Last Admin: 02/27/18 04:14 Dose: 30 mg Polyethylene Glycol (Miralax) 17 gm PO HS [facility] Last Admin: 02/26/18 22:34 Dose: 17 gm Potassium Chloride (K-Dur 20 Meq Er Tab) 20 meq PO DAILY [facility] Last Admin: 02/27/18 10:51 Dose: 20 meq - Labs Labs: 02/27/18 06:23 02/27/18 06:23 PT 15.0 SECONDS (9.7-12.2) H 02/14/18 22:00 INR 1.4 02/14/18 22:00 APTT 41 SECONDS (21-34) H 02/14/18 22:00 - Constitutional Appears: Non-toxic, Chronically Ill - Head Exam Head Exam: NORMOCEPHALIC - Eye Exam Eye Exam: PERRL - ENT Exam ENT Exam: Mucous Membranes Dry - Neck Exam Neck Exam: absent: Lymphadenopathy - Respiratory Exam Respiratory Exam: Decreased Breath Sounds - Cardiovascular Exam Cardiovascular Exam: REGULAR RHYTHM - GI/Abdominal Exam GI & Abdominal Exam: Distended, Soft - Rectal Exam Rectal Exam: Deferred - Exam Exam: NORMAL INSPECTION - Extremities Exam Extremities Exam: absent: Pedal Edema, Tenderness - Back Exam Back Exam: absent: CVA tenderness (L), CVA tenderness (R) - Neurological Exam Neurological Exam: Alert, Awake, Oriented x3 Assessment and Plan (1) Anemia Status: Acute (2) PICC (peripherally inserted central catheter) in place Status: Acute (3) Recurrent epistaxis Status: Acute (4) Osteomyelitis Status: Acute (5) History of total left knee replacement (TKR) Status: Acute (6) Infection of total left knee replacement Status: Acute
--- NOTE | 2018-02-27 14:52 | CP.PCM.PN ---
Subjective - Date & Time of Evaluation Date of Evaluation: 02/27/18 Time of Evaluation: 02:40 - Subjective Subjective: dictated Objective - Vital Signs/Intake and Output Vital Signs (last 24 hours): Temp Pulse Resp BP Pulse Ox 98.3 F 66 20 142/88 99 02/27/18 07:00 02/27/18 07:00 02/27/18 07:00 02/27/18 10:50 02/27/18 07:00 Intake and Output: 02/27/18 02/27/18 06:59 18:59 Intake Total 420 Balance 420 - Medications Medications: Current Medications Amlodipine Besylate (Norvasc) 5 mg PO DAILY [facility] Last Admin: 02/27/18 10:50 Dose: 5 mg Apixaban (Eliquis) 5 mg PO BID [facility] Last Admin: 02/21/18 09:28 Dose: 5 mg Carvedilol (Coreg) 25 mg PO BID [facility] Last Admin: 02/27/18 10:50 Dose: 25 mg Clopidogrel Bisulfate (Plavix) 75 mg PO DAILY [facility] Last Admin: 02/27/18 10:50 Dose: 75 mg Diphenhydramine HCl (Benadryl) 25 mg PO Q6 PRN PRN Reason: Itching / Pruritus Last Admin: 02/23/18 10:50 Dose: 25 mg Fluocinonide (Lidex 0.05% Oint) 1 gm TOP QID [facility] Last Admin: 02/27/18 10:51 Dose: 1 appl Vancomycin HCl 1 gm/ Sodium (Chloride) 200 mls @ 133.333 mls/hr IVPB Q24H [facility]; Protocol Last Admin: 02/27/18 04:05 Dose: 133.333 mls/hr Meropenem 1 gm/ Sodium (Chloride) 100 mls @ 100 mls/hr IVPB Q8H [facility]; Protocol Last Admin: 02/27/18 06:41 Dose: 100 mls/hr Lactobacillus Acidophilus (Bacid Acidophilus) 1 cap PO BID [facility] Last Admin: 02/27/18 10:50 Dose: 1 cap Losartan Potassium (Cozaar) 50 mg PO DAILY [facility] Last Admin: 02/27/18 10:50 Dose: 50 mg Oxycodone HCl (Oxycodone Immediate Release Tab) 30 mg PO Q8H PRN PRN Reason: Pain, moderate (4-7) Last Admin: 02/27/18 04:14 Dose: 30 mg Polyethylene Glycol (Miralax) 17 gm PO HS [facility] Last Admin: 02/26/18 22:34 Dose: 17 gm Potassium Chloride (K-Dur 20 Meq Er Tab) 20 meq PO DAILY [facility] Last Admin: 02/27/18 10:51 Dose: 20 meq - Labs Labs: 02/27/18 06:23 02/27/18 06:23 PT 15.0 SECONDS (9.7-12.2) H 02/14/18 22:00 INR 1.4 02/14/18 22:00 APTT 41 SECONDS (21-34) H 02/14/18 22:00
[2018-02-27 16:45] VITALS: BP 123/69; TEMP 97.6; O2SAT 98
--- NOTE | 2018-02-27 19:55 | PN ---
DATE: 02/27/2018 SUBJECTIVE: The patient is afebrile. She is doing well. She got meropenem today and vitals are stable. She denies any chest pain. No shoulder pain. No right-sided pain. She does point to right leg edema, she was on Eliquis which we probably held, because I wanted to put a PICC line, but needs to be renewed again. She had DVT and will need 6 months of treatment with Eliquis. PHYSICAL EXAMINATION: VITAL SIGNS: T max is 98.3, pulse 66, blood pressure 142/88, respirations are 20. GENERAL: The patient is alert, oriented x3. HEENT: Pupils are reacting to light. Mild pallor present. NECK: Supple. LUNGS: Clear. HEART: S1, S2 are regular. ABDOMEN: Soft, nontender. No guarding, no rigidity present. EXTREMITIES: She has a spacer at this time. Left ankle is not stolen but she has been mostly in the bed. Right leg has trace edema. LABORATORY DATA: ESR is 35 and her CRP last was 18.70. She will be off antibiotics after 2 days, I was going to give her amoxicillin before, but I realized that the strep viridans is not sensitive to penicillin, so we will send her home for 2 days and then it can be stopped and she will be on her other medications except antibiotics. The patient needs to follow with Dr. Belkis page for further treatment and will probably need to make sure that the joint is sterile. IMPRESSION: She came in with a peripherally inserted central catheter line infection with nosebleed and had another problem with a another peripherally inserted central catheter line and from the first peripherally inserted central catheter line she had Strep viridans inspection. She had a JUDIE done which was negative. She already had cardiac issues and she has been on deep venous thrombosis treatment and that also aggravated her problems. At this time, she has completed 12 days and two days we are going to give oral antibiotics and she will be off antibiotics after that. Talha Chatman MD
== END 2018-02-27 17:41 | disposition home or self-care (01) | DRG 315 ==
LOC: C.ER 19:46 → C.9E 23:23 → C.6T 02-15 03:46 → OBSVTOIN 02-17 17:56
PROVIDERS: ADMIT Internal Medicine; ATTEND Internal Medicine
PROC: 02PYX3Z Removal of Infusion Device from Great Vessel, External Approach (ICD-10-PCS; principal; 2018-02-15)
PROC: 02HV33Z Insertion of Infusion Device into Superior Vena Cava, Percutaneous Approach (ICD-10-PCS; 2018-02-15)
PROC: B518ZZA Fluoroscopy of Superior Vena Cava, Guidance (ICD-10-PCS; 2018-02-15)
PROC: B246ZZ4 Ultrasonography of Right and Left Heart, Transesophageal (ICD-10-PCS; 2018-02-22)
DX: T80.219A Unspecified infection due to central venous catheter, initial encounter (principal); R78.81 Bacteremia; D68.9 Coagulation defect, unspecified; M86.9 Osteomyelitis, unspecified; D64.9 Anemia, unspecified; T84.54XD Infection and inflammatory reaction due to internal left knee prosthesis, subsequent encounter; B95.4 Other streptococcus as the cause of diseases classified elsewhere; E78.5 Hyperlipidemia, unspecified; R04.0 Epistaxis; J34.2 Deviated nasal septum; I10 Essential (primary) hypertension; E78.00 Pure hypercholesterolemia, unspecified; K59.00 Constipation, unspecified; L29.9 Pruritus, unspecified; Z96.652 Presence of left artificial knee joint; Y83.1 Surgical operation with implant of artificial internal device as the cause of abnormal reaction of the patient, or of later complication, without mention of misadventure at the time of the procedure; Y84.8 Other medical procedures as the cause of abnormal reaction of the patient, or of later complication, without mention of misadventure at the time of the procedure; Z79.01 Long term (current) use of anticoagulants; Z79.02 Long term (current) use of antithrombotics/antiplatelets; Z86.718 Personal history of other venous thrombosis and embolism; Z86.79 Personal history of other diseases of the circulatory system; Z87.891 Personal history of nicotine dependence